=== PATIENT | male | born 1950 | race Caucasian/White ===

== ENCOUNTER 2018-08-23 12:21 | Emergency (ER) | payer MEDICARE, SELFPAY ==
[2018-08-23 12:22] VITALS: BP 167/90; PULSE 64; RESP 16; TEMP 36.7; O2SAT 97; BMI 30.4
--- NOTE | 2018-08-23 12:55 | CT_ITS ---
STUDY: CT ABDOMEN AND PELVIS WITHOUT CONTRAST REASON FOR EXAM: Male, 67 years old. 4 day history of left lower quadrant pain with nausea and vomiting. RADIATION DOSAGE (If Supplied By Facility): CTDIvol = ( 14.62 ) mGy, DLP = ( 713.48 ) mGycm TECHNIQUE: Transaxial images were obtained from the dome of the diaphragm to the symphysis pubis without oral contrast, and without intravenous contrast. Sagittal and coronal images were reconstructed. Individualized dose optimization techniques were used for this CT. COMPARISON: None. FINDINGS: The visualized lung bases are unremarkable. The visualized portions of the heart are within normal limits. Normal liver. Normal gallbladder and extrahepatic biliary system. There is mild splenomegaly. Normal pancreas. Normal bilateral adrenal glands. Normal right kidney. Mild degree of left hydronephrosis and left hydroureter due to a 4.4 mm calculus in the proximal portion of the left ureter. There is evidence of left perinephric stranding and left periureteric stranding. There is a small hiatal hernia. Normal small intestine. There are multiple colonic diverticula consistent with diverticulosis. The appendix is visualized and appears normal. There is scattered atherosclerotic calcification of the abdominal aorta, without a demonstrated aneurysm. Normal inferior vena cava. Normal retroperitoneum. Normal urinary bladder. There is a left-sided inguinal hernia containing adipose tissue. Small umbilical hernia containing fat. There are degenerative changes of the visualized lumbar spine. Minimal anterior listhesis of L4 on L5 with spondylolysis of the pars interarticularis of the L4 vertebrae. CT/Abdomen/Pelvis without Cont IMPRESSION: 4.4 mm calculus in the proximal portion of the left ureter causing left hydronephrosis with left perinephric stranding. Electronically Signed: Sam Fletcher MD at 14:27 EST Tel [phone], Service support ,
--- NOTE | 2018-08-23 12:57 | ED.VISSUMM ---
- ER Visit Summary Date of Service: 08/23/18 Chief Complaint: Abdominal pain History of Present Illness: The patient is a 67 M with left lower quadrant abdominal pain. Symptoms started about 4 days ago. They have waxed and waned. He do not radiate or migrate. Associate with nausea and vomiting. The patient has never had abdominal surgery or colonoscopy. Denies any bowel changes. Denies any urinary symptoms. Denies back pain. Denies fevers. Physical Examination: Afebrile vital signs unremarkable except for a blood pressure of 167/90. Nontoxic and in no acute distress. Alert and oriented. Heart regular rate and rhythm. Lungs clear. Abdomen tender left lower quadrant. No guarding or rebound. Skin appears normal. Test Results: Labs, urinalysis, and CT pending. Emergency Department Course and Treatment: Patient treated with fluids, morphine, and Zofran while awaiting results. CBC normal. BUN 22 and creatinine 2.41. Total bilirubin 1.3. Lipase normal. Urinalysis unremarkable. CT showed a proximal left ureter stone 4.4 mm with hydronephrosis and stranding. Patient is doing well on reevaluation and would like to go home. I discussed him with Dr. To. He will follow-up in the office. He will follow-up with the elevated creatinine. Patient was given a prescription for Percocet, Zofran, and Flomax. Return for any new or worsening issues. Treatment Plan: As above Disposition: Discharge Impression: 1. Ureteral colic 2. Elevated creatinine This note was generated with [employer] dictation software. It may contain incorrect words, spelling, and punctuation that were not noted in review of the chart prior to signing ED Disposition - Plan for ED Patient: Chief Complaint: Abd Pain Referrals: NOT,DEFINED [NON-STAFF] -
[2018-08-23 13:07] LABS: Absolute Lymphocyte Count 0.57 X10^3/ul (0.83-4.51); Absolute Neutrophil Count 8.2 X10^3/uL (2.0-7.7); Basophil# 0.02 X10^3/uL; Basophil% 0.2 % (0-1); Eosinophil# 0.09 X10^3/uL; Eosinophils% 0.9 % (0-5); Hemoglobin 14.2 g/dl (13.0-16.5); Lymphocyte # 0.57 X10^3/ul (4.0); Mean Corp Hgb Conc 34.6 g/gl (32-36); Mean Corpuscular Hgb 30.2 pg (27.0-32.0); Mean Corpuscular Volume 87.2 fL (80-94); Mean Platelet Vol. 8.2 fl (6.2-12.0); Monocyte% 6.3 % (0-10); Neutrophil # 8.19 X10^3/uL (2.7-7.7); Neutrophil % 86.4 % (47-70); Platelet Count 202 K/mm3 (150-450); RBC Distribution Width CV 13.1 % (11.6-14.6); RBC Distribution Width SD 40.9 fl (35.1-43.9); White Blood Count 9.5 K/mm3 (4.4-11.0)
[2018-08-23 13:08] LABS: Differential Indicated SCAN CRITERIA MET; POSITIVE COUNT NO; POSITIVE DIFFERENTIAL YES; POSITIVE MORPHOLOGY NO
[2018-08-23 13:20] LABS: ALB/GLOB Ratio 1.2 RATIO (0.9-2.4); AST(SGOT) 21 U/L (15-37); Alanine Aminotransfer ALT/SGPT 28 U/L (16-61); Albumin, Serum 3.8 g/dL (3.2-5.0); Alkaline Phosphatase 88 U/L (45-117); Anion Gap 8 (5-15); BUN 22 mg/dL (7-18); BUN/Creat Ratio 9.1 RATIO (10-20); Calcium,Total 8.5 mg/dL (8.5-10.1); Chloride 104 mmol/L (98-107); Creatinine, Serum 2.41 mg/dL (0.70-1.30); EST Glomerular Filtration Rate 29 mL/min (>60); Est Glom Filt Rate - Afr Amer 35 mL/min (>60); Estimated Creatinine Clearance 28.38 ml/min; Globulin 3.3 g/dL (2.2-4.2); Glucose 89 mg/dL (74-106); Lipase 118 U/L (73-393); Potassium 3.8 mmol/L (3.5-5.1); Protein, Total 7.1 g/dL (6.4-8.2); Sodium Level 138 mmol/L (136-145)
[2018-08-23] MEDS: Ondansetron 4 MG/2 ML Vial IV (13:42)
[2018-08-23] MEDS: Morphine 4 MG/ML Syringe IV (13:42)
[2018-08-23] MEDS: 0.9% Normal Saline 1,000 ML 1000 ML IV (13:42)
[2018-08-23 15:47] LABS: Bacteria 0 SEEN /hpf (None Seen); Mucous, Urine 0 SEEN /hpf (<or=2+); Red Blood Cells-Urine 0 SEEN /hpf (0-5); Squamous Epithelial Cells - UA 0 SEEN /hpf (0-5); White Blood Cells 0 SEEN /hpf (0-5)
[2018-08-23 15:49] LABS: Glucose, Dipstick Normal (Normal); Ketone-Dipstick 15 mg/dl (Negative); Leukocyte Esterase-Dipstick Negative /ul (Negative); Nitrite-Dipstick Negative (Negative); Occult Blood-Urine Negative /ul (Negative); Protein-Dipstick 15 mg/dl (Negative); Specific Gravity, Urine 1.015 (1.002-1.030); Urine Bilirubin Dipstick Negative (Negative); Urine Urobilinogen Normal (Normal)
[2018-08-23 15:52] LABS: Color, Urine Yellow (Yellow); Urine Clarity Clear (Clear)
--- NOTE | 2018-08-23 16:37 | ED.DEP ---
ED Disposition - Plan for ED Patient: Chief Complaint: Abd Pain Instructions: Understanding Kidney Stones Prescriptions: Oxycodone HCl/Acetaminophen [Percocet 5/325] 1 tab PO Q6H PRN PRN 3 Days #12 tab PRN Reason: Pain Ondansetron [Zofran Odt] 4 mg PO Q8H PRN PRN #10 tab PRN Reason: Nausea Tamsulosin HCl [Flomax] 0.4 mg PO DAILY #7 cap Referrals: Manfred To MD [STAFF PHYSICIAN] - Additional Instructions: Call Dr. To tomorrow to set up a follow-up appointment
[2018-08-23] MEDS: HYDROcodone Bitartrate/Apap 5/325 Tablet PO (16:56)
== END 2018-08-23 17:05 | disposition home or self-care (01) ==
LOC: ED 13:21
PROVIDERS: Emergency Provider Emergency Medicine
DX: N13.2 Hydronephrosis with renal and ureteral calculous obstruction (principal); Z87.442 Personal history of urinary calculi; R79.89 Other specified abnormal findings of blood chemistry; I10 Essential (primary) hypertension
CPT/HCPCS: 74176; 80053; 81001; 83690; 85025; 96361; 96374; 96375; J7030; A4216; J2405

== ENCOUNTER 2018-08-23 20:32 | Inpatient (IN) | payer MEDICARE, SELFPAY ==
[2018-08-23 20:33] VITALS: BP 159/80; PULSE 59; RESP 18; TEMP 36.2; O2SAT 98
[2018-08-23 20:34] VITALS: BP 159/80; PULSE 58; RESP 17; TEMP 36.2; O2SAT 98; BMI 30.4
[2018-08-23] MEDS: 0.9% Normal Saline 1,000 ML 999 ML IV (21:37)
[2018-08-23] MEDS: Ondansetron 4 MG/2 ML Vial IV (21:37)
[2018-08-23] MEDS: Morphine 4 MG/ML Syringe IV (21:37)
--- NOTE | 2018-08-23 21:54 | HP.PCM_ITS ---
Problem List (1) Left ureteral calculus Status: Acute (2) acute kidney injury Status: Acute (3) Left sided pyelonephritis Status: Acute (4) Hydronephrosis, left Status: Acute (5) Hypertension Status: Chronic History of Present Illness Date of Admission: 08/23/18 Chief Complaint: Left sided abdominal pain since Monday on and off The patient is a 67 year old M with no significant medical problem but seems possible undiagnosed hypertension came to ER in the morning when he had left si ded abdominal pain since Monday. The pain is starting to Monday along with nausea and vomiting and then it went away. For last 2 days it was mild and he did not bother her too much but today in the morning pain became very severe, colicky nature, localized left lumbar region that brought him to ER. In ED, CT abdomen was done that showed 4.4 mm calculus in proximal portion of left ureter causing left hydronephrosis with left perinephric stranding. Patient did not want to get admitted but basic blood work showed creatinine 2.41, BUN 22, normal transaminases but bili 1.3. UA was bland and negative for pyuria or hematuria. Patient went home on Percocet, Flomax and Zofran but came back in the evening when the pain got very excruciating and thereafter he is admitted. [] ED vitals shows blood pressure 167/90, no fever, no tachypnea, no tachycardia or hypoxia. No leukocytosis. He had a history of spontaneous passing of kidney stone about 25 years ago. Patient does not see any doctor. Past Medical History Past Medical History (Chronic Problems): Chronic Problems Hypertension (Chronic) Allergies No Known Allergies Allergy (Verified 08/23/18 20:33) Home Medications: Ambulatory Orders Medication Instructions Recorded Ondansetron [Zofran Odt] 4 mg PO Q8H PRN PRN #10 tab 08/23/18 Oxycodone HCl/Acetaminophen 1 tab PO Q6H PRN PRN 3 Days #12 tab 08/23/18 [Percocet 5/325] Tamsulosin HCl [Flomax] 0.4 mg PO DAILY #7 cap 08/23/18 Smoking Status: Never smoker - *Family History Paternal History Items: No pertinent history - No significant history of kidney stone and family Review of Systems Constitutional: Reports: Anorexia, Weakness, Fatigue. Denies: Chills, Fever HEENT: Denies: Head Aches, Sinus Congestion, Sinus Drainage Cardiovascular: Denies: Chest Pain, Palpitations Respiratory: Denies: Cough, Shortness of breath at rest, Sputum production Gastrointestinal: Reports: Abdominal Pain, Nausea. Denies: Hematemesis, Hematochezia, Melena Genitourinary: Denies: Dysuria, Frequency, Hematuria, Incontinence, Nocturia, Retention, Urgency Musculoskeletal: Denies: Joint Pain, Joint Tenderness Skin: Denies: Rash, Wounds Neurological: Denies: Numbness, Tingling, Focal weakness Psychiatric: Denies: Anxiety, Depression, Homicidal Ideations, Suicidal Ideations Hematologic/ Lymphatic: Denies: Easy Bruising, Easy Bleeding VTE Information - Inpt Only VTE Present on Admission: No VTE Mechan Device Prophylaxis: None VTE Pharm Prophylaxis ordered?: Yes Patient Problems: Active and Suspected Problems Left ureteral calculus (Acute) acute kidney injury (Acute) Left sided pyelonephritis (Acute) Hydronephrosis, left (Acute) - Physical Exam General: Alert, Oriented x3, Cooperative HEENT: Atraumatic, PERRLA, EOMI, Normocephalic Neck: Supple, No JVD, Negative Carotid Bruits Lungs: Clear to auscultation, Normal air movement, No rhonchi, No wheeze, No rales Cardiovascular: Regular rate, Regular Rhythm, Normal S1, Normal S2, No murmurs Abdomen: Bowel Sounds Present, Soft, Tender - Tenderness present over left lumbar region and abdomen. No rebound tenderness. No guarding/rigidity. No renal angle tenderness or fullness., - Extremities: No edema, Capillary Refill Less than 3 Seconds Skin: No rashes, No breakdown Musculoskeletal: No Tenderness to Palpation of Joints or Extremities Neurological: Cranial nerves II-XII grossly intact, Deep Tendon Reflexes 2+/4 and Symmetrical, Neuro grossly intact, Motor Exam 5/5 strength throughout Psych/Mental Status: Normal Affect, Appropriate Vital Signs Temp Pulse Resp BP Pulse Ox 97.1 F L 58 L 17 159/80 H 98 08/23/18 20:34 08/23/18 20:34 08/23/18 20:34 08/23/18 20:34 08/23/18 20:34 Oxygen Delivery Method Room Air Weight: 200 lb Body Mass Index (BMI) 30.4 Assessment/Plan All Active Problems Left ureteral calculus (Acute) acute kidney injury (Acute) Left sided pyelonephritis (Acute) Hydronephrosis, left (Acute) The patient is a 67 year old M with no significant medical problem but seems possible undiagnosed hypertension came to ER in the morning when he had left sided abdominal pain since Monday. The pain is starting to Monday along with nausea and vomiting and then it went away. For last 2 days it was mild and he did not bother her too much but today in the morning pain became very severe, colicky nature, localized left lumbar region that brought him to ER. In ED, CT abdomen was done that showed 4.4 mm calculus in proximal portion of left ureter causing left hydronephrosis with left perinephric stranding. Patient did not want to get admitted but basic blood work showed creatinine 2.41, BUN 22, normal transaminases but bili 1.3. UA was bland and negative for pyuria or hematuria. Patient went home on Percocet, Flomax and Zofran but came back in the evening when the pain got very excruciating and thereafter he is admitted. [] ED vitals shows blood pressure 167/90, no fever, no tachypnea, no tachycardia or hypoxia. No leukocytosis. He had a history of spontaneous passing of kidney stone about 25 years ago. Patient does not see any doctor. 1. Left ureteric calculus 4.4 mm with consequent obstructive uropathy, left hydronephrosis and pyelonephritis: Patient is being admitted on the [facility] floor. Started on IV fluid normal saline. Started IV antibiotic ceftriaxone 1 g every 12 hourly. Discussed with urologist Dr. To and advised conservative management with IV fluid, antibiotics, Flomax and if he does not pass it spontaneously will need cystoscopy/stenting, perhaps on Monday. 2. Left pyelonephritis: Even UA is negative but in view of pyelonephritis and obstructive uropathy, started on antibiotic as mentioned above. Blood cultures x2 and urine culture ordered. 3. Acute kidney injury, probably related to prerenal from nausea vomiting or post renal, but hard to justify as it is unilateral left ureteric obstruction. CT abdomen reported as normal right kidney with mild degree of left hydronephrosis and left hydroureter with left perinephric stranding and periureteric stranding. 4. Possible undiagnosed hypertension: Patient blood pressure is high as mentioned in ER. Started on amlodipine. Follow-up blood pressure trend and titrate antihypertensive medication accordingly. 5. DVT prophylaxis: On heparin 5000 units subcutaneous twice daily. This note was generated with [employer] dictation software. Every effort was made to ensure accuracy, however computerized bait man mistakes may persist. Code Visit Inpatient E&M: 59526 Init Hosp L3
[2018-08-23 22:30] VITALS: BMI 30.7
[2018-08-23 22:44] VITALS: BP 150/77; PULSE 56; RESP 15; TEMP 36.8; O2SAT 99
--- NOTE | 2018-08-23 22:53 | ED.VISSUMM ---
- ER Visit Summary Date of Service: 08/23/18 Chief Complaint: Flank pain History of Present Illness: The patient is a 67 M who has left-sided flank pain. He was seen here earlier today and diagnosed with a kidney stone. See that dictation for details. He went home but he was unable to bear the pain. He has never seen a urologist before. He denies any hematuria. No fevers. Physical Examination: Vital signs reviewed. HEENT exam unremarkable. Heart is regular rate and rhythm without murmurs. Lungs are clear to auscultation. Abdomen is soft and nontender. Extremities reveal no edema. Skin exam normal. Neurologic exam normal. Test Results: None performed as he already had labs, CAT scan and urinalysis a few hours ago Emergency Department Course and Treatment: Patient was given morphine, Zofran and normal saline. He was discussed with the hospitalist for admission. I did talk with Dr. To who recommended medical management for this. Treatment Plan: [] Disposition: Admit Impression: Left ureterolithiasis Acute renal failure This note was generated with [employer] software. It may contain incorrect words, spelling, and punctuation that were not noted in review of the chart prior to signing ED Disposition - Plan for ED Patient: Disposition: Acute Care Hospital [facility] Chief Complaint: Flank Pain
[2018-08-23 23:47] VITALS: BP 157/82; PULSE 57
[2018-08-23] MEDS: Tamsulosin HCl 0.4 MG Capsule PO (23:52)
[2018-08-23] MEDS: amLODIPine 5 MG Tablet PO (23:53)
[2018-08-23] MEDS: Famotidine 20 MG Tablet PO (23:53)
[2018-08-23] MEDS: Heparin Injection (Vial) 5,000 UNIT/ML VIAL 5000 UNIT SC (23:53)
[2018-08-24] MEDS: Ceftriaxone 1 GM/50 ML BAG IV ×3 (01:16→22:34)
[2018-08-24 04:26] VITALS: BP 135/74; PULSE 61; RESP 18; TEMP 37.2; O2SAT 96
[2018-08-24] MEDS: BENZOCAINE/MENTHOL 1 LOZENGE 2 LOZENGE MUCOUS MEM (06:04)
[2018-08-24] MEDS: 0.9% Normal Saline 1,000 ML 150 ML IV ×4 (06:39→20:54)
--- NOTE | 2018-08-24 06:54 | CON.PCM_ITS ---
Reason for Consult Date of Consultation: 08/24/18 Reason for Consultation: Left kidney stone 4 mm History of Present Illness: The patient is a 67 year old male who presented to the ER with a 4 mm stone in the mid ureter E then re-presented again with the same stone and severe pain pos sible he could pass a stone today talked about the options of observation and strain in the urine to see if he could spontaneously spot past the stone versus surgical intervention he is okay with a trial of passage. Past Medical History Past Medical History (Chronic Problems): Chronic Problems Hypertension (Chronic) Allergies No Known Allergies Allergy (Verified 08/23/18 20:33) Home Medications: Ambulatory Orders Medication Instructions Recorded Ondansetron [Zofran Odt] 4 mg PO Q8H PRN PRN #10 tab 08/23/18 Oxycodone HCl/Acetaminophen 1 tab PO Q6H PRN PRN 3 Days #12 tab 08/23/18 [Percocet 5/325] Tamsulosin HCl [Flomax] 0.4 mg PO DAILY 08/23/18 Surgical History: noncontributory Psychiatric History: No pertinent psych hx Lives: With Family Smoking Status: Never smoker Alcohol: None Drugs: None - *Family History Paternal History Items: No pertinent history - No significant history of kidney stone and family Review of Systems Constitutional: Denies: Chills, Fever, Weight Change HEENT: Denies: Head Aches, Sinus Congestion, Sinus Drainage Cardiovascular: Denies: Chest Pain, Palpitations Respiratory: Denies: Cough, Shortness of breath at rest, Sputum production Gastrointestinal: Denies: Abdominal Pain, Nausea, Vomiting Genitourinary: Denies: Dysuria Musculoskeletal: Denies: Joint Pain, Joint Tenderness Skin: Denies: Rash, Wounds Neurological: Denies: Numbness, Tingling, Focal weakness Psychiatric: Denies: Anxiety, Depression, Homicidal Ideations, Suicidal Ideations Hematologic/ Lymphatic: Denies: Easy Bruising, Easy Bleeding Physical Exam - Physical Exam Vital Signs Temp 98.9 F 08/24/18 04:26 Pulse 61 08/24/18 04:26 Resp 18 08/24/18 04:26 BP 135/74 H 08/24/18 04:26 Pulse Ox 96 08/24/18 04:26 Intake & Output 08/22/18 08/23/18 08/24/18 23:59 23:59 23:59 Intake Total 1537 / 1537 Output Total 650 / 650 Balance 887 / 887 Weight: 91.6 kg Intake: Oral 500 / 500 IV fluid/meds 1037 / 1037 Output: Urine 650 / 650 General: Alert, Oriented x3 HEENT: Atraumatic Oral: Moist Mucosa Neck: Supple Lungs: Normal air movement Cardiovascular: Regular rate Abdomen: Soft, Obese Assessment/Plan All Active Problems Left ureteral calculus (Acute) acute kidney injury (Acute) Left sided pyelonephritis (Acute) Hydronephrosis, left (Acute) 67-year-old male with a small stone in the mid left ureter, strain all the urine recommend Flomax 0.4 mg daily push fluids will review over the weekend if fails to pass the stone may have to take the surgery if he fails to pass stone. Patient is agreeable with plan.
[2018-08-24] MEDS: Morphine 2 MG/ML Syringe IV ×3 (07:25→20:53)
[2018-08-24 07:42] LABS: Absolute Lymphocyte Count 0.51 X10^3/ul (0.83-4.51); Absolute Neutrophil Count 6.3 X10^3/uL (2.0-7.7); Basophil# 0.01 X10^3/uL; Basophil% 0.1 % (0-1); Eosinophil# 0.11 X10^3/uL; Eosinophils% 1.5 % (0-5); Hematocrit 35.4 % (40-54); Hemoglobin 12.2 g/dl (13.0-16.5); Lymphocyte # 0.51 X10^3/ul (4.0); Lymphocyte % 6.8 % (19-41); Mean Corp Hgb Conc 34.5 g/gl (32-36); Mean Corpuscular Hgb 30.7 pg (27.0-32.0); Mean Corpuscular Volume 89.2 fL (80-94); Mean Platelet Vol. 8.3 fl (6.2-12.0); Monocyte# 0.54 X10^3/uL; Monocyte% 7.2 % (0-10); Neutrophil # 6.28 X10^3/uL (2.7-7.7); Neutrophil % 84.3 % (47-70); Platelet Count 179 K/mm3 (150-450); RBC Distribution Width SD 41.3 fl (35.1-43.9); Red Blood Count 3.97 M/mm3 (4.6-6.2); White Blood Count 7.5 K/mm3 (4.4-11.0)
[2018-08-24 07:46] LABS: Differential Indicated SCAN CRITERIA MET; POSITIVE COUNT NO; POSITIVE DIFFERENTIAL YES; POSITIVE MORPHOLOGY NO
[2018-08-24 07:47] LABS: Anion Gap 6 (5-15); BUN 20 mg/dL (7-18); BUN/Creat Ratio 8.9 RATIO (10-20); Calcium,Total 7.7 mg/dL (8.5-10.1); Chloride 108 mmol/L (98-107); Creatinine, Serum 2.24 mg/dL (0.70-1.30); EST Glomerular Filtration Rate 31 mL/min (>60); Est Glom Filt Rate - Afr Amer 38 mL/min (>60); Estimated Creatinine Clearance 30.54 ml/min; Glucose 100 mg/dL (74-106); Sodium Level 139 mmol/L (136-145)
[2018-08-24 08:46] VITALS: BP 150/86; PULSE 57; RESP 18; TEMP 36.6; O2SAT 95
[2018-08-24] MEDS: 0.9% NaCl Peripheral Flush Adult/Peds IV (09:16)
[2018-08-24] MEDS: Heparin Injection (Vial) 5,000 UNIT/ML VIAL 5000 UNIT SC ×2 (09:31→22:34)
[2018-08-24] MEDS: amLODIPine 5 MG Tablet PO (09:31)
[2018-08-24] MEDS: Famotidine 20 MG Tablet PO ×2 (09:31→22:34)
--- NOTE | 2018-08-24 10:53 | PCM.PN.HOSP ---
Patient Problems: Active and Suspected Problems Left ureteral calculus (Acute) acute kidney injury (Acute) Left sided pyelonephritis (Acute) Hydronephrosis, left (Acute) Subjective: Patient admitted with a left ureteric stone. He still complains of mild lower abdominal pain. He denies any fever or chills, cough or chest pain, shortness of breath, abdominal pain, nausea or vomiting. Review of systems otherwise negative. Labs and vitals reviewed. Vitals/I&O's: Vital Signs Temp Pulse Resp BP Pulse Ox 97.9 F 57 L 18 150/86 H 95 08/24/18 08:46 08/24/18 08:46 08/24/18 08:46 08/24/18 08:46 08/24/18 08:46 Oxygen Delivery Method Room Air Weight: 201 lb 15.095 oz Body Mass Index (BMI) 30.7 Intake and Output for Last 24 Hours 08/22/18 08/23/18 08/24/18 23:59 23:59 23:59 Intake Total 1537 / 1537 Output Total 650 / 650 Balance 887 / 887 General: Alert, Oriented x3, Cooperative, No apparent distress HEENT: Atraumatic, PERRLA, EOMI, Normocephalic Oral: Moist Mucosa Neck: Supple, No JVD, Negative Carotid Bruits Lungs: Clear to auscultation, Normal air movement, No rhonchi, No wheeze, No rales Cardiovascular: Regular rate, Regular Rhythm, Normal S1, Normal S2, No murmurs Abdomen: Bowel Sounds Present, Soft, Non-Distended, No Hepato-splenomegaly, - - mild left lower quadrant tenderness, with no guarding or rebound tenderness Extremities: No clubbing, No cyanosis, No edema, Capillary Refill Less than 3 Seconds Skin: No rashes, No breakdown Musculoskeletal: No Tenderness to Palpation of Joints or Extremities Lymphatic: No Cervical, Supraclavicular, or Inguinal Adenopathy Neurological: Cranial nerves II-XII grossly intact, Neuro grossly intact, Motor Exam 5/5 strength throughout Psych/Mental Status: Normal Affect, Appropriate, Alert and oriented to time, place, person, mood and affect Laboratory Results 08/24/18 07:15: WBC 7.5, RBC 3.97 L, Hgb 12.2 L, Hct 35.4 L, MCV 89.2, MCH 30.7, MCHC 34.5, RDW 13.0, RDW Differential 41.3, Plt Count 179, MPV 8.3, Immature Gran % (Auto) 0.100, Neut % (Auto) 84.3 H, Lymph % (Auto) 6.8 L, Willacy % (Auto) 7.2, Eos % (Auto) 1.5, Baso % (Auto) 0.1, Absolute Neuts (auto) 6.3, Absolute Lymphs (auto) 0.51 L, Total Counted Not Reportable, Differential Comment COMMENT 08/24/18 07:15: Sodium 139, Potassium 4.0, Chloride 108 H, Carbon Dioxide 25.0, Anion Gap 6, BUN 20 H, Creatinine 2.24 H, Estim Creat Clear Calc 30.54, Est GFR (MDRD) Af Amer 38 L, Est GFR (MDRD) Non-Af 31 L, BUN/Creatinine Ratio 8.9 L, Glucose 100, Calcium 7.7 L Current Medications Acetaminophen (Tylenol) 650 mg PO Q6H PRN PRN PRN Reason: Mild Pain (scale 0-3)/T>100.7 Al Hydroxide/Mg Hydroxide (Mylanta Ii) 30 ml PO Q6H PRN PRN PRN Reason: Gastric burning Amlodipine Besylate (Norvasc) 5 mg PO DAILY [facility] Last Admin: 08/24/18 09:31 Dose: 5 mg Famotidine (Pepcid) 20 mg PO BID [facility] Last Admin: 08/24/18 09:31 Dose: 20 mg Heparin Sodium (Porcine) (Heparin Na) 5,000 unit SC Q12 [facility] Last Admin: 08/24/18 09:31 Dose: 5,000 unit Sodium Chloride () 1,000 mls @ 150 mls/hr IV .Q6H40M [facility] Last Admin: 08/24/18 06:39 Dose: 150 mls/hr Ceftriaxone Sodium (Rocephin) 1 gm in 50 mls @ 100 mls/hr IV Q12 [facility] Last Admin: 08/24/18 09:31 Dose: 100 mls/hr Magnesium Hydroxide (Milk Of Magnesia) 30 ml PO DAILY PRN PRN PRN Reason: Constipation Morphine Sulfate () 2 - 4 mg IV Q3H PRN PRN PRN Reason: Severe Pain (pain scale 6-10) Last Admin: 08/24/18 09:15 Dose: 2 mg Ondansetron HCl (Zofran) 4 mg IV Q4H PRN PRN PRN Reason: NAUSEA Oxycodone HCl (Oxyir) 10 mg PO Q4H PRN PRN PRN Reason: Moderate Pain (pain scale 4-5) Promethazine HCl (Phenergan) 12.5 mg IV Q6H PRN PRN PRN Reason: NAUSEA/VOMITING Psyllium Hydrophilic Mucilloid (Metamucil) 1 packet PO DAILY PRN PRN PRN Reason: CONSTIPATION Senna/Docusate Sodium (Senokot-S, [place]-Colace) 2 tablet PO BID PRN PRN PRN Reason: Constipation Sodium Chloride () 5 - 30 ml IV UD PRN PRN Reason: SALINE FLUSH Last Admin: 08/24/18 09:16 Dose: 10 ml Tamsulosin HCl (Flomax) 0.4 mg PO DAILY@1730 [facility] Last Admin: 08/23/18 23:52 Dose: 0.4 mg Throat Lozenges (Cepacol Sore Throat Lozenge) 2 lozenge MUCOUS MEM Q2H PRN PRN PRN Reason: sore throat Last Admin: 08/24/18 06:04 Dose: 2 lozenge Zolpidem Tartrate (Ambien (Generic)) 5 mg PO QHS PRN PRN PRN Reason: INSOMNIA Medical Necessity - Tobacco Use Smoking Status: Never smoker Assessment/Plan All Active Problems Left ureteral calculus (Acute) acute kidney injury (Acute) Left sided pyelonephritis (Acute) Hydronephrosis, left (Acute) 1. Left mid ureter calculus Still complains of mild left lower quadrant tenderness. CT of the abdomen done to get to the ED a couple of years ago the thyroid 12.4 mm left ureteric calculus with consequent obstructive uropathy, left hydronephrosis and pyelonephritis. Patient has remained afebrile and does not have any Elevated white cell count. Urology on board. Currently on IV fluids, pain meds and tamsulosin. Per urology, if it does not pass stone within 24-48 hours he will need surgical intervention. continue IVF, IV morphine for pain and PO tamsulosin on IV ceftriaxone for pyelonephritis 2. MARIA TERESA May be post renal from hydronephrosis. Also has nausea and vomiting so prerenal MARIA TERESA may play a role. CT abdomen showed left hydronephrosis and hydroureter. Currently being resuscitated with IV fluids. Creatinine has trended up from 2.41 admission to 2.24. We will continue to monitor. 3. Left pyelonephritis: CT abdomen showed left perinephric stranding and left periureteric stranding. UA was bland. Started on IV ceftriaxone. Has no leukocytosis. Will continue IV ceftriaxone for now until kidney stone is removed or passes. Urine and blood cultures pending. 4. Hypertension: BP has been in 150s systolic since admission. Was in the 130s systolically this morning. Started on p.o. amlodipine. Will monitor blood pressure and adjust as needed. DVT prophylaxis: heparin GI prophylaxis: Famotidine Code Visit Inpatient E&M: [id number] [facility] L3
--- NOTE | 2018-08-24 10:55 | CASEMGMT ---
ENRIKE SIM INITIAL ASSESSMENT D/C PLAN: Home Face to Face with patient for initial transition planning/care coordination assessment. ENRIKE SIM introduced self and role at [facility]. Care providers, pharmacy, and demographics verified. PCP: [facility] was seeing Dr Aguilar in [place], [place], but wishes to switch PCP. Given list of local PCP's. Preferred Pharmacy: [facility]. has prescription savings card at [facility] and has no issues paying for medication. Insurance: MCR A only. Discussion with patient about insurance coverage and prescription coverage. Information provided and questions answered. Pt states he is aware that it is open enrollment at this time and [facility] is planning on looking into further coverage as soon as he is discharged. Prescription Benefit: Does not have prescription coverage Living Will/HPOA: [facility] does not have LW or HCPOA. Is interested in further information and would like to talk with [facility]. AD booklet given and referral made to [facility] Mcdaniel. LNOK: . Living Arrangements: Lives with . Son, daughter, and grandson live with them. Live in a one-story home w/no steps to enter. Pt independent @ home and requires no assistance. 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 Transportation: Patient drives. DME: Denies using any DME and denies needs. HHC: Pt has never used HHC or been to a SNF. Denies needs on discharge. Pt wishes to return home. Denies needs and no needs identified. Pt does not smoke or drink alcohol. CM to follow for any further discharge planning needs that may arise. Do ORTIZ RN, CM
--- NOTE | 2018-08-24 10:57 | PN_ITS ---
Patient Problems: Active and Suspected Problems Left ureteral calculus (Acute) acute kidney injury (Acute) Left sided pyelonephritis (Acute) Hydronephrosis, left (Acute) Subjective: Patient admitted with a left ureteric stone. He still complains of mild lower abdominal pain. He denies any fever or chills, cough or chest pain, shortness of breath, abdominal pain, nausea or vomiting. Review of systems otherwise negative. Labs and vitals reviewed. Vitals/I&O's: Vital Signs Temp Pulse Resp BP Pulse Ox 97.9 F 57 L 18 150/86 H 95 08/24/18 08:46 08/24/18 08:46 08/24/18 08:46 08/24/18 08:46 08/24/18 08:46 Oxygen Delivery Method Room Air Weight: 201 lb 15.095 oz Body Mass Index (BMI) 30.7 Intake and Output for Last 24 Hours 08/22/18 08/23/18 08/24/18 23:59 23:59 23:59 Intake Total 1537 / 1537 Output Total 650 / 650 Balance 887 / 887 General: Alert, Oriented x3, Cooperative, No apparent distress HEENT: Atraumatic, PERRLA, EOMI, Normocephalic Oral: Moist Mucosa Neck: Supple, No JVD, Negative Carotid Bruits Lungs: Clear to auscultation, Normal air movement, No rhonchi, No wheeze, No rales Cardiovascular: Regular rate, Regular Rhythm, Normal S1, Normal S2, No murmurs Abdomen: Bowel Sounds Present, Soft, Non-Distended, No Hepato-splenomegaly, - - mild left lower quadrant tenderness, with no guarding or rebound tenderness Extremities: No clubbing, No cyanosis, No edema, Capillary Refill Less than 3 Seconds Skin: No rashes, No breakdown Musculoskeletal: No Tenderness to Palpation of Joints or Extremities Lymphatic: No Cervical, Supraclavicular, or Inguinal Adenopathy Neurological: Cranial nerves II-XII grossly intact, Neuro grossly intact, Motor Exam 5/5 strength throughout Psych/Mental Status: Normal Affect, Appropriate, Alert and oriented to time, place, person, mood and affect Laboratory Results 08/24/18 07:15: WBC 7.5, RBC 3.97 L, Hgb 12.2 L, Hct 35.4 L, MCV 89.2, MCH 30.7, MCHC 34.5, RDW 13.0, RDW Differential 41.3, Plt Count 179, MPV 8.3, Immature Gran % (Auto) 0.100, Neut % (Auto) 84.3 H, Lymph % (Auto) 6.8 L, [place] % (Auto) 7.2, Eos % (Auto) 1.5, Baso % (Auto) 0.1, Absolute Neuts (auto) 6.3, Absolute Lymphs (auto) 0.51 L, Total Counted Not Reportable, Differential Comment COMMENT 08/24/18 07:15: Sodium 139, Potassium 4.0, Chloride 108 H, Carbon Dioxide 25.0, Anion Gap 6, BUN 20 H, Creatinine 2.24 H, Estim Creat Clear Calc 30.54, Est GFR (MDRD) Af Amer 38 L, Est GFR (MDRD) Non-Af 31 L, BUN/Creatinine Ratio 8.9 L, Glucose 100, Calcium 7.7 L Current Medications Acetaminophen (Tylenol) 650 mg PO Q6H PRN PRN PRN Reason: Mild Pain (scale 0-3)/T>100.7 Al Hydroxide/Mg Hydroxide (Mylanta Ii) 30 ml PO Q6H PRN PRN PRN Reason: Gastric burning Amlodipine Besylate (Norvasc) 5 mg PO DAILY [facility] Last Admin: 08/24/18 09:31 Dose: 5 mg Famotidine (Pepcid) 20 mg PO BID [facility] Last Admin: 08/24/18 09:31 Dose: 20 mg Heparin Sodium (Porcine) (Heparin Na) 5,000 unit SC Q12 [facility] Last Admin: 08/24/18 09:31 Dose: 5,000 unit Sodium Chloride () 1,000 mls @ 150 mls/hr IV .Q6H40M [facility] Last Admin: 08/24/18 06:39 Dose: 150 mls/hr Ceftriaxone Sodium (Rocephin) 1 gm in 50 mls @ 100 mls/hr IV Q12 [facility] Last Admin: 08/24/18 09:31 Dose: 100 mls/hr Magnesium Hydroxide (Milk Of Magnesia) 30 ml PO DAILY PRN PRN PRN Reason: Constipation Morphine Sulfate () 2 - 4 mg IV Q3H PRN PRN PRN Reason: Severe Pain (pain scale 6-10) Last Admin: 08/24/18 09:15 Dose: 2 mg Ondansetron HCl (Zofran) 4 mg IV Q4H PRN PRN PRN Reason: NAUSEA Oxycodone HCl (Oxyir) 10 mg PO Q4H PRN PRN PRN Reason: Moderate Pain (pain scale 4-5) Promethazine HCl (Phenergan) 12.5 mg IV Q6H PRN PRN PRN Reason: NAUSEA/VOMITING Psyllium Hydrophilic Mucilloid (Metamucil) 1 packet PO DAILY PRN PRN PRN Reason: CONSTIPATION Senna/Docusate Sodium (Senokot-S, [place]-Colace) 2 tablet PO BID PRN PRN PRN Reason: Constipation Sodium Chloride () 5 - 30 ml IV UD PRN PRN Reason: SALINE FLUSH Last Admin: 08/24/18 09:16 Dose: 10 ml Tamsulosin HCl (Flomax) 0.4 mg PO DAILY@1730 [facility] Last Admin: 08/23/18 23:52 Dose: 0.4 mg Throat Lozenges (Cepacol Sore Throat Lozenge) 2 lozenge MUCOUS MEM Q2H PRN PRN PRN Reason: sore throat Last Admin: 08/24/18 06:04 Dose: 2 lozenge Zolpidem Tartrate (Ambien (Generic)) 5 mg PO QHS PRN PRN PRN Reason: INSOMNIA Medical Necessity - Tobacco Use Smoking Status: Never smoker Assessment/Plan All Active Problems Left ureteral calculus (Acute) acute kidney injury (Acute) Left sided pyelonephritis (Acute) Hydronephrosis, left (Acute) 1. Left mid ureter calculus * Still complains of mild left lower quadrant tenderness. * CT of the abdomen done to get to the ED a couple of years ago the thyroid 12.4 mm left ureteric calculus with consequent obstructive uropathy, left hydronephrosis and pyelonephritis. Patient has remained afebrile and does not have any Elevated white cell count. * Urology on board. Currently on IV fluids, pain meds and tamsulosin. Per urology, if it does not pass stone within 24-48 hours he will need surgical intervention. * continue IVF, IV morphine for pain and PO tamsulosin * on IV ceftriaxone for pyelonephritis * 2. MARIA TERESA * May be post renal from hydronephrosis. Also has nausea and vomiting so prerenal MARIA TERESA may play a role. * CT abdomen showed left hydronephrosis and hydroureter. Currently being resuscitated with IV fluids. Creatinine has trended up from 2.41 admission to 2.24. * We will continue to monitor. 3. Left pyelonephritis: * CT abdomen showed left perinephric stranding and left periureteric stranding. * UA was bland. Started on IV ceftriaxone. * Has no leukocytosis. Will continue IV ceftriaxone for now until kidney stone is removed or passes. * Urine and blood cultures pending. * 4. Hypertension: * BP has been in 150s systolic since admission. * Was in the 130s systolically this morning. * Started on p.o. amlodipine. * Will monitor blood pressure and adjust as needed. * DVT prophylaxis: heparin GI prophylaxis: Famotidine Code Visit Inpatient E&M: [id number] [facility] L3
--- NOTE | 2018-08-24 13:23 | CASEMGMT ---
Social Work: Met with patient to complete advance directives. Spent time with patient reviewing wishes and explaining advance directive forms. Forms completed and signature witnessed. Original given to patient and copy on chart. MILTON Gutierres
[2018-08-24 14:16] VITALS: BP 144/69; PULSE 67; RESP 14; TEMP 36.6; O2SAT 97
[2018-08-24] MEDS: Tamsulosin HCl 0.4 MG Capsule PO (16:43)
[2018-08-24 20:02] VITALS: BP 145/81; PULSE 61; RESP 16; TEMP 37.2; O2SAT 99
[2018-08-25] MEDS: Morphine 2 MG/ML Syringe IV ×2 (00:41→08:44)
[2018-08-25] MEDS: Senna/Docusate Sodium 1 Tablet 2 TABLET PO ×2 (00:47→11:18)
[2018-08-25 02:10] VITALS: BP 124/65; PULSE 68; RESP 16; TEMP 36.6; O2SAT 94
[2018-08-25] MEDS: 0.9% Normal Saline 1,000 ML 150 ML IV ×3 (04:03→18:50)
[2018-08-25] MEDS: Ondansetron 4 MG/2 ML Vial IV (08:44)
[2018-08-25] MEDS: 0.9% NaCl Peripheral Flush Adult/Peds IV (08:45)
[2018-08-25 08:50] LABS: Absolute Lymphocyte Count 0.73 X10^3/ul (0.83-4.51); Absolute Neutrophil Count 4.6 X10^3/uL (2.0-7.7); Basophil# 0.03 X10^3/uL; Basophil% 0.5 % (0-1); Eosinophil# 0.11 X10^3/uL; Eosinophils% 1.8 % (0-5); Hemoglobin 12.4 g/dl (13.0-16.5); Lymphocyte # 0.73 X10^3/ul (4.0); Mean Corp Hgb Conc 34.4 g/gl (32-36); Mean Corpuscular Hgb 30.6 pg (27.0-32.0); Mean Corpuscular Volume 88.9 fL (80-94); Mean Platelet Vol. 8.4 fl (6.2-12.0); Monocyte# 0.61 X10^3/uL; Neutrophil # 4.57 X10^3/uL (2.7-7.7); Neutrophil % 75.4 % (47-70); POSITIVE COUNT NO; POSITIVE DIFFERENTIAL NO; POSITIVE MORPHOLOGY NO; Platelet Count 170 K/mm3 (150-450); RBC Distribution Width CV 12.9 % (11.6-14.6); RBC Distribution Width SD 41.2 fl (35.1-43.9); Red Blood Count 4.05 M/mm3 (4.6-6.2); White Blood Count 6.1 K/mm3 (4.4-11.0)
[2018-08-25 09:06] LABS: Anion Gap 6 (5-15); BUN 17 mg/dL (7-18); BUN/Creat Ratio 7.3 RATIO (10-20); Calcium,Total 7.8 mg/dL (8.5-10.1); Chloride 108 mmol/L (98-107); Creatinine, Serum 2.32 mg/dL (0.70-1.30); EST Glomerular Filtration Rate 30 mL/min (>60); Est Glom Filt Rate - Afr Amer 36 mL/min (>60); Estimated Creatinine Clearance 29.48 ml/min; Glucose 92 mg/dL (74-106); Potassium 4.2 mmol/L (3.5-5.1); Sodium Level 140 mmol/L (136-145)
[2018-08-25] MEDS: amLODIPine 5 MG Tablet PO (11:17)
[2018-08-25] MEDS: Magnesium Hydroxide 30 ML UDC PO (11:17)
[2018-08-25] MEDS: Heparin Injection (Vial) 5,000 UNIT/ML VIAL 5000 UNIT SC ×2 (11:18→21:29)
[2018-08-25] MEDS: Famotidine 20 MG Tablet PO ×2 (11:18→21:29)
[2018-08-25] MEDS: Ceftriaxone 1 GM/50 ML BAG IV ×2 (11:18→21:22)
[2018-08-25] MEDS: Acetaminophen 325 MG Tablet 650 MG PO ×2 (11:18→18:53)
[2018-08-25 11:24] VITALS: BP 149/80; PULSE 58; RESP 18; TEMP 36.9; O2SAT 98
--- NOTE | 2018-08-25 11:45 | PCM.PN.HOSP ---
Patient Problems: Active and Suspected Problems Left ureteral calculus (Acute) acute kidney injury (Acute) Left sided pyelonephritis (Acute) Hydronephrosis, left (Acute) Subjective: Patient seen and examined. He still feels uncomfortable as he has not passed the stone as well as abdominal pain with assisted bloating. He denies fever or chills. He also feels nauseous but has not vomited yet. He denies any chest pain, SOB, abdominal pain, diarrhea or review of systems otherwise negative. Labs and vitals reviewed. Vitals/I&O's: Vital Signs Temp Pulse Resp BP Pulse Ox 98.5 F 58 L 18 149/80 H 98 08/25/18 11:24 08/25/18 11:24 08/25/18 11:24 08/25/18 11:24 08/25/18 11:24 Oxygen Delivery Method Room Air Weight: 201 lb 15.095 oz Body Mass Index (BMI) 30.7 Intake and Output for Last 24 Hours 08/23/18 08/24/18 08/25/18 23:59 23:59 23:59 Intake Total 3868 / 3868 2300 / 2300 Output Total 1825 / 1825 1550 / 1550 Balance 2043 / 2043 750 / 750 General: Alert, Oriented x3, Cooperative, No apparent distress HEENT: Atraumatic, PERRLA, EOMI, Normocephalic Oral: Moist Mucosa Neck: Supple, No JVD, Negative Carotid Bruits Lungs: Clear to auscultation, Normal air movement, No rhonchi, No wheeze, No rales Cardiovascular: Regular rate, Regular Rhythm, Normal S1, Normal S2, No murmurs Abdomen: Bowel Sounds Present, Soft, Non Tender, Non-Distended, No Hepato-splenomegaly Extremities: No clubbing, No cyanosis, No edema Skin: No rashes, No breakdown Musculoskeletal: No Tenderness to Palpation of Joints or Extremities Lymphatic: No Cervical, Supraclavicular, or Inguinal Adenopathy Neurological: Cranial nerves II-XII grossly intact, Neuro grossly intact, Motor Exam 5/5 strength throughout Psych/Mental Status: Normal Affect, Appropriate, Alert and oriented to time, place, person, mood and affect Microbiology Past 72 Hours 08/24/18 09:30 Sputum, Expectorated/Coughed Gram Stain - Final 08/24/18 09:30 Sputum, Expectorated/Coughed Respiratory Culture - Preliminary Appears to be normal respiratory rhina. Further studies to follow. 08/23/18 23:25 Urine, Clean Catch Urine Culture - Final Presumptive E. coli 08/24/18 10:25 Mucosa - Nasopharyngeal Respiratory Panel (PCR) - Final Rhinovirus 08/24/18 10:25 Mucosa - Nasopharyngeal Influenza Types A,B Direct FA (PRASANTH) - Final Laboratory Results 08/25/18 08:12: WBC 6.1, RBC 4.05 L, Hgb 12.4 L, Hct 36.0 L, MCV 88.9, MCH 30.6, MCHC 34.4, RDW 12.9, RDW Differential 41.2, Plt Count 170, MPV 8.4, Immature Gran % (Auto) 0.300, Neut % (Auto) 75.4 H, Lymph % (Auto) 12.0 L, [place] % (Auto) 10.0, Eos % (Auto) 1.8, Baso % (Auto) 0.5, Absolute Neuts (auto) 4.6, Absolute Lymphs (auto) 0.73 L, Total Counted Not Reportable 08/25/18 08:12: Sodium 140, Potassium 4.2, Chloride 108 H, Carbon Dioxide 26.0, Anion Gap 6, BUN 17, Creatinine 2.32 H, Estim Creat Clear Calc 29.48, Est GFR (MDRD) Af Amer 36 L, Est GFR (MDRD) Non-Af 30 L, BUN/Creatinine Ratio 7.3 L, Glucose 92, Calcium 7.8 L Current Medications Acetaminophen (Tylenol) 650 mg PO Q6H PRN PRN PRN Reason: Mild Pain (scale 0-3)/T>100.7 Last Admin: 08/25/18 11:18 Dose: 650 mg Al Hydroxide/Mg Hydroxide (Mylanta Ii) 30 ml PO Q6H PRN PRN PRN Reason: Gastric burning Amlodipine Besylate (Norvasc) 5 mg PO DAILY [facility] Last Admin: 08/25/18 11:17 Dose: 5 mg Famotidine (Pepcid) 20 mg PO BID [facility] Last Admin: 08/25/18 11:18 Dose: 20 mg Heparin Sodium (Porcine) (Heparin Na) 5,000 unit SC Q12 [facility] Last Admin: 08/25/18 11:18 Dose: 5,000 unit Sodium Chloride () 1,000 mls @ 150 mls/hr IV .Q6H40M [facility] Last Admin: 08/25/18 11:19 Dose: 150 mls/hr Ceftriaxone Sodium (Rocephin) 1 gm in 50 mls @ 100 mls/hr IV Q12 [facility] Last Admin: 08/25/18 11:18 Dose: 100 mls/hr Magnesium Hydroxide (Milk Of Magnesia) 30 ml PO DAILY PRN PRN PRN Reason: Constipation Last Admin: 08/25/18 11:17 Dose: 30 ml Morphine Sulfate () 2 - 4 mg IV Q3H PRN PRN PRN Reason: Severe Pain (pain scale 6-10) Last Admin: 08/25/18 08:44 Dose: 4 mg Ondansetron HCl (Zofran) 4 mg IV Q4H PRN PRN PRN Reason: NAUSEA Last Admin: 08/25/18 08:44 Dose: 4 mg Oxycodone HCl (Oxyir) 10 mg PO Q4H PRN PRN PRN Reason: Moderate Pain (pain scale 4-5) Promethazine HCl (Phenergan) 12.5 mg IV Q6H PRN PRN PRN Reason: NAUSEA/VOMITING Psyllium Hydrophilic Mucilloid (Metamucil) 1 packet PO DAILY PRN PRN PRN Reason: CONSTIPATION Senna/Docusate Sodium (Senokot-S, [place]-Colace) 2 tablet PO BID PRN PRN PRN Reason: Constipation Last Admin: 08/25/18 11:18 Dose: 2 tablet Sodium Chloride () 5 - 30 ml IV UD PRN PRN Reason: SALINE FLUSH Last Admin: 08/25/18 08:45 Dose: 20 ml Tamsulosin HCl (Flomax) 0.4 mg PO DAILY@1730 [facility] Last Admin: 08/24/18 16:43 Dose: 0.4 mg Throat Lozenges (Cepacol Sore Throat Lozenge) 2 lozenge MUCOUS MEM Q2H PRN PRN PRN Reason: sore throat Last Admin: 08/24/18 06:04 Dose: 2 lozenge Zolpidem Tartrate (Ambien (Generic)) 5 mg PO QHS PRN PRN PRN Reason: INSOMNIA Medical Necessity - Tobacco Use Smoking Status: Never smoker Assessment/Plan All Active Problems Left ureteral calculus (Acute) acute kidney injury (Acute) Left sided pyelonephritis (Acute) Hydronephrosis, left (Acute) 1. Left mid ureter calculus Still complains of mild left lower quadrant tenderness and abdominal bloatng has 4.4mm left ureteric calculus of proximal portion of left ureter with left perinephric stranding and hydroureter. on IVF, pain meds and tamsulosim urology on board; will likely need surgical intervention as he is unable to pass the stone on IV ceftriaxone for pyelonephritis 2. ?MARIA TERESA May be post renal from hydronephrosis. Also has nausea and vomiting so prerenal MARIA TERESA may play a role. CT abdomen showed left hydronephrosis and hydroureter. Currently being resuscitated with IV fluids. C CR is 2.32 today; was 2.41. Baseline kidney function is not known. will get nephrology consult We will continue to monitor. 3. Left pyelonephritis: CT abdomen showed left perinephric stranding and left periureteric stranding. on IV ceftriaxone. Has no leukocytosis. Will continue IV ceftriaxone for now until kidney stone is removed or passes. urine cultured E.coli. Blood culture is still pending 4. URTI due to rhinovirus infection: respiratory wound precautions. Supportive treatment. 5. Hypertension: BP remains in 140s systolic. Likely exacerbated by abdominal pain on PO amlodipine Will monitor blood pressure and adjust as needed. DVT prophylaxis: heparin GI prophylaxis: Famotidine Code Visit Inpatient E&M: [id number] [facility] H[facility] L3
--- NOTE | 2018-08-25 11:53 | PN_ITS ---
Patient Problems: Active and Suspected Problems Left ureteral calculus (Acute) acute kidney injury (Acute) Left sided pyelonephritis (Acute) Hydronephrosis, left (Acute) Subjective: Patient seen and examined. He still feels uncomfortable as he has not passed the stone as well as abdominal pain with assisted bloating. He denies fever or chills. He also feels nauseous but has not vomited yet. He denies any chest pain, SOB, abdominal pain, diarrhea or review of systems otherwise negative. Labs and vitals reviewed. Vitals/I&O's: Vital Signs Temp Pulse Resp BP Pulse Ox 98.5 F 58 L 18 149/80 H 98 08/25/18 11:24 08/25/18 11:24 08/25/18 11:24 08/25/18 11:24 08/25/18 11:24 Oxygen Delivery Method Room Air Weight: 201 lb 15.095 oz Body Mass Index (BMI) 30.7 Intake and Output for Last 24 Hours 08/23/18 08/24/18 08/25/18 23:59 23:59 23:59 Intake Total 3868 / 3868 2300 / 2300 Output Total 1825 / 1825 1550 / 1550 Balance 2043 / 2043 750 / 750 General: Alert, Oriented x3, Cooperative, No apparent distress HEENT: Atraumatic, PERRLA, EOMI, Normocephalic Oral: Moist Mucosa Neck: Supple, No JVD, Negative Carotid Bruits Lungs: Clear to auscultation, Normal air movement, No rhonchi, No wheeze, No rales Cardiovascular: Regular rate, Regular Rhythm, Normal S1, Normal S2, No murmurs Abdomen: Bowel Sounds Present, Soft, Non Tender, Non-Distended, No Hepato- splenomegaly Extremities: No clubbing, No cyanosis, No edema Skin: No rashes, No breakdown Musculoskeletal: No Tenderness to Palpation of Joints or Extremities Lymphatic: No Cervical, Supraclavicular, or Inguinal Adenopathy Neurological: Cranial nerves II-XII grossly intact, Neuro grossly intact, Motor Exam 5/5 strength throughout Psych/Mental Status: Normal Affect, Appropriate, Alert and oriented to time, place, person, mood and affect Microbiology Past 72 Hours 08/24/18 09:30 Sputum, Expectorated/Coughed Gram Stain - Final 08/24/18 09:30 Sputum, Expectorated/Coughed Respiratory Culture - Preliminary Appears to be normal respiratory rhina. Further studies to follow. 08/23/18 23:25 Urine, Clean Catch Urine Culture - Final Presumptive E. coli 08/24/18 10:25 Mucosa - Nasopharyngeal Respiratory Panel (PCR) - Final Rhinovirus 08/24/18 10:25 Mucosa - Nasopharyngeal Influenza Types A,B Direct FA (PRASANTH) - Final Laboratory Results 08/25/18 08:12: WBC 6.1, RBC 4.05 L, Hgb 12.4 L, Hct 36.0 L, MCV 88.9, MCH 30.6, MCHC 34.4, RDW 12.9, RDW Differential 41.2, Plt Count 170, MPV 8.4, Immature Gran % (Auto) 0.300, Neut % (Auto) 75.4 H, Lymph % (Auto) 12.0 L, [place] % (Auto) 10.0, Eos % (Auto) 1.8, Baso % (Auto) 0.5, Absolute Neuts (auto) 4.6, Absolute Lymphs (auto) 0.73 L, Total Counted Not Reportable 08/25/18 08:12: Sodium 140, Potassium 4.2, Chloride 108 H, Carbon Dioxide 26.0, Anion Gap 6, BUN 17, Creatinine 2.32 H, Estim Creat Clear Calc 29.48, Est GFR (MDRD) Af Amer 36 L, Est GFR (MDRD) Non-Af 30 L, BUN/Creatinine Ratio 7.3 L, Glucose 92, Calcium 7.8 L Current Medications Acetaminophen (Tylenol) 650 mg PO Q6H PRN PRN PRN Reason: Mild Pain (scale 0-3)/T>100.7 Last Admin: 08/25/18 11:18 Dose: 650 mg Al Hydroxide/Mg Hydroxide (Mylanta Ii) 30 ml PO Q6H PRN PRN PRN Reason: Gastric burning Amlodipine Besylate (Norvasc) 5 mg PO DAILY [facility] Last Admin: 08/25/18 11:17 Dose: 5 mg Famotidine (Pepcid) 20 mg PO BID [facility] Last Admin: 08/25/18 11:18 Dose: 20 mg Heparin Sodium (Porcine) (Heparin Na) 5,000 unit SC Q12 [facility] Last Admin: 08/25/18 11:18 Dose: 5,000 unit Sodium Chloride () 1,000 mls @ 150 mls/hr IV .Q6H40M [facility] Last Admin: 08/25/18 11:19 Dose: 150 mls/hr Ceftriaxone Sodium (Rocephin) 1 gm in 50 mls @ 100 mls/hr IV Q12 [facility] Last Admin: 08/25/18 11:18 Dose: 100 mls/hr Magnesium Hydroxide (Milk Of Magnesia) 30 ml PO DAILY PRN PRN PRN Reason: Constipation Last Admin: 08/25/18 11:17 Dose: 30 ml Morphine Sulfate () 2 - 4 mg IV Q3H PRN PRN PRN Reason: Severe Pain (pain scale 6-10) Last Admin: 08/25/18 08:44 Dose: 4 mg Ondansetron HCl (Zofran) 4 mg IV Q4H PRN PRN PRN Reason: NAUSEA Last Admin: 08/25/18 08:44 Dose: 4 mg Oxycodone HCl (Oxyir) 10 mg PO Q4H PRN PRN PRN Reason: Moderate Pain (pain scale 4-5) Promethazine HCl (Phenergan) 12.5 mg IV Q6H PRN PRN PRN Reason: NAUSEA/VOMITING Psyllium Hydrophilic Mucilloid (Metamucil) 1 packet PO DAILY PRN PRN PRN Reason: CONSTIPATION Senna/Docusate Sodium (Senokot-S, [place]-Colace) 2 tablet PO BID PRN PRN PRN Reason: Constipation Last Admin: 08/25/18 11:18 Dose: 2 tablet Sodium Chloride () 5 - 30 ml IV UD PRN PRN Reason: SALINE FLUSH Last Admin: 08/25/18 08:45 Dose: 20 ml Tamsulosin HCl (Flomax) 0.4 mg PO DAILY@1730 [facility] Last Admin: 08/24/18 16:43 Dose: 0.4 mg Throat Lozenges (Cepacol Sore Throat Lozenge) 2 lozenge MUCOUS MEM Q2H PRN PRN PRN Reason: sore throat Last Admin: 08/24/18 06:04 Dose: 2 lozenge Zolpidem Tartrate (Ambien (Generic)) 5 mg PO QHS PRN PRN PRN Reason: INSOMNIA Medical Necessity - Tobacco Use Smoking Status: Never smoker Assessment/Plan All Active Problems Left ureteral calculus (Acute) acute kidney injury (Acute) Left sided pyelonephritis (Acute) Hydronephrosis, left (Acute) 1. Left mid ureter calculus * Still complains of mild left lower quadrant tenderness and abdominal bloatng * has 4.4mm left ureteric calculus of proximal portion of left ureter with left perinephric stranding and hydroureter. * on IVF, pain meds and tamsulosim * urology on board; will likely need surgical intervention as he is unable to pass the stone * on IV ceftriaxone for pyelonephritis * 2. ?MARIA TERESA * May be post renal from hydronephrosis. Also has nausea and vomiting so prerenal MARIA TERESA may play a role. * CT abdomen showed left hydronephrosis and hydroureter. Currently being resuscitated with IV fluids. C * CR is 2.32 today; was 2.41. Baseline kidney function is not known. * will get nephrology consult * We will continue to monitor. 3. Left pyelonephritis: * CT abdomen showed left perinephric stranding and left periureteric stranding. * on IV ceftriaxone. * Has no leukocytosis. Will continue IV ceftriaxone for now until kidney stone is removed or passes. * urine cultured E.coli. Blood culture is still pending * 4. URTI due to rhinovirus infection: respiratory wound precautions. Supportive treatment. 5. Hypertension: * BP remains in 140s systolic. Likely exacerbated by abdominal pain * on PO amlodipine * Will monitor blood pressure and adjust as needed. * DVT prophylaxis: heparin GI prophylaxis: Famotidine Code Visit Inpatient E&M: [id number] [facility] Hosp L3
[2018-08-25 14:41] VITALS: BP 158/76; PULSE 56; RESP 18; TEMP 36.8; O2SAT 98
[2018-08-25] MEDS: Tamsulosin HCl 0.4 MG Capsule PO (18:05)
[2018-08-25] MEDS: oxyCODONE 5 MG Tablet 10 MG PO (18:53)
[2018-08-25 20:40] VITALS: BP 163/79; PULSE 59; RESP 16; TEMP 37.2; O2SAT 96
[2018-08-26] MEDS: 0.9% Normal Saline 1,000 ML 150 ML IV ×3 (01:25→21:22)
[2018-08-26 02:23] VITALS: BP 147/74; PULSE 56; RESP 16; TEMP 37.2; O2SAT 95
[2018-08-26] MEDS: oxyCODONE 5 MG Tablet 10 MG PO ×2 (04:44→21:19)
[2018-08-26 06:59] LABS: Absolute Lymphocyte Count 0.52 X10^3/ul (0.83-4.51); Absolute Neutrophil Count 4.6 X10^3/uL (2.0-7.7); Basophil# 0.02 X10^3/uL; Basophil% 0.3 % (0-1); Eosinophil# 0.14 X10^3/uL; Eosinophils% 2.4 % (0-5); Hemoglobin 11.4 g/dl (13.0-16.5); Lymphocyte # 0.52 X10^3/ul (4.0); Mean Corp Hgb Conc 33.5 g/gl (32-36); Mean Corpuscular Hgb 29.8 pg (27.0-32.0); Mean Platelet Vol. 8.1 fl (6.2-12.0); Monocyte# 0.49 X10^3/uL; Monocyte% 8.4 % (0-10); Neutrophil # 4.62 X10^3/uL (2.7-7.7); Neutrophil % 79.7 % (47-70); Platelet Count 147 K/mm3 (150-450); RBC Distribution Width SD 42.4 fl (35.1-43.9); Red Blood Count 3.82 M/mm3 (4.6-6.2); White Blood Count 5.8 K/mm3 (4.4-11.0)
[2018-08-26 07:00] LABS: Differential Indicated SCAN CRITERIA MET; POSITIVE COUNT NO; POSITIVE DIFFERENTIAL YES; POSITIVE MORPHOLOGY NO
[2018-08-26 07:14] LABS: Anion Gap 7 (5-15); BUN 14 mg/dL (7-18); BUN/Creat Ratio 6.6 RATIO (10-20); Calcium,Total 7.7 mg/dL (8.5-10.1); Chloride 108 mmol/L (98-107); Creatinine, Serum 2.11 mg/dL (0.70-1.30); EST Glomerular Filtration Rate 33 mL/min (>60); Est Glom Filt Rate - Afr Amer 40 mL/min (>60); Estimated Creatinine Clearance 32.42 ml/min; Glucose 93 mg/dL (74-106); Potassium 4.5 mmol/L (3.5-5.1); Sodium Level 141 mmol/L (136-145)
[2018-08-26 09:44] VITALS: BP 153/79; PULSE 57; RESP 18; TEMP 36.9; O2SAT 97
[2018-08-26] MEDS: Senna/Docusate Sodium 1 Tablet 2 TABLET PO (09:45)
[2018-08-26] MEDS: Famotidine 20 MG Tablet PO ×2 (09:45→20:47)
[2018-08-26] MEDS: Acetaminophen 325 MG Tablet 650 MG PO (09:45)
[2018-08-26] MEDS: amLODIPine 5 MG Tablet PO ×2 (09:45→13:36)
[2018-08-26] MEDS: 0.9% NaCl Peripheral Flush Adult/Peds IV ×2 (09:46→12:39)
[2018-08-26] MEDS: Magnesium Hydroxide 30 ML UDC PO (09:46)
[2018-08-26] MEDS: Mag Hydrox/Al Hydrox/Simeth 30 ML UDC PO (09:46)
[2018-08-26] MEDS: Heparin Injection (Vial) 5,000 UNIT/ML VIAL 5000 UNIT SC ×2 (09:50→20:47)
--- NOTE | 2018-08-26 10:26 | PCM.PN.HOSP ---
Patient Problems: Active and Suspected Problems Left ureteral calculus (Acute) acute kidney injury (Acute) Left sided pyelonephritis (Acute) Hydronephrosis, left (Acute) Subjective: Patient seen and examined. He had a good night and abdominal pain is much better. He denies any fever chills, cough or chest pain, shortness of breath, abdominal pain, diarrhea vomiting. Review of systems otherwise negative. Labs and vitals reviewed. Vitals/I&O's: Vital Signs Temp Pulse Resp BP Pulse Ox 98.4 F 57 L 18 153/79 H 97 08/26/18 09:44 08/26/18 09:44 08/26/18 09:44 08/26/18 09:44 08/26/18 09:44 Oxygen Delivery Method Room Air Weight: 201 lb 15.095 oz Body Mass Index (BMI) 30.7 Intake and Output for Last 24 Hours 08/24/18 08/25/18 08/26/18 23:59 23:59 23:59 Intake Total 3868 / 3868 3836 / 3836 800 / 800 Output Total 1825 / 1825 4050 / 4050 Balance 2043 / 2043 -214 / -214 800 / 800 General: Alert, Oriented x3, Cooperative, No apparent distress HEENT: Atraumatic, PERRLA, EOMI, Normocephalic Oral: Moist Mucosa Neck: Supple, No JVD, Negative Carotid Bruits Lungs: Clear to auscultation, Normal air movement, No rhonchi, No wheeze, No rales Cardiovascular: Regular rate, Regular Rhythm, Normal S1, Normal S2, No murmurs Abdomen: Bowel Sounds Present, Soft, Non Tender, Non-Distended, No Hepato-splenomegaly Extremities: No clubbing, No cyanosis, No edema Skin: No rashes, No breakdown Musculoskeletal: No Tenderness to Palpation of Joints or Extremities Lymphatic: No Cervical, Supraclavicular, or Inguinal Adenopathy Neurological: Cranial nerves II-XII grossly intact, Neuro grossly intact, Motor Exam 5/5 strength throughout Psych/Mental Status: Normal Affect, Appropriate, Alert and oriented to time, place, person, mood and affect Microbiology Past 72 Hours 08/24/18 09:30 Sputum, Expectorated/Coughed Gram Stain - Final 08/24/18 09:30 Sputum, Expectorated/Coughed Respiratory Culture - Final Mixed normal respiratory rhina. No Haemophilus, Streptococcus pneumoniae, beta-hemolytic Streptococcus or Staphylococcus aureus isolated. 08/23/18 23:25 Urine, Clean Catch Urine Culture - Final Presumptive E. coli 08/24/18 10:25 Mucosa - Nasopharyngeal Respiratory Panel (PCR) - Final Rhinovirus 08/24/18 10:25 Mucosa - Nasopharyngeal Influenza Types A,B Direct FA (PRASANTH) - Final Laboratory Results 08/26/18 06:16: WBC 5.8, RBC 3.82 L, Hgb 11.4 L, Hct 34.0 L, MCV 89.0, MCH 29.8, MCHC 33.5, RDW 13.0, RDW Differential 42.4, Plt Count 147 L, MPV 8.1, Immature Gran % (Auto) 0.200, Neut % (Auto) 79.7 H, Lymph % (Auto) 9.0 L, [place] % (Auto) 8.4, Eos % (Auto) 2.4, Baso % (Auto) 0.3, Absolute Neuts (auto) 4.6, Absolute Lymphs (auto) 0.52 L, Total Counted Not Reportable, Differential Comment 08/26/18 06:16: Sodium 141, Potassium 4.5, Chloride 108 H, Carbon Dioxide 26.0, Anion Gap 7, BUN 14, Creatinine 2.11 H, Estim Creat Clear Calc 32.42, Est GFR (MDRD) Af Amer 40 L, Est GFR (MDRD) Non-Af 33 L, BUN/Creatinine Ratio 6.6 L, Glucose 93, Calcium 7.7 L Current Medications Acetaminophen (Tylenol) 650 mg PO Q6H PRN PRN PRN Reason: Mild Pain (scale 0-3)/T>100.7 Last Admin: 08/26/18 09:45 Dose: 650 mg Al Hydroxide/Mg Hydroxide (Mylanta Ii) 30 ml PO Q6H PRN PRN PRN Reason: Gastric burning Last Admin: 08/26/18 09:46 Dose: 30 ml Amlodipine Besylate (Norvasc) 5 mg PO DAILY [facility] Last Admin: 08/26/18 09:45 Dose: 5 mg Famotidine (Pepcid) 20 mg PO BID [facility] Last Admin: 08/26/18 09:45 Dose: 20 mg Heparin Sodium (Porcine) (Heparin Na) 5,000 unit SC Q12 [facility] Last Admin: 08/26/18 09:50 Dose: 5,000 unit Sodium Chloride () 1,000 mls @ 150 mls/hr IV .Q6H40M [facility] Last Admin: 08/26/18 09:47 Dose: 150 mls/hr Ceftriaxone Sodium (Rocephin) 1 gm in 50 mls @ 100 mls/hr IV Q12 [facility] Last Admin: 08/25/18 21:22 Dose: 100 mls/hr Magnesium Hydroxide (Milk Of Magnesia) 30 ml PO DAILY PRN PRN PRN Reason: Constipation Last Admin: 08/26/18 09:46 Dose: 30 ml Morphine Sulfate () 2 - 4 mg IV Q3H PRN PRN PRN Reason: Severe Pain (pain scale 6-10) Last Admin: 08/25/18 08:44 Dose: 4 mg Ondansetron HCl (Zofran) 4 mg IV Q4H PRN PRN PRN Reason: NAUSEA Last Admin: 08/25/18 08:44 Dose: 4 mg Oxycodone HCl (Oxyir) 10 mg PO Q4H PRN PRN PRN Reason: Moderate Pain (pain scale 4-5) Last Admin: 08/26/18 04:44 Dose: 10 mg Promethazine HCl (Phenergan) 12.5 mg IV Q6H PRN PRN PRN Reason: NAUSEA/VOMITING Psyllium Hydrophilic Mucilloid (Metamucil) 1 packet PO DAILY PRN PRN PRN Reason: CONSTIPATION Senna/Docusate Sodium (Senokot-S, [place]-Colace) 2 tablet PO BID PRN PRN PRN Reason: Constipation Last Admin: 08/26/18 09:45 Dose: 2 tablet Sodium Chloride () 5 - 30 ml IV UD PRN PRN Reason: SALINE FLUSH Last Admin: 08/26/18 09:46 Dose: 10 ml Tamsulosin HCl (Flomax) 0.4 mg PO DAILY@1730 [facility] Last Admin: 08/25/18 18:05 Dose: 0.4 mg Throat Lozenges (Cepacol Sore Throat Lozenge) 2 lozenge MUCOUS MEM Q2H PRN PRN PRN Reason: sore throat Last Admin: 08/24/18 06:04 Dose: 2 lozenge Zolpidem Tartrate (Ambien (Generic)) 5 mg PO QHS PRN PRN PRN Reason: INSOMNIA Medical Necessity - Tobacco Use Smoking Status: Never smoker Assessment/Plan All Active Problems Left ureteral calculus (Acute) acute kidney injury (Acute) Left sided pyelonephritis (Acute) Hydronephrosis, left (Acute) 1. Left mid ureteric calculus abdominal pain is better still hasnt passed stone on IV morphine, tamsulosin and IVF has 4.4mm left ureteric calculus of proximal portion of left ureter with left perinephric stranding and hydroureter. on IVF, pain meds and tamsulosim urology on board; to be scheduled for surgery tomorrow since he still has not passed stone. Keep n.p.o. past midnight on IV ceftriaxone for pyelonephritis keep NPO past midnight 2. ?MARIA TERESA May be post renal from hydronephrosis. he denies any history of CKD; no baseline in [facility] CT abdomen showed left hydronephrosis and hydroureter. Creatinine is down to 2.11 from about 2.4 on admission. Baseline not known. We will continue to monitor. to follow up with nephrology on outpatient basis. Continue gentle hydration with IV fluids. 3. Left pyelonephritis: CT abdomen showed left perinephric stranding and left periureteric stranding. on IV ceftriaxone. Will continue IV ceftriaxone for now, as he is due to have surgery tomorrow to remove stone. urine cultured E.coli. Blood cultures are negative. 4. URTI due to rhinovirus infection: respiratory panel isolated Rhinovirus/ respiratory precautions. Supportive treatment. 5. Hypertension: BP remains in 140s systolic. Likely exacerbated by abdominal pain on PO amlodipine; will increase to 10mg daily Will monitor blood pressure and adjust as needed. DVT prophylaxis: heparin GI prophylaxis: Famotidine Code Visit Inpatient E&M: 10844 Subs Hosp L3
--- NOTE | 2018-08-26 10:30 | PN_ITS ---
Patient Problems: Active and Suspected Problems Left ureteral calculus (Acute) acute kidney injury (Acute) Left sided pyelonephritis (Acute) Hydronephrosis, left (Acute) Subjective: Patient seen and examined. He had a good night and abdominal pain is much better. He denies any fever chills, cough or chest pain, shortness of breath, abdominal pain, diarrhea vomiting. Review of systems otherwise negative. Labs and vitals reviewed. Vitals/I&O's: Vital Signs Temp Pulse Resp BP Pulse Ox 98.4 F 57 L 18 153/79 H 97 08/26/18 09:44 08/26/18 09:44 08/26/18 09:44 08/26/18 09:44 08/26/18 09:44 Oxygen Delivery Method Room Air Weight: 201 lb 15.095 oz Body Mass Index (BMI) 30.7 Intake and Output for Last 24 Hours 08/24/18 08/25/18 08/26/18 23:59 23:59 23:59 Intake Total 3868 / 3868 3836 / 3836 800 / 800 Output Total 1825 / 1825 4050 / 4050 Balance 2043 / 2043 -214 / -214 800 / 800 General: Alert, Oriented x3, Cooperative, No apparent distress HEENT: Atraumatic, PERRLA, EOMI, Normocephalic Oral: Moist Mucosa Neck: Supple, No JVD, Negative Carotid Bruits Lungs: Clear to auscultation, Normal air movement, No rhonchi, No wheeze, No rales Cardiovascular: Regular rate, Regular Rhythm, Normal S1, Normal S2, No murmurs Abdomen: Bowel Sounds Present, Soft, Non Tender, Non-Distended, No Hepato- splenomegaly Extremities: No clubbing, No cyanosis, No edema Skin: No rashes, No breakdown Musculoskeletal: No Tenderness to Palpation of Joints or Extremities Lymphatic: No Cervical, Supraclavicular, or Inguinal Adenopathy Neurological: Cranial nerves II-XII grossly intact, Neuro grossly intact, Motor Exam 5/5 strength throughout Psych/Mental Status: Normal Affect, Appropriate, Alert and oriented to time, place, person, mood and affect Microbiology Past 72 Hours 08/24/18 09:30 Sputum, Expectorated/Coughed Gram Stain - Final 08/24/18 09:30 Sputum, Expectorated/Coughed Respiratory Culture - Final Mixed normal respiratory rhina. No Haemophilus, Streptococcus pneumoniae, beta-hemolytic Streptococcus or Staphylococcus aureus isolated. 08/23/18 23:25 Urine, Clean Catch Urine Culture - Final Presumptive E. coli 08/24/18 10:25 Mucosa - Nasopharyngeal Respiratory Panel (PCR) - Final Rhinovirus 08/24/18 10:25 Mucosa - Nasopharyngeal Influenza Types A,B Direct FA (PRASANTH) - Final Laboratory Results 08/26/18 06:16: WBC 5.8, RBC 3.82 L, Hgb 11.4 L, Hct 34.0 L, MCV 89.0, MCH 29.8, MCHC 33.5, RDW 13.0, RDW Differential 42.4, Plt Count 147 L, MPV 8.1, Immature Gran % (Auto) 0.200, Neut % (Auto) 79.7 H, Lymph % (Auto) 9.0 L, [place] % (Auto) 8.4, Eos % (Auto) 2.4, Baso % (Auto) 0.3, Absolute Neuts (auto) 4.6, Absolute Lymphs (auto) 0.52 L, Total Counted Not Reportable, Differential Comment 08/26/18 06:16: Sodium 141, Potassium 4.5, Chloride 108 H, Carbon Dioxide 26.0, Anion Gap 7, BUN 14, Creatinine 2.11 H, Estim Creat Clear Calc 32.42, Est GFR (MDRD) Af Amer 40 L, Est GFR (MDRD) Non-Af 33 L, BUN/Creatinine Ratio 6.6 L, Glucose 93, Calcium 7.7 L Current Medications Acetaminophen (Tylenol) 650 mg PO Q6H PRN PRN PRN Reason: Mild Pain (scale 0-3)/T>100.7 Last Admin: 08/26/18 09:45 Dose: 650 mg Al Hydroxide/Mg Hydroxide (Mylanta Ii) 30 ml PO Q6H PRN PRN PRN Reason: Gastric burning Last Admin: 08/26/18 09:46 Dose: 30 ml Amlodipine Besylate (Norvasc) 5 mg PO DAILY [facility] Last Admin: 08/26/18 09:45 Dose: 5 mg Famotidine (Pepcid) 20 mg PO BID [facility] Last Admin: 08/26/18 09:45 Dose: 20 mg Heparin Sodium (Porcine) (Heparin Na) 5,000 unit SC Q12 [facility] Last Admin: 08/26/18 09:50 Dose: 5,000 unit Sodium Chloride () 1,000 mls @ 150 mls/hr IV .Q6H40M [facility] Last Admin: 08/26/18 09:47 Dose: 150 mls/hr Ceftriaxone Sodium (Rocephin) 1 gm in 50 mls @ 100 mls/hr IV Q12 [facility] Last Admin: 08/25/18 21:22 Dose: 100 mls/hr Magnesium Hydroxide (Milk Of Magnesia) 30 ml PO DAILY PRN PRN PRN Reason: Constipation Last Admin: 08/26/18 09:46 Dose: 30 ml Morphine Sulfate () 2 - 4 mg IV Q3H PRN PRN PRN Reason: Severe Pain (pain scale 6-10) Last Admin: 08/25/18 08:44 Dose: 4 mg Ondansetron HCl (Zofran) 4 mg IV Q4H PRN PRN PRN Reason: NAUSEA Last Admin: 08/25/18 08:44 Dose: 4 mg Oxycodone HCl (Oxyir) 10 mg PO Q4H PRN PRN PRN Reason: Moderate Pain (pain scale 4-5) Last Admin: 08/26/18 04:44 Dose: 10 mg Promethazine HCl (Phenergan) 12.5 mg IV Q6H PRN PRN PRN Reason: NAUSEA/VOMITING Psyllium Hydrophilic Mucilloid (Metamucil) 1 packet PO DAILY PRN PRN PRN Reason: CONSTIPATION Senna/Docusate Sodium (Senokot-S, [place]-Colace) 2 tablet PO BID PRN PRN PRN Reason: Constipation Last Admin: 08/26/18 09:45 Dose: 2 tablet Sodium Chloride () 5 - 30 ml IV UD PRN PRN Reason: SALINE FLUSH Last Admin: 08/26/18 09:46 Dose: 10 ml Tamsulosin HCl (Flomax) 0.4 mg PO DAILY@1730 [facility] Last Admin: 08/25/18 18:05 Dose: 0.4 mg Throat Lozenges (Cepacol Sore Throat Lozenge) 2 lozenge MUCOUS MEM Q2H PRN PRN PRN Reason: sore throat Last Admin: 08/24/18 06:04 Dose: 2 lozenge Zolpidem Tartrate (Ambien (Generic)) 5 mg PO QHS PRN PRN PRN Reason: INSOMNIA Medical Necessity - Tobacco Use Smoking Status: Never smoker Assessment/Plan All Active Problems Left ureteral calculus (Acute) acute kidney injury (Acute) Left sided pyelonephritis (Acute) Hydronephrosis, left (Acute) 1. Left mid ureteric calculus * abdominal pain is better * still hasnt passed stone * on IV morphine, tamsulosin and IVF * has 4.4mm left ureteric calculus of proximal portion of left ureter with left perinephric stranding and hydroureter. * on IVF, pain meds and tamsulosim * urology on board; to be scheduled for surgery tomorrow since he still has not passed stone. * Keep n.p.o. past midnight * on IV ceftriaxone for pyelonephritis * keep NPO past midnight 2. ?MARIA TERESA * May be post renal from hydronephrosis. * he denies any history of CKD; no baseline in [facility] * CT abdomen showed left hydronephrosis and hydroureter. * Creatinine is down to 2.11 from about 2.4 on admission. Baseline not known. * We will continue to monitor. * to follow up with nephrology on outpatient basis. * Continue gentle hydration with IV fluids. 3. Left pyelonephritis: * CT abdomen showed left perinephric stranding and left periureteric stranding. * on IV ceftriaxone. * Will continue IV ceftriaxone for now, as he is due to have surgery tomorrow to remove stone. * urine cultured E.coli. Blood cultures are negative. * 4. URTI due to rhinovirus infection: respiratory panel isolated Rhinovirus/ respiratory precautions. Supportive treatment. 5. Hypertension: * BP remains in 140s systolic. Likely exacerbated by abdominal pain * on PO amlodipine; will increase to 10mg daily * Will monitor blood pressure and adjust as needed. * DVT prophylaxis: heparin GI prophylaxis: Famotidine Code Visit Inpatient E&M: 58302 [facility] Hosp L3
[2018-08-26 12:37] VITALS: BP 140/74; PULSE 57
[2018-08-26] MEDS: Ceftriaxone 1 GM/50 ML BAG IV ×2 (12:39→20:47)
[2018-08-26] MEDS: Ondansetron 4 MG/2 ML Vial IV (12:39)
[2018-08-26 15:11] VITALS: BP 148/81; PULSE 59; RESP 18; TEMP 36.6; O2SAT 95
[2018-08-26] MEDS: Morphine 2 MG/ML Syringe IV ×2 (15:12→22:17)
--- NOTE | 2018-08-26 17:00 | RAD_ITS ---
STUDY: X-RAY - ABDOMEN/PELVIS REASON FOR EXAM: Male, 67 years old. Abdominal pain, bloating constipation. TECHNIQUE: Supine and erect views of the abdomen. COMPARISON: CT abdomen pelvis 08/23/2018. FINDINGS: Normal visualized lung bases. There is no free air beneath the diaphragm. There is a nonobstructive bowel gas pattern. Stool burden is moderate. Multiple fluid levels in the small and large bowel on the upright view are nonspecific. This may indicate enterocolitis. There is no organomegaly. No abnormal calcifications. Ureteral stone identified on the prior CT scan is not seen on the current study. Soft tissues and bony structures are unremarkable. RAD/Abd Inc Decub and/or Erect IMPRESSION: Fluid levels in nondilated bowel is nonspecific but may indicate enterocolitis. Moderate stool burden. No evidence of renal stone. Electronically Signed: Peggy Monte MD at 18:05 EST Tel , Service support ,
[2018-08-26] MEDS: Bisacodyl 10 MG Suppository RECTAL (20:47)
[2018-08-26 21:00] VITALS: BP 180/88; PULSE 63; RESP 16; TEMP 37; O2SAT 96
[2018-08-26] MEDS: amLODIPine 10 MG Tablet PO (21:18)
[2018-08-26] MEDS: proMETHazine 25 MG/ML Syringe 12.5 MG IV (22:13)
[2018-08-27] VITALS (8 sets, daily range): BP systolic 141–169; BP diastolic 73–93; PULSE 60–72; RESP 16–18; TEMP 36.5–37.1; O2SAT 92–96; BMI 30.7
--- NOTE | 2018-08-27 | CALC_PTH ---
PATIENT: YU RECINOS LOC: MS3 U#:[id number] AGE/SX: 67/M ROOM: WV320 RE08/23/[address]: Dr. Tess Vidal MD : 1950 BED: 1 DIS: 08/27/2018 SPEC #: [id number] RECD: 08/27/18 15:10 STATUS: DEBORAH REChano #: [id number] YAGN: 08/27/18 00:[address]: Tess Vidal DEPT: SURGICAL PATHOLOGY RECD BY: Luis Miguel Adkins ENTERED: 08/27/18 15:10 SP TYPE: Calculi OTHR DR: MD Dr. Pineda Carpio MD No Primary Care Phys Tissues: CALCULI Procedures: Surgery Specimen Level I HEADER OPERATION: Ureteroscopy, basket ext, stent, laser retrogrades PRE-OP DIAGNOSIS: Left ureteral stone TISSUE SUBMITTED: Calculi GROSS DIAGNOSIS A fragment of stone, clinically left ureteral stone, submitted entirely for analysis. WILDER:chilango 08/27/18 COMMENT The calculus is submitted in its entirety for chemical stone analysis. The results from this study will be reported separately. GROSS DESCRIPTION Received without fixative labeled with the patient name and designated stone for analysis. Received is a one fragment of a light than calculus measuring 0.2 x 0.2 x 0.1 cm. The entire specimen is submitted for stone chemical analysis. WILDER:chilango 08/27/18 CPT: 30126
[2018-08-27] MEDS: 0.9% Normal Saline 1,000 ML 150 ML IV ×2 (04:44→14:41)
[2018-08-27 05:56] LABS: Absolute Lymphocyte Count 0.65 X10^3/ul (0.83-4.51); Absolute Neutrophil Count 3.9 X10^3/uL (2.0-7.7); Basophil# 0.01 X10^3/uL; Basophil% 0.2 % (0-1); Eosinophil# 0.13 X10^3/uL; Eosinophils% 2.5 % (0-5); Hematocrit 34.2 % (40-54); Hemoglobin 11.7 g/dl (13.0-16.5); Lymphocyte # 0.65 X10^3/ul (4.0); Lymphocyte % 12.5 % (19-41); Mean Corp Hgb Conc 34.2 g/gl (32-36); Mean Corpuscular Hgb 30.5 pg (27.0-32.0); Mean Corpuscular Volume 89.1 fL (80-94); Monocyte# 0.48 X10^3/uL; Monocyte% 9.2 % (0-10); Neutrophil # 3.91 X10^3/uL (2.7-7.7); Neutrophil % 75.4 % (47-70); Platelet Count 186 K/mm3 (150-450); RBC Distribution Width CV 12.6 % (11.6-14.6); RBC Distribution Width SD 40.4 fl (35.1-43.9); Red Blood Count 3.84 M/mm3 (4.6-6.2); White Blood Count 5.2 K/mm3 (4.4-11.0)
[2018-08-27 06:05] LABS: POSITIVE COUNT NO; POSITIVE DIFFERENTIAL NO; POSITIVE MORPHOLOGY NO
[2018-08-27 06:13] LABS: Anion Gap 8 (5-15); BUN 14 mg/dL (7-18); BUN/Creat Ratio 6.6 RATIO (10-20); Calcium,Total 8.2 mg/dL (8.5-10.1); Chloride 104 mmol/L (98-107); Creatinine, Serum 2.12 mg/dL (0.70-1.30); EST Glomerular Filtration Rate 33 mL/min (>60); Est Glom Filt Rate - Afr Amer 40 mL/min (>60); Estimated Creatinine Clearance 32.26 ml/min; Glucose 93 mg/dL (74-106); Potassium 4.5 mmol/L (3.5-5.1); Sodium Level 140 mmol/L (136-145)
[2018-08-27] MEDS: Ceftriaxone 1 GM/50 ML BAG IV (09:50)
--- NOTE | 2018-08-27 10:03 | NURSING ---
REPORT CALLED TO [facility]-
[2018-08-27] MEDS: Famotidine 20 MG Tablet PO (10:07)
[2018-08-27] MEDS: amLODIPine 10 MG Tablet PO (10:10)
--- NOTE | 2018-08-27 10:34 | PCM.PN.HOSP ---
Patient Problems: Active and Suspected Problems Left ureteral calculus (Acute) acute kidney injury (Acute) Left sided pyelonephritis (Acute) Hydronephrosis, left (Acute) Subjective: Patient seen and examined. He was very comfortable and had a good night's rest. He denies any fever or chills, cough or chest pain, any shortness of breath, abdominal pain, any diarrhea vomiting. 12 point review of systems otherwise negative. Labs and vitals reviewed. Vitals/I&O's: Vital Signs Temp Pulse Resp BP Pulse Ox 98.8 F 70 18 163/81 H 96 08/27/18 09:52 08/27/18 09:52 08/27/18 09:52 08/27/18 09:52 08/27/18 09:52 Oxygen Delivery Method Room Air Weight: 201 lb 15.095 oz Body Mass Index (BMI) 30.7 Intake and Output for Last 24 Hours 08/25/18 08/26/18 08/27/18 23:59 23:59 23:59 Intake Total 3836 / 3836 4230 / 4230 Output Total 4050 / 4050 3475 / 3475 600 / 600 Balance -214 / -214 755 / 755 -600 / -600 General: Alert, Oriented x3, Cooperative, No apparent distress HEENT: Atraumatic, PERRLA, EOMI, Normocephalic Oral: Moist Mucosa Neck: Supple, No JVD, Negative Carotid Bruits Lungs: Clear to auscultation, Normal air movement, No rhonchi, No wheeze, No rales Cardiovascular: Regular rate, Regular Rhythm, Normal S1, Normal S2, No murmurs Abdomen: Bowel Sounds Present, Soft, Non Tender, Non-Distended, No Hepato-splenomegaly Extremities: No clubbing, No cyanosis, No edema Skin: No rashes, No breakdown Musculoskeletal: No Tenderness to Palpation of Joints or Extremities Lymphatic: No Cervical, Supraclavicular, or Inguinal Adenopathy Neurological: Cranial nerves II-XII grossly intact, Neuro grossly intact, Motor Exam 5/5 strength throughout Psych/Mental Status: Normal Affect, Appropriate, Alert and oriented to time, place, person, mood and affect Microbiology Past 72 Hours 08/24/18 01:10 Blood Culture (Wb) - Right Forearm Blood Culture - Preliminary No growth in 48 hours. 08/23/18 22:56 Blood Culture (Wb) - Anticubital Right Blood Culture - Preliminary No growth in 48 hours. 08/24/18 09:30 Sputum, Expectorated/Coughed Gram Stain - Final 08/24/18 09:30 Sputum, Expectorated/Coughed Respiratory Culture - Final Mixed normal respiratory rhina. No Haemophilus, Streptococcus pneumoniae, beta-hemolytic Streptococcus or Staphylococcus aureus isolated. 08/23/18 23:25 Urine, Clean Catch Urine Culture - Final Presumptive E. coli 08/24/18 10:25 Mucosa - Nasopharyngeal Respiratory Panel (PCR) - Final Rhinovirus 08/24/18 10:25 Mucosa - Nasopharyngeal Influenza Types A,B Direct FA (PRASANTH) - Final Laboratory Results 08/27/18 05:25: WBC 5.2, RBC 3.84 L, Hgb 11.7 L, Hct 34.2 L, MCV 89.1, MCH 30.5, MCHC 34.2, RDW 12.6, RDW Differential 40.4, Plt Count 186, MPV 8.0, Immature Gran % (Auto) 0.200, Neut % (Auto) 75.4 H, Lymph % (Auto) 12.5 L, [place] % (Auto) 9.2, Eos % (Auto) 2.5, Baso % (Auto) 0.2, Absolute Neuts (auto) 3.9, Absolute Lymphs (auto) 0.65 L, Total Counted Not Reportable 08/27/18 05:25: Sodium 140, Potassium 4.5, Chloride 104, Carbon Dioxide 28.0, Anion Gap 8, BUN 14, Creatinine 2.12 H, Estim Creat Clear Calc 32.26, Est GFR (MDRD) Af Amer 40 L, Est GFR (MDRD) Non-Af 33 L, BUN/Creatinine Ratio 6.6 L, Glucose 93, Calcium 8.2 L Current Medications Acetaminophen (Tylenol) 650 mg PO Q6H PRN PRN PRN Reason: Mild Pain (scale 0-3)/T>100.7 Last Admin: 08/26/18 09:45 Dose: 650 mg Al Hydroxide/Mg Hydroxide (Mylanta Ii) 30 ml PO Q6H PRN PRN PRN Reason: Gastric burning Last Admin: 08/26/18 09:46 Dose: 30 ml Amlodipine Besylate (Norvasc) 10 mg PO DAILY [facility] Last Admin: 08/27/18 10:10 Dose: 10 mg Famotidine (Pepcid) 20 mg PO BID [facility] Last Admin: 08/27/18 10:07 Dose: 20 mg Heparin Sodium (Porcine) (Heparin Na) 5,000 unit SC Q12 [facility] Last Admin: 08/27/18 07:59 Dose: Not Given Hydrochlorothiazide (Hydrochlorothiazide) 12.5 mg PO DAILY [facility] Sodium Chloride () 1,000 mls @ 150 mls/hr IV .Q6H40M [facility] Last Admin: 08/27/18 04:44 Dose: 150 mls/hr Ceftriaxone Sodium (Rocephin) 1 gm in 50 mls @ 100 mls/hr IV Q12 [facility] Last Admin: 08/27/18 09:50 Dose: 100 mls/hr Magnesium Hydroxide (Milk Of Magnesia) 30 ml PO DAILY PRN PRN PRN Reason: Constipation Last Admin: 08/26/18 09:46 Dose: 30 ml Morphine Sulfate () 2 - 4 mg IV Q3H PRN PRN PRN Reason: Severe Pain (pain scale 6-10) Last Admin: 08/26/18 22:17 Dose: 4 mg Ondansetron HCl (Zofran) 4 mg IV Q4H PRN PRN PRN Reason: NAUSEA Last Admin: 08/26/18 12:39 Dose: 4 mg Oxycodone HCl (Oxyir) 10 mg PO Q4H PRN PRN PRN Reason: Moderate Pain (pain scale 4-5) Last Admin: 08/26/18 21:19 Dose: 10 mg Promethazine HCl (Phenergan) 12.5 mg IV Q6H PRN PRN PRN Reason: NAUSEA/VOMITING Last Admin: 08/26/18 22:13 Dose: 12.5 mg Psyllium Hydrophilic Mucilloid (Metamucil) 1 packet PO DAILY PRN PRN PRN Reason: CONSTIPATION Senna/Docusate Sodium (Senokot-S, [place]-Colace) 2 tablet PO BID PRN PRN PRN Reason: Constipation Last Admin: 08/26/18 09:45 Dose: 2 tablet Sodium Chloride () 5 - 30 ml IV UD PRN PRN Reason: SALINE FLUSH Last Admin: 08/26/18 12:39 Dose: 20 ml Tamsulosin HCl (Flomax) 0.4 mg PO DAILY@1730 [facility] Last Admin: 08/26/18 18:47 Dose: Not Given Throat Lozenges (Cepacol Sore Throat Lozenge) 2 lozenge MUCOUS MEM Q2H PRN PRN PRN Reason: sore throat Last Admin: 08/24/18 06:04 Dose: 2 lozenge Zolpidem Tartrate (Ambien (Generic)) 5 mg PO QHS PRN PRN PRN Reason: INSOMNIA Medical Necessity - Tobacco Use Smoking Status: Never smoker Assessment/Plan All Active Problems Left ureteral calculus (Acute) acute kidney injury (Acute) Left sided pyelonephritis (Acute) Hydronephrosis, left (Acute) 1. Left mid ureteric calculus abdominal pain has resolved, but he still hasnt passed stone on IV morphine, tamsulosin and IVF urology on board; scheduled for surgery today. on IV ceftriaxone for pyelonephritis 2. ?MARIA TERESA on CKD May be post renal from hydronephrosis. he denies any history of CKD; no baseline in [facility] CT abdomen showed left hydronephrosis and hydroureter. Creatinine is down to 2.11 from about 2.4 on admission. Baseline not known. considering how CR has remained around 2 since admission despite all the IVF, it is likely that this is CKD to follow up with nephrology on outpatient basis. Continue gentle hydration with IV fluids. 3. Left pyelonephritis: CT abdomen showed left perinephric stranding and left periureteric stranding. on IV ceftriaxone. Will continue IV ceftriaxone for now; will dc IV antibiotics after surgery. urine cultured E.coli. Blood cultures are negative. 4. URTI due to rhinovirus infection: respiratory panel isolated Rhinovirus/ respiratory precautions. Supportive treatment. 5. Hypertension: poorly controlled. on amlodipine 10mg daily. HCTZ 12.5mg added on. Will monitor blood pressure and adjust as needed. DVT prophylaxis: heparin GI prophylaxis: Famotidine Code Visit Inpatient E&M: 33089 [facility] Hosp L2
--- NOTE | 2018-08-27 10:38 | PN_ITS ---
Patient Problems: Active and Suspected Problems Left ureteral calculus (Acute) acute kidney injury (Acute) Left sided pyelonephritis (Acute) Hydronephrosis, left (Acute) Subjective: Patient seen and examined. He was very comfortable and had a good night's rest. He denies any fever or chills, cough or chest pain, any shortness of breath, abdominal pain, any diarrhea vomiting. 12 point review of systems otherwise negative. Labs and vitals reviewed. Vitals/I&O's: Vital Signs Temp Pulse Resp BP Pulse Ox 98.8 F 70 18 163/81 H 96 08/27/18 09:52 08/27/18 09:52 08/27/18 09:52 08/27/18 09:52 08/27/18 09:52 Oxygen Delivery Method Room Air Weight: 201 lb 15.095 oz Body Mass Index (BMI) 30.7 Intake and Output for Last 24 Hours 08/25/18 08/26/18 08/27/18 23:59 23:59 23:59 Intake Total 3836 / 3836 4230 / 4230 Output Total 4050 / 4050 3475 / 3475 600 / 600 Balance -214 / -214 755 / 755 -600 / -600 General: Alert, Oriented x3, Cooperative, No apparent distress HEENT: Atraumatic, PERRLA, EOMI, Normocephalic Oral: Moist Mucosa Neck: Supple, No JVD, Negative Carotid Bruits Lungs: Clear to auscultation, Normal air movement, No rhonchi, No wheeze, No rales Cardiovascular: Regular rate, Regular Rhythm, Normal S1, Normal S2, No murmurs Abdomen: Bowel Sounds Present, Soft, Non Tender, Non-Distended, No Hepato- splenomegaly Extremities: No clubbing, No cyanosis, No edema Skin: No rashes, No breakdown Musculoskeletal: No Tenderness to Palpation of Joints or Extremities Lymphatic: No Cervical, Supraclavicular, or Inguinal Adenopathy Neurological: Cranial nerves II-XII grossly intact, Neuro grossly intact, Motor Exam 5/5 strength throughout Psych/Mental Status: Normal Affect, Appropriate, Alert and oriented to time, place, person, mood and affect Microbiology Past 72 Hours 08/24/18 01:10 Blood Culture (Wb) - Right Forearm Blood Culture - Preliminary No growth in 48 hours. 08/23/18 22:56 Blood Culture (Wb) - Anticubital Right Blood Culture - Preliminary No growth in 48 hours. 08/24/18 09:30 Sputum, Expectorated/Coughed Gram Stain - Final 08/24/18 09:30 Sputum, Expectorated/Coughed Respiratory Culture - Final Mixed normal respiratory rhina. No Haemophilus, Streptococcus pneumoniae, beta-hemolytic Streptococcus or Staphylococcus aureus isolated. 08/23/18 23:25 Urine, Clean Catch Urine Culture - Final Presumptive E. coli 08/24/18 10:25 Mucosa - Nasopharyngeal Respiratory Panel (PCR) - Final Rhinovirus 08/24/18 10:25 Mucosa - Nasopharyngeal Influenza Types A,B Direct FA (PRASANTH) - Final Laboratory Results 08/27/18 05:25: WBC 5.2, RBC 3.84 L, Hgb 11.7 L, Hct 34.2 L, MCV 89.1, MCH 30.5, MCHC 34.2, RDW 12.6, RDW Differential 40.4, Plt Count 186, MPV 8.0, Immature Gran % (Auto) 0.200, Neut % (Auto) 75.4 H, Lymph % (Auto) 12.5 L, [place] % (Auto) 9.2, Eos % (Auto) 2.5, Baso % (Auto) 0.2, Absolute Neuts (auto) 3.9, Absolute Lymphs (auto) 0.65 L, Total Counted Not Reportable 08/27/18 05:25: Sodium 140, Potassium 4.5, Chloride 104, Carbon Dioxide 28.0, Anion Gap 8, BUN 14, Creatinine 2.12 H, Estim Creat Clear Calc 32.26, Est GFR (MDRD) Af Amer 40 L, Est GFR (MDRD) Non-Af 33 L, BUN/Creatinine Ratio 6.6 L, Glucose 93, Calcium 8.2 L Current Medications Acetaminophen (Tylenol) 650 mg PO Q6H PRN PRN PRN Reason: Mild Pain (scale 0-3)/T>100.7 Last Admin: 08/26/18 09:45 Dose: 650 mg Al Hydroxide/Mg Hydroxide (Mylanta Ii) 30 ml PO Q6H PRN PRN PRN Reason: Gastric burning Last Admin: 08/26/18 09:46 Dose: 30 ml Amlodipine Besylate (Norvasc) 10 mg PO DAILY KATELYN Last Admin: 08/27/18 10:10 Dose: 10 mg Famotidine (Pepcid) 20 mg PO BID [facility] Last Admin: 08/27/18 10:07 Dose: 20 mg Heparin Sodium (Porcine) (Heparin Na) 5,000 unit SC Q12 [facility] Last Admin: 08/27/18 07:59 Dose: Not Given Hydrochlorothiazide (Hydrochlorothiazide) 12.5 mg PO DAILY [facility] Sodium Chloride () 1,000 mls @ 150 mls/hr IV .Q6H40M [facility] Last Admin: 08/27/18 04:44 Dose: 150 mls/hr Ceftriaxone Sodium (Rocephin) 1 gm in 50 mls @ 100 mls/hr IV Q12 [facility] Last Admin: 08/27/18 09:50 Dose: 100 mls/hr Magnesium Hydroxide (Milk Of Magnesia) 30 ml PO DAILY PRN PRN PRN Reason: Constipation Last Admin: 08/26/18 09:46 Dose: 30 ml Morphine Sulfate () 2 - 4 mg IV Q3H PRN PRN PRN Reason: Severe Pain (pain scale 6-10) Last Admin: 08/26/18 22:17 Dose: 4 mg Ondansetron HCl (Zofran) 4 mg IV Q4H PRN PRN PRN Reason: NAUSEA Last Admin: 08/26/18 12:39 Dose: 4 mg Oxycodone HCl (Oxyir) 10 mg PO Q4H PRN PRN PRN Reason: Moderate Pain (pain scale 4-5) Last Admin: 08/26/18 21:19 Dose: 10 mg Promethazine HCl (Phenergan) 12.5 mg IV Q6H PRN PRN PRN Reason: NAUSEA/VOMITING Last Admin: 08/26/18 22:13 Dose: 12.5 mg Psyllium Hydrophilic Mucilloid (Metamucil) 1 packet PO DAILY PRN PRN PRN Reason: CONSTIPATION Senna/Docusate Sodium (Senokot-S, [place]-Colace) 2 tablet PO BID PRN PRN PRN Reason: Constipation Last Admin: 08/26/18 09:45 Dose: 2 tablet Sodium Chloride () 5 - 30 ml IV UD PRN PRN Reason: SALINE FLUSH Last Admin: 08/26/18 12:39 Dose: 20 ml Tamsulosin HCl (Flomax) 0.4 mg PO DAILY@1730 [facility] Last Admin: 08/26/18 18:47 Dose: Not Given Throat Lozenges (Cepacol Sore Throat Lozenge) 2 lozenge MUCOUS MEM Q2H PRN PRN PRN Reason: sore throat Last Admin: 08/24/18 06:04 Dose: 2 lozenge Zolpidem Tartrate (Ambien (Generic)) 5 mg PO QHS PRN PRN PRN Reason: INSOMNIA Medical Necessity - Tobacco Use Smoking Status: Never smoker Assessment/Plan All Active Problems Left ureteral calculus (Acute) acute kidney injury (Acute) Left sided pyelonephritis (Acute) Hydronephrosis, left (Acute) 1. Left mid ureteric calculus * abdominal pain has resolved, but he still hasnt passed stone * on IV morphine, tamsulosin and IVF * urology on board; scheduled for surgery today. * on IV ceftriaxone for pyelonephritis * * 2. ?MARIA TERESA on CKD * May be post renal from hydronephrosis. * he denies any history of CKD; no baseline in ords * CT abdomen showed left hydronephrosis and hydroureter. * Creatinine is down to 2.11 from about 2.4 on admission. Baseline not known. * considering how CR has remained around 2 since admission despite all the IVF, it is likely that this is CKD * to follow up with nephrology on outpatient basis. * Continue gentle hydration with IV fluids. 3. Left pyelonephritis: * CT abdomen showed left perinephric stranding and left periureteric stranding. * on IV ceftriaxone. * Will continue IV ceftriaxone for now; will dc IV antibiotics after surgery. * urine cultured E.coli. Blood cultures are negative. * 4. URTI due to rhinovirus infection: respiratory panel isolated Rhinovirus/ respiratory precautions. Supportive treatment. 5. Hypertension: * poorly controlled. on amlodipine 10mg daily. HCTZ 12.5mg added on. * Will monitor blood pressure and adjust as needed. * DVT prophylaxis: heparin GI prophylaxis: Famotidine Code Visit Inpatient E&M: 93691 Subs Hosp L2
--- NOTE | 2018-08-27 13:10 | OP.PCM_ITS ---
Report of Operation Date of Procedure: 08/27/18 Pre-Operative Diagnosis: Left ureteral calculi Post-Operative Diagnosis: Same Surgery/Procedure Performed:: Cystoscopy, left retrograde pyelogram, left balloon dilation of the ureter, ureteroscopy basket extraction and laser lithotripsy of stone, left stent placement Description of Surgical Findings:: 67-year-old male taken back to the operating room after smooth induction of anesthesia he was placed in dorsal lithotomy position went of the bladder with a 21 Sammarinese rigid cystourethroscope identified the left ureteral orifice cannulated with a wire advanced a wire up into the kidney balloon dilated the distal left ureter, I then went over the wire with a flexible ureteroscope was able to get up to the mid ureter identified the stone I then used a stone basket basketed stone was able to track the stone all the way down the ureter but then it got stuck in the distal ureter I then that the cut off the basket backloaded off the basket with the ureteroscope went in with a SlimLine ureteroscope went back up the ureter and then used the laser fiber to laser the stone within the basket and then once the stone was lasered up I pulled the basket out the stone fragments I then went back in the ureter performed a retrograde pyelogram there is no extravasation damage or injure the ureter but since I had to do a complicated procedure and decided to leave a stent inserted and advanced a wire up into the left kidney and then over the wire place a stent 6 Sammarinese by 26 cm stent left the string on the stent for extraction near future drain the bladder patient's anesthetic was reversed. Patient should go home today and he can follow-up in the office in a week to remove the stent. Type of Anesthesia:: General Drains: stent - Admit VTE Documentation VTE Present on Admission: No VTE Mechan Device Prophylaxis: SCD's
[2018-08-27] MEDS: hydroCHLOROthiazide 12.5mg 12.5 MG PO (14:52)
--- NOTE | 2018-08-27 15:38 | DCINST_ITS ---
- Discharge Diagnoses Current Active Problems: Current Active and Chronic Problems Left ureteral calculus (Acute) acute kidney injury (Acute) Left sided pyelonephritis (Acute) Hydronephrosis, left (Acute) Hypertension (Chronic) You will use the following diet at home:: No restrictions Your food should be the consistency of: Regular Your liquids should be the consistency of: Regular/Thin Discharge Activity: Return to Normal Activity Weight Bearing Status: Weight bearing as tolerated Call your doctor if you observe: Fever of 101 or Higher, Inability to urinate Allergies/Adverse Reactions: Allergies No Known Allergies Allergy (Verified 08/23/18 20:33) Medications to take at Discharge Ondansetron [Zofran Odt] 4 mg PO Q8H PRN PRN #10 tab 08/23/18 Tamsulosin HCl [Flomax] 0.4 mg PO DAILY 08/23/18 Amlodipine [Norvasc] 10 mg PO DAILY #30 tablet 08/27/18 The following prescriptions were given: Amlodipine [Norvasc] 10 mg PO DAILY #30 tablet Primary Care Physician: Care Physician,No Primary [Primary Care Provider] - Please follow up with your Primary Care Physician in: one week Test Results: Test results from this visit will be discussed in further detail at your follow- up appointment, if applicable. Please Follow Up With: Manfred To MD When: 1-2 weeks Proposed Discharge Date: 08/27/18
--- NOTE | 2018-08-27 15:42 | DS.PCM_ITS ---
Discharge Date and Diagnosis - Problem List Patient Problems: Active and Suspected Problems Left ureteral calculus (Acute) acute kidney injury (Acute) Left sided pyelonephritis (Acute) Hydronephrosis, left (Acute) Date of Admission: 08/23/18 Date of Discharge: 08/27/18 - Primary Discharge Diagnosis Active and Suspected Problems Left ureteral calculus (Acute) acute kidney injury (Acute) Left sided pyelonephritis (Acute) Hydronephrosis, left (Acute) - Secondary Discharge Diagnosis Chronic Problems Hypertension (Chronic) Hospital Course and Treatment Imaging Results: 08/27/18 08:12 O.R. Fluoro for C-Arm [RAD] Urgent Diagnostic Data Abdomen X-Ray 08/26/18 17:00 IMPRESSION: Fluid levels in nondilated bowel is nonspecific but may indicate enterocolitis. Moderate stool burden. No evidence of renal stone. Electronically Signed: Peggy Monte MD at 18:05 EST Tel , Service support , urology- Dr To Operations: - - ureteroscopy with stone removal Summary of Care Provided: The patient is a 67 year old M who was admitted with a complaint of left-sided abdominal pain with assisted nausea and vomiting. Pain became worse, colicky in nature and localized in the left lumbar region so he decided to come to the ED. CT abdomen done in the ED showed a 4.4 cm calculus in the proximal portion of the left ureter causing left hydronephrosis with left perinephric stranding. Labs showed creatinine of 2.41 and UA was bland otherwise. He was seen in the ED and went home but came back in the evening because the pain had worsened. He was started on IV ceftriaxone for suspected pyelonephritis and started on IV fluids, IV morphine and tamsulosin. He was subsequently started on p.o. amlodipine also for newly diagnosed hypertension. Patient's pain control i mproved urine culture E. coli sensitive to ceftriaxone. Patient had ureteroscopy with removal of stone on 08/27/2018. He tolerated procedure well and remained stable. He was discharged home on 08/27/2018. In total he had about 5 days of antibiotics. He is to follow-up with his PCP and urologist. Patient seen and examined. He had no complaints and felt well. He tolerated the procedure well and denied any fever or chills, any cough or chest pain, shortness of breath, abdominal pain, diarrhea vomiting. Review of systems otherwise negative. Labs and vitals reviewed. Examination Vitals: Vital Signs Height 5 ft 8 in Weight: 201 lb 15.095 oz Weight in Pounds 201.9 lbs Pulse Ox 94 Temperature 97.7 F Pulse Rate 60 Respiratory Rate 18 Blood Pressure [BP] 140/74 Blood Pressure 153/73 Blood Pressure Position [BP] Supine Blood Pressure Position Semi-Fowlers General: Alert, Oriented x3, Cooperative, No apparent distress HEENT: Atraumatic, PERRLA, EOMI, Normocephalic Oral: Moist Mucosa Neck: Supple, No JVD, Negative Carotid Bruits Lungs: Clear to auscultation, Normal air movement, No rhonchi, No wheeze, No rales Cardiovascular: Regular rate, Regular Rhythm, Normal S1, Normal S2, No murmurs Abdomen: Bowel Sounds Present, Soft, Non Tender, Non-Distended, No Hepato- splenomegaly Extremities: No clubbing, No cyanosis, No edema Skin: No rashes, No breakdown Musculoskeletal: No Tenderness to Palpation of Joints or Extremities Lymphatic: No Cervical, Supraclavicular, or Inguinal Adenopathy Neurological: Cranial nerves II-XII grossly intact, Neuro grossly intact, Motor Exam 5/5 strength throughout Psych/Mental Status: Normal Affect, Appropriate, Alert and oriented to time, place, person, mood and affect [] Plan as stated above. He is to follow up with PCP and urologist. Patient Problems: Active and Suspected Problems Left ureteral calculus (Acute) acute kidney injury (Acute) Left sided pyelonephritis (Acute) Hydronephrosis, left (Acute) - Physical Exam Vital Signs Temp Pulse Resp BP Pulse Ox 97.7 F L 60 18 153/73 H 94 08/27/18 14:15 08/27/18 14:15 08/27/18 14:15 08/27/18 14:15 08/27/18 14:15 Oxygen Flow Rate (L/min) 2 Oxygen Delivery Method Nasal Cannula Weight: 201 lb 15.095 oz Body Mass Index (BMI) 30.7 Intake and Output for Last 24 Hours 08/25/18 08/26/18 08/27/18 23:59 23:59 23:59 Intake Total 3836 / 3836 4230 / 4230 1960 Output Total 4050 / 4050 3475 / 3475 1400 / 1400 Balance -214 / -214 755 / 755 561 / 561 Microbiology Past 72 Hours 08/24/18 01:10 Blood Culture - Preliminary Blood Culture (Wb) - Right Forearm No growth in 48 hours. 08/23/18 22:56 Blood Culture - Preliminary Blood Culture (Wb) - Anticubital Right No growth in 48 hours. 08/24/18 09:30 Gram Stain - Final Sputum, Expectorated/Coughed Respiratory Culture - Final Mixed normal respiratory rhina. No Haemophilus, Streptococcus pneumoniae, beta-hemolytic Streptococcus or Staphylococcus aureus isolated. 08/23/18 23:25 Urine Culture - Final Urine, Clean Catch Presumptive E. coli 08/24/18 10:25 Respiratory Panel (PCR) - Final Mucosa - Nasopharyngeal Rhinovirus Influenza Types A,B Direct FA (PRASANTH) - Final Laboratory Tests Past 24 Hrs 08/27/18 08/27/18 05:25 05:25 WBC 5.2 RBC 3.84 L Hgb 11.7 L Hct 34.2 L MCV 89.1 MCH 30.5 MCHC 34.2 RDW 12.6 RDW Differential 40.4 Plt Count 186 MPV 8.0 Immature Gran % (Auto) 0.200 Neut % (Auto) 75.4 H Lymph % (Auto) 12.5 L [place] % (Auto) 9.2 Eos % (Auto) 2.5 Baso % (Auto) 0.2 Absolute Neuts (auto) 3.9 Absolute Lymphs (auto) 0.65 L Total Counted Not Reportable Sodium 140 Potassium 4.5 Chloride 104 Carbon Dioxide 28.0 Anion Gap 8 BUN 14 Creatinine 2.12 H Estim Creat Clear Calc 32.26 Est GFR (MDRD) Af Amer 40 L Est GFR (MDRD) Non-Af 33 L BUN/Creatinine Ratio 6.6 L Glucose 93 Calcium 8.2 L Discharge Activity: Return to Normal Activity Weight Bearing Status: Weight bearing as tolerated Call your doctor if you observe: Fever of 101 or Higher, Inability to urinate Home Medications: Medications to take at Discharge Ondansetron [Zofran Odt] 4 mg PO Q8H PRN PRN #10 tab 08/23/18 Tamsulosin HCl [Flomax] 0.4 mg PO DAILY 08/23/18 Amlodipine [Norvasc] 10 mg PO DAILY #30 tablet 08/27/18 Following Prescrptions Were Given to Patient: Amlodipine [Norvasc] 10 mg PO DAILY #30 tablet Primary Care Physician: Care Physician,No Primary [Primary Care Provider] - Please follow up with your Primary Care Physician in: one week Please Follow Up With: Manfred To MD When: 1-2 weeks Disposition: Home Minutes spent on discharge:: 35 Patient Condition:: Stable Medical Necessity - Tobacco Use Smoking Status: Never smoker Meaningful Use Info Meaningful Use Diagnoses (Choose all that apply): None applicable Code Visit Inpatient E&M: 82299 Disch Hosp
[2018-08-27] MEDS: Tamsulosin HCl 0.4 MG Capsule PO (16:47)
[2018-09-05 12:08] LABS: Uric Acid 100 % (.)
[2018-09-05 19:37] LABS: Comment Note: (.)
== END 2018-08-27 16:56 | disposition home or self-care (01) | DRG 661 ==
LOC: ED 21:18 → MS3 21:37
PROVIDERS: Urology; Admitting Provider Internal Medicine; Emergency Provider Emergency Medicine; Visit Provider Student in an Organized Health Care Education/Training Program
PROC: 0TC78ZZ Extirpation of Matter from Left Ureter, Via Natural or Artificial Opening Endoscopic (ICD-10-PCS; principal; 2018-08-27 10:45)
DX: N13.6 Pyonephrosis (principal); N17.9 Acute kidney failure, unspecified; N12 Tubulo-interstitial nephritis, not specified as acute or chronic; J06.9 Acute upper respiratory infection, unspecified; B97.89 Other viral agents as the cause of diseases classified elsewhere; I10 Essential (primary) hypertension; R79.89 Other specified abnormal findings of blood chemistry; Z87.442 Personal history of urinary calculi
CPT/HCPCS: 36415; 74019; 74176; 76000; 80048; 80053; 81001; 82360; 83690; 85025; 87040; 87070; 87086; 87088; 87205; 87633; 87804; 88300; 96361; 96374; 96375; 97802; 99283; 99284; J7030; A4216; C1769; C2617; J2405

== ENCOUNTER 2019-11-28 12:13 | Observation (INO) | payer SELFPAY ==
[2019-11-28] VITALS (11 sets, daily range): BP systolic 140–179; BP diastolic 74–105; PULSE 51–58; RESP 15–17; TEMP 36.8–36.9; O2SAT 96–99; BMI 33.4; BMI 33.5; BMI 30.7
--- NOTE | 2019-11-28 12:30 | EKG12_ITS ---
Test Reason : CP Blood Pressure : / mmHG Vent. Rate : 049 BPM Atrial Rate : 049 BPM P-R Int : 174 ms QRS Dur : 106 ms QT Int : 484 ms P-R-T Axes : 019 -05 079 degrees QTc Int : 437 ms Sinus bradycardia Nonspecific T wave abnormality Abnormal ECG When compared with ECG of 28-NOV-2019 12:26, MANUAL COMPARISON REQUIRED, DATA IS UNCONFIRMED Confirmed by ANNETTE APARICIO ([id number]), film editor HOA JAMES ([id number]) on 11/29/2019 1:17:55 PM Referred By: EILEEN Confirmed By:ANNETTE APARICIO
--- NOTE | 2019-11-28 12:30 | RAD_ITS ---
STUDY: X-RAY CHEST REASON FOR EXAM: Male, 69 years old. chest pain/tightness x several weeks TECHNIQUE: Single AP portable view of the chest. COMPARISON: None. FINDINGS: The lungs are clear and expanded. There is no demonstrated pleural abnormality. Normal size heart. Normal mediastinum and gladys. Normal visualized pulmonary arteries. Normal visualized aortic arch and descending thoracic aorta. Normal visualized thoracic spine. Normal visualized ribs, clavicles, and shoulders. There is no demonstrated abnormality of the visualized soft tissue structures of the upper abdomen. RAD/Chest 1 View (Portable) IMPRESSION: Normal x-ray examination of the chest. Electronically Signed: Didier Velázquez MD at 13:22 EST Tel , Service support ,
--- NOTE | 2019-11-28 12:32 | ED.RN ---
NO OLD EKG
[2019-11-28] MEDS: Aspirin 81 MG TAB.CHEW 324 MG PO (12:39)
[2019-11-28] MEDS: Nitroglycerin Oint 1 INCH PACKET TRANSDERM. (12:42)
[2019-11-28 12:48] LABS: Absolute Lymphocyte Count 0.99 X10^3/uL (0.83-4.51); Absolute Neutrophil Count 6.1 X10^3/uL (2.0-7.7); Basophil# 0.03 X10^3/uL; Basophil% 0.4 % (0-1); Eosinophil# 0.17 X10^3/uL; Eosinophils% 2.2 % (0-5); Hematocrit 44.5 % (40-54); Hemoglobin 15.5 g/dL (13.0-16.5); Lymphocyte # 0.99 X10^3/ul (4.0); Lymphocyte % 12.8 % (19-41); Mean Corp Hgb Conc 34.8 g/dL (32-36); Mean Corpuscular Volume 86.1 fL (80-94); Monocyte# 0.39 X10^3/uL; NRBC Flagged by Analyzer 0 % (0-5); Neutrophil # 6.14 X10^3/uL (2.7-7.7); Neutrophil % 79.3 % (47-70); Platelet Count 223 K/mm3 (150-450); RBC Distribution Width SD 37.5 fl (35.1-43.9); Red Blood Count 5.17 M/mm3 (4.6-6.2); White Blood Count 7.7 K/mm3 (4.4-11.0)
[2019-11-28 13:06] LABS: Anion Gap 5 (5-15); BUN 19 mg/dL (7-18); BUN/Creat Ratio 14.8 RATIO (10-20); Chloride 109 mmol/L (98-107); Creatinine, Serum 1.28 mg/dL (0.70-1.30); EST Glomerular Filtration Rate 59 mL/min (>60); Est Glom Filt Rate - Afr Amer 71 mL/min (>60); Estimated Creatinine Clearance 51.95 ml/min; Glucose 106 mg/dL (74-106); Potassium 4.3 mmol/L (3.5-5.1); Sodium Level 140 mmol/L (136-145)
[2019-11-28 13:09] LABS: BNP,B-Type NATRIURETIC PEPTIDE 59.8 pg/mL (0-100)
[2019-11-28 13:39] LABS: D-Dimer Quantitative (DVT/PE) 0.85 FEU/ug/m (0.27-0.49)
--- NOTE | 2019-11-28 13:42 | CT_ITS ---
STUDY: CTA CHEST REASON FOR EXAM: Male, 69 years old. INCREASED SOB X 1 WK, FEELS FAINT, HX-HTN RADIATION DOSAGE (If Supplied By Facility): CTDIvol = ( 14.19 ) mGy, DLP = ( 461.34 ) mGycm TECHNIQUE: The examination was performed with the intravenous administration of IV 100mL Isovue-370. Post-processing of the angiographic images was performed, with multiplanar reformation and 3D reconstruction. Individualized dose optimization techniques were used for this CT. COMPARISON: None. FINDINGS: There is a 2.9 cm x 3.9 cm x 3.3 cm well-defined soft tissue density in the subcutaneous tissues overlying the medial aspect of the upper right chest wall. Small bilateral axillary lymph nodes. Normal enhancement of the main pulmonary artery and right and left pulmonary arteries. Normal enhancement of the bilateral peripheral pulmonary arteries. There is no demonstrated pulmonary embolism. Normal thoracic aorta and visualized great vessels. There is no demonstrated aortic dissection. Normal heart and pericardium. There are visualized mediastinal lymph nodes, which are within normal size limits, and with normal morphology. Normal hilar regions. Normal visualized trachea and bronchi. The lungs are well expanded. Normal pulmonary parenchyma. Normal pleura. Normal chest wall structures. There are degenerative changes of thoracic spine. Normal visualized upper abdomen. CT/CTA Chest W/WO Contrast IMPRESSION: No evidence of pulmonary embolism. 2.9 cm x 3.9 cm x 3.3 cm well-defined soft tissue density in the subcutaneous tissues overlying the medial aspect of the right upper chest wall. Electronically Signed: Sam Fletcher, at 14:45 EST , Service support ,
--- NOTE | 2019-11-28 15:03 | ED.VISSUMM ---
- ER Visit Summary Date of Service: 11/28/19 Chief Complaint: [Shortness of breath and chest discomfort] History of Present Illness: The patient is a 69 M [presents the emergency department complaint of shortness of breath over the last week. Patient states that he has 5-6 episodes per day that last anywhere from 5 to 10 minutes. Patient describes a lot of heaviness and pressure in his chest and today had discomfort that went down both arms. The symptoms are not necessarily exertional and can come on at rest. Patient has been under increased stress of late. He denies any nausea or vomiting. He denies recent illness. Denies fever cough. He denies recent travel or surgery. Patient is never experienced discomfort like this before. Patient has no heart history. He does have prior history of hypertension but was taken off his medications and was told that he would need it anymore.] Physical Examination: [HEENT-PERRLA, EOMI. Cranial nerves II through XII grossly intact. TMs clear. Mucous membranes moist. No adenopathy. Cardiovascular-regular rate and rhythm without murmur or ectopy Lungs-clear to auscultation, chest wall stable without crepitus or subcu emphysema Abdomen-normoactive bowel sounds, soft, nontender, no rebound or rigidity, no peritoneal signs. Extremities-intact ?4, normal range of motion, normal pulses, atraumatic] Test Results: [EKG obtained on arrival showed sinus bradycardia with ventricular rate of [address] changes. CBC with differential showed a white count 7.7, hemoglobin 15.5, hematocrit 44.5, platelets 223. Chemistries unremarkable. Troponin was less than 0.015. BNP was 60. D-dimer was 0.85. Chest x-ray showed nothing acute. CTA of the chest obtained showed no PE or dissection.] Emergency Department Course and Treatment: [Patient was given aspirin on arrival and given an inch of Nitropaste applied to the chest wall. Patient states that he had significant relief with the Nitropaste as far as the pressure on his chest.] Treatment Plan: [Admit for further work-up and evaluation of his chest discomfort and dyspnea] Disposition: [Admit to rule out acute coronary syndrome] Impression: [Chest pain-rule out acute coronary syndrome] This note was generated with [employer] software. It may contain incorrect words, spelling, and punctuation that were not noted in review of the chart prior to signing ED Disposition - Plan for ED Patient: Referrals: Paola Bourgeois [Primary Care Provider] -
--- NOTE | 2019-11-28 15:28 | HP.PCM_ITS ---
History of Present Illness Date of Admission: 11/28/19 Chief Complaint: chest pressure The patient is a 69 year old M with no significant PMH who was admitted with a complaint of chest pressure which has been going on for about 2 weeks. He states like he feels like he has been smothered in his chest and someone is sitting on his chest. Chest pressure was not aggravated by exertion or relieved by rest. He had no associated shortness of breath, dizziness, lightheadedness, palpitations, nausea or vomiting. Review of stems otherwise negative. Symptoms worsened today so he decided to come into the ED. He has never had such chest pain in the past and has no cardiac history. Chest pain was relieved by SL nitroglycerin and PO aspirin. He denies any history of DVT or PE. On arrival in the ED, vitals were BP of 151/79, with AK of 54 and RR of 16. He was saturating at 98% on 2 L of oxygen. Chemistry was unremarkable initial troponin was negative. BNP was only 59.8 and CBC was unremarkable. CTA done was negative for any PE and chest x-ray showed no acute cardiopulmonary process. He has been admitted to be managed for chest pain rule out ACS. [] Past Medical History Past Medical History (Chronic Problems): Chronic Problems Hypertension (Chronic) Allergies No Known Allergies Allergy (Verified 11/28/19 12:14) Home Medications: Ambulatory Orders Medication Instructions Recorded Ibuprofen 400 - 600 mg PO DAILY PRN PRN 11/28/19 Surgical History: noncontributory Psychiatric History: No pertinent psych hx Lives: With Family Smoking Status: Never smoker Tobacco Use: Non-smoker Alcohol: None Drugs: None - *Family History Paternal History Items: No pertinent history - No significant history of kidney stone and family Maternal History Items: Heart Disease - mother has heart failure Review of Systems Constitutional: Denies: Chills, Fever, Malaise, Weakness, Weight Change Eyes: Denies: Blurred vision HEENT: Denies: Head Aches, Sinus Congestion, Sinus Drainage Cardiovascular: Reports: Chest Pain, Chest Pressure, Heaviness. Denies: Chest Tightness, Edema, Light Headedness, Orthopnea, Palpitations, Paroxysmal Noc. Dyspnea, Syncope Respiratory: Denies: Cough, Pleuritic Pain, Shortness of Breath, Shortness of breath at rest, Shortness of breath upon exertion, Sputum production Gastrointestinal: Denies: Abdominal Pain, Nausea, Vomiting Genitourinary: Denies: Dysuria Musculoskeletal: Denies: Joint Pain, Joint Tenderness Skin: Denies: Rash, Wounds Neurological: Denies: Numbness, Tingling, Focal weakness Psychiatric: Denies: Anxiety, Depression, Homicidal Ideations, Suicidal Ideations Hematologic/ Lymphatic: Denies: Easy Bruising, Easy Bleeding VTE Information - Inpt Only VTE Present on Admission: No VTE Pharm Prophylaxis ordered?: Yes - Physical Exam Vitals/I&O's: Vital Signs Temp Pulse Resp BP Pulse Ox 98.3 F 54 L 16 151/79 H 98 11/28/19 12:14 11/28/19 15:12 11/28/19 15:12 11/28/19 15:12 11/28/19 15:12 Oxygen Flow Rate (L/min) 2 Oxygen Delivery Method Nasal Cannula Weight: 220 lb Body Mass Index (BMI) 33.4 General: Alert, Oriented x3, Cooperative, No apparent distress HEENT: Atraumatic, PERRLA, EOMI, Normocephalic Oral: Moist Mucosa Neck: Supple, No JVD, Negative Carotid Bruits Lungs: Clear to auscultation, Normal air movement, No rhonchi, No wheeze, No rales Cardiovascular: Regular Rhythm, Normal S1, Normal S2, No murmurs, Bradycardic Abdomen: Bowel Sounds Present, Soft, Non Tender Extremities: No clubbing, No cyanosis, No edema, Capillary Refill Less than 3 Seconds Skin: No rashes, No breakdown Musculoskeletal: No Tenderness to Palpation of Joints or Extremities, - - lipoma on right side of chest Lymphatic: No Cervical, Supraclavicular, or Inguinal Adenopathy Neurological: Cranial nerves II-XII grossly intact, Neuro grossly intact, Motor Exam 5/5 strength throughout Psych/Mental Status: Normal Affect, Appropriate, Alert and oriented to time, place, person, mood and affect Laboratory Results 11/28/19 12:33: WBC 7.7, RBC 5.17, Hgb 15.5, Hct 44.5, MCV 86.1, MCH 30.0, MCHC 34.8, RDW Std Deviation 37.5, RDW Coeff of Khloe 12.0, Plt Count 223, MPV 8.0, Immature Gran % (Auto) 0.300, Neut % (Auto) 79.3 H, Lymph % (Auto) 12.8 L, [place] % (Auto) 5.0, Eos % (Auto) 2.2, Baso % (Auto) 0.4, Absolute Neuts (auto) 6.1, Absolute Lymphs (auto) 0.99, Nucleated RBC % 0 11/28/19 12:33: D-Dimer Quant (PE/DVT) 0.85 H* 11/28/19 12:33: Sodium 140, Potassium 4.3, Chloride 109 H, Carbon Dioxide 26.0, Anion Gap 5, BUN 19 H, Creatinine 1.28, Estim Creat Clear Calc 51.95, Est GFR (MDRD) Af Amer 71, Est GFR (MDRD) Non-Af 59 L, BUN/Creatinine Ratio 14.8, Glucose 106, Calcium 9.0, Troponin I < 0.015 11/28/19 12:33: B-Natriuretic Peptide 59.8 Diagnostic Data Chest X-Ray 11/28/19 12:30 IMPRESSION: Normal x-ray examination of the chest. Electronically Signed: Didier Velázquez MD at 13:22 EST Tel , Service support , Chest CTA 11/28/19 13:42 IMPRESSION: No evidence of pulmonary embolism. 2.9 cm x 3.9 cm x 3.3 cm well-defined soft tissue density in the subcutaneous tissues overlying the medial aspect of the right upper chest wall. Electronically Signed: Sam Fletcher, at 14:45 EST , Service support , Current Medications Sodium Chloride () 1,000 mls @ 15 mls/hr IV .Q48H KATELYN Last Admin: 11/28/19 14:45 Dose: Not Given Documented by: Assessment/Plan All Active Problems Left ureteral calculus (Acute) acute kidney injury (Acute) Left sided pyelonephritis (Acute) Hydronephrosis, left (Acute) 69 y/o admitted with a complaint of chest pain 1. Chest pain to r/o ACS * Admit to PCU with telemetry * EKG showed no acute ST changes and showed only mild bradycardia. * Initial troponin is negative. We will cycle troponins x2 * P.o. aspirin 81 mg daily, sublingual nitroglycerin as needed. * For stress test tomorrow if troponins are negative. * 2. Elevated blood pressure: * No previous history of hypertension. * Blood pressure was 162/104 when he was admitted and peaked at 179/105. * Blood pressure had come down to 151/79 at time of review. * IV hydralazine PRN. Will monitor blood pressure overnight and if remains elevated, will consider starting p.o. blood pressure medications. * DVT prophylaxis: Lovenox Code Visit OBSV E&M: 37264 Initial observation care L2
--- NOTE | 2019-11-28 16:00 | EKG12_ITS ---
Test Reason : CP Blood Pressure : / mmHG Vent. Rate : 051 BPM Atrial Rate : 051 BPM P-R Int : 178 ms QRS Dur : 104 ms QT Int : 490 ms P-R-T Axes : 017 001 093 degrees QTc Int : 451 ms Sinus bradycardia Nonspecific ST and T wave abnormality Abnormal ECG When compared with ECG of 28-NOV-2019 16:26, MANUAL COMPARISON REQUIRED, DATA IS UNCONFIRMED Confirmed by ANNETTE APARICIO ([id number]), graphic editor HOA JAMES ([id number]) on 11/29/2019 1:18:58 PM Referred By: EILEEN Confirmed By:ANNETTE APARICIO
--- NOTE | 2019-11-28 17:33 | EKG12_ITS ---
Test Reason : CP Blood Pressure : / mmHG Vent. Rate : 046 BPM Atrial Rate : 046 BPM P-R Int : 172 ms QRS Dur : 108 ms QT Int : 530 ms P-R-T Axes : 028 005 093 degrees QTc Int : 463 ms Sinus bradycardia T wave abnormality, consider anterolateral ischemia Prolonged QT Abnormal ECG When compared with ECG of 28-NOV-2019 17:44, MANUAL COMPARISON REQUIRED, DATA IS UNCONFIRMED Confirmed by ANNETTE APARICIO ([id number]), web editor HOA JAMES ([id number]) on 11/29/2019 1:19:31 PM Referred By: DR LANDIS Confirmed By:ANNETTE APARICIO
[2019-11-28] MEDS: Nitroglycerin (INPATIENT USE) 0.4 MG TAB.SUBL SUBLINGUAL (17:48)
[2019-11-29] VITALS (18 sets, daily range): BP systolic 115–159; BP diastolic 66–84; PULSE 39–58; RESP 14–18; TEMP 36.5–37.1; O2SAT 94–99
[2019-11-29] MEDS: Nitroglycerin (INPATIENT USE) 0.4 MG TAB.SUBL SUBLINGUAL (03:29)
[2019-11-29] MEDS: Ondansetron 4 MG/2 ML Vial IV (03:46)
[2019-11-29] MEDS: 0.9% Saline Lock 10 ML Syringe IV ×2 (03:46→07:05)
--- NOTE | 2019-11-29 03:50 | EKG12_ITS ---
Test Reason : Blood Pressure : / mmHG Vent. Rate : 058 BPM Atrial Rate : 058 BPM P-R Int : 164 ms QRS Dur : 104 ms QT Int : 432 ms P-R-T Axes : 027 000 107 degrees QTc Int : 424 ms Sinus bradycardia Nonspecific ST and T wave abnormality Abnormal ECG Confirmed by ANNETTE APARICIO ([id number]), manager editorial RONEL LAW ([id number]) on 12/02/2019 3:44:50 PM Referred By: JOSEPH Confirmed By:ANNETTE APARICIO
--- NOTE | 2019-11-29 03:59 | NURSING ---
Pt denies wanting any more Nitro at this time. Does not want Morphine at this time. Rates chest tightness 2/10 at this time. Pt states his breathing is almost back to normal. States nausea has pretty much subsided at this time. Will continue to monitor.
[2019-11-29 05:20] LABS: Absolute Lymphocyte Count 0.96 X10^3/uL (0.83-4.51); Absolute Neutrophil Count 5.8 X10^3/uL (2.0-7.7); Basophil# 0.04 X10^3/uL; Basophil% 0.5 % (0-1); Eosinophil# 0.21 X10^3/uL; Eosinophils% 2.8 % (0-5); Hematocrit 43.3 % (40-54); Lymphocyte # 0.96 X10^3/ul (4.0); Lymphocyte % 12.6 % (19-41); Mean Corp Hgb Conc 34.6 g/dL (32-36); Mean Corpuscular Hgb 30.1 pg (27.0-32.0); Mean Corpuscular Volume 86.8 fL (80-94); Mean Platelet Vol. 7.9 fl (6.2-12.0); Monocyte# 0.56 X10^3/uL; Monocyte% 7.3 % (0-10); NRBC Flagged by Analyzer 0 % (0-5); Neutrophil # 5.81 X10^3/uL (2.7-7.7); Neutrophil % 76.1 % (47-70); Platelet Count 202 K/mm3 (150-450); RBC Distribution Width CV 12.1 % (11.6-14.6); RBC Distribution Width SD 38.1 fl (35.1-43.9); Red Blood Count 4.99 M/mm3 (4.6-6.2); White Blood Count 7.6 K/mm3 (4.4-11.0)
[2019-11-29 05:41] LABS: Anion Gap 2 (5-15); BUN 20 mg/dL (7-18); BUN/Creat Ratio 18.9 RATIO (10-20); Calcium,Total 8.4 mg/dL (8.5-10.1); Chloride 105 mmol/L (98-107); Creatinine, Serum 1.06 mg/dL (0.70-1.30); EST Glomerular Filtration Rate 73 mL/min (>60); Est Glom Filt Rate - Afr Amer 89 mL/min (>60); Estimated Creatinine Clearance 62.74 ml/min; Glucose 106 mg/dL (74-106); Potassium 4.1 mmol/L (3.5-5.1); Sodium Level 137 mmol/L (136-145)
--- NOTE | 2019-11-29 05:55 | ECHOD_ITS ---
Reason For Study: Chest Pain Procedure This was a 2D Doppler, Color Flow transthoracic echocardiogram. Exam performed in department. Left Ventricle Mild concentric left ventricular hypertrophy. The estimated ejection fraction is 65 %. Stage 1 diastolic dysfunction. No regional wall motion abnormalities noted. Right Ventricle Normal size and thickness. Normal systolic function. Atria Normal left atrium. Normal right atrium. Normal atrial septum. Mitral Valve The mitral valve is structurally normal. No prolapse or stenosis seen. Trivial eccentric mitral valve insufficiency. Tricuspid Valve Normal tricuspid valve. Trivial tricuspid valve insufficiency. Right ventricular systolic pressure estimated to be 12 mmHg. Aortic Valve Normal aortic valve. Trisinus/trileaflet aortic valve. Pulmonic Valve Normal pulmonic valve. Great Vessels Normal aortic root. Normal arch. Normal inferior vena cava. Inferior vena cava collapse with sniff. Pericardium/Pleural No pericardial effusion. MMode/2D Measurements & Calculations LVIDd: 4.8 cm IVSd: 1.4 cm Ao root diam: 3.2 cm LVIDs: 3.2 cm LVPWd: 1.1 cm RVDd: 3.6 cm FS: 32.0 % LAV(MOD-bp): 56.6 ml LVAd ap4: 33.3 cm2 SV(MOD-sp4): 61.7 ml LAV(MOD-bp) Indexed: 27.6 ml/m2 EDV(MOD-sp4): 106.9 ml LAV(MOD-sp2): 59.1 ml EDV(sp4-el): 109.7 ml LAV(MOD-sp4): 45.9 ml LVAs ap4: 19.8 cm2 ESV(MOD-sp4): 45.1 ml ESV(sp4-el): 46.0 ml EF(MOD-sp4): 57.8 % EF(sp4-el): 58.1 % SV(sp4-el): 63.7 ml LA A4 area: 17.1 cm2 LA dimension(2D): 4.1 cm RA A4 area: 14.4 cm2 Doppler Measurements & Calculations MV E max lan: 69.5 cm/sec Lat Peak E' Lan: 4.6 cm/sec Med Peak E' Lan: 3.2 cm/sec MV A max lan: 113.5 cm/sec E/E' lat: 15.0 E/E' med: 21.5 MV E/A: 0.61 Ao V2 max: 134.6 cm/sec LV V1 max: 110.6 cm/sec PA V2 max: 82.3 cm/sec Ao max P.2 mmHg LV V1 max P.9 mmHg Ao V2 mean: 88.7 cm/sec Ao mean P.5 mmHg Ao V2 VTI: 28.6 cm TR max lan: 135.7 cm/sec TR max P.4 mmHg Interpretation Summary Mild concentric left ventricular hypertrophy. The estimated ejection fraction is 65 %. Stage 1 diastolic dysfunction. Trivial eccentric mitral valve insufficiency. Trivial tricuspid valve insufficiency. Right ventricular systolic pressure estimated to be 12 mmHg. There is no comparison study available. Ordering Physician: Tess Vidal Referring Physician: Paola Bourgeois Performed By: Marielle Saravia, FRENCH, RVT
[2019-11-29] MEDS: Aspirin E.C. 81 MG Tablet PO (06:19)
[2019-11-29] MEDS: Morphine 2 MG/ML Syringe IV (07:04)
--- NOTE | 2019-11-29 10:31 | EKG12_ITS ---
Test Reason : CP Blood Pressure : / mmHG Vent. Rate : 056 BPM Atrial Rate : 056 BPM P-R Int : 168 ms QRS Dur : 110 ms QT Int : 486 ms P-R-T Axes : 023 -06 085 degrees QTc Int : 468 ms Sinus bradycardia Nonspecific T wave abnormality Prolonged QT Abnormal ECG When compared with ECG of 29-NOV-2019 03:55, MANUAL COMPARISON REQUIRED, DATA IS UNCONFIRMED Confirmed by ANNETTE APARICIO ([id number]), city editor BEHZAD COBIAN ([id number]) on 12/05/2019 9:51:16 AM Referred By: EILEEN Confirmed By:ANNETTE APARICIO
--- NOTE | 2019-11-29 10:35 | STRESSREP ---
Stress Test Report Pharmacologic myocardial perfusion stress test. 69-year-old lady with a history of chest pain. Stress protocol: Resting EKG demonstrates sinus bradycardia with a rate of 49 bpm normal intervals are noted resting blood pressures 152/80 mmHg. 0.4 mg of regadenoson was infused per usual protocol followed by Intravenous saline flush injection continuous EKG monitoring was performed. Occasional premature ventricular complexes were noted the patient maintained sinus rhythm throughout. The maximum heart rate was 69 bpm which was 1 metabolic equivalent and 46% of maximum predicted heart rate. The resting blood pressure was 152/80 with a final blood pressure 122/76. Myocardial perfusion protocol. 11.2 mCi of technetium 99m sestamibi was injected at rest. 0.4 mg of regadenoson was infused per usual protocol peak infusion 34.0 mCi of technetium 99m sestamibi was injected stress images were obtained stress and rest images were reconstructed and compared in the short axis vertical and horizontal long axis. Gated images were also obtained per Perfusion SPECT analysis: Review of the stress images demonstrate normal uptake of tracer noted in all areas of the myocardium the resting images similar demonstrate normal uptake of tracer noted in all areas of the myocardium. No reversibility is noted suggest ischemia. Gated SPECT analysis: The gated ejection fraction is 63%. Conclusion: Normal pharmacologic myocardial perfusion stress test. Preserved ejection fraction.
[2019-11-29] MEDS: amLODIPine 10 MG Tablet PO (11:11)
[2019-11-29] MEDS: TICAGRELOR 90 MG TABLET 180 MG PO (11:11)
[2019-11-29] MEDS: DiphenhydrAMINE 25 MG Capsule 50 MG PO (11:11)
[2019-11-29] MEDS: 0.9% Normal Saline 1,000 ML 15 ML IV (11:12)
[2019-11-29 11:14] LABS: Cholesterol 107 mg/dL (200); High Density Lipoprotein 26 mg/dL; Triglycerides 84 mg/dL; Very Low Density Lipoprotein 17 mg/dL (5-40)
--- NOTE | 2019-11-29 11:45 | PN_ITS ---
<Nat Sim - Last Filed: 11/29/19 12:09> Subjective: Patient seen and examined. Reports episode of chest pressure and shortness of breath overnight which was relieved by nitro. Denies symptoms during stress test this morning. Patient states he has had intermittent chest pressure and shortness of breath for the last few weeks which is not associated with exertion. Denies cardiac history. - Physical Exam Vitals/I&O's: Vital Signs Temp Pulse Resp BP Pulse Ox 98.8 F 53 L 15 159/79 H 97 11/29/19 10:29 11/29/19 10:29 11/29/19 10:29 11/29/19 10:29 11/29/19 10:29 Oxygen Flow Rate (L/min) 2 Oxygen Delivery Method Room Air Weight: 202 lb Body Mass Index (BMI) 30.7 Intake and Output for Last 24 Hours 11/27/19 11/28/19 11/29/19 23:59 23:59 23:59 Intake Total 0 / 0 Balance 0 / 0 General: Alert, Oriented x3, Cooperative HEENT: Atraumatic, PERRLA, EOMI, Normocephalic Neck: Supple, No JVD, Negative Carotid Bruits Lungs: Clear to auscultation, Normal air movement Cardiovascular: Regular Rhythm, Normal S1, Normal S2, No murmurs, Bradycardic Abdomen: Bowel Sounds Present, Soft, Non Tender, Non-Distended Extremities: No clubbing, No cyanosis, No edema, Capillary Refill Less than 3 Seconds Skin: No rashes, No breakdown Musculoskeletal: No Tenderness to Palpation of Joints or Extremities Neurological: Cranial nerves II-XII grossly intact, Neuro grossly intact Psych/Mental Status: Normal Affect, Appropriate Laboratory Results 11/28/19 12:33: WBC 7.7, RBC 5.17, Hgb 15.5, Hct 44.5, MCV 86.1, MCH 30.0, MCHC 34.8, RDW Std Deviation 37.5, RDW Coeff of Khloe 12.0, Plt Count 223, MPV 8.0, Immature Gran % (Auto) 0.300, Neut % (Auto) 79.3 H, Lymph % (Auto) 12.8 L, [place] % (Auto) 5.0, Eos % (Auto) 2.2, Baso % (Auto) 0.4, Absolute Neuts (auto) 6.1, Absolute Lymphs (auto) 0.99, Nucleated RBC % 0 11/28/19 12:33: D-Dimer Quant (PE/DVT) 0.85 H* 11/28/19 12:33: Sodium 140, Potassium 4.3, Chloride 109 H, Carbon Dioxide 26.0, Anion Gap 5, BUN 19 H, Creatinine 1.28, Estim Creat Clear Calc 51.95, Est GFR ( MDRD) Af Amer 71, Est GFR (MDRD) Non-Af 59 L, BUN/Creatinine Ratio 14.8, Glucose 106, Calcium 9.0, Troponin I < 0.015 11/28/19 12:33: B-Natriuretic Peptide 59.8 11/28/19 16:33: Troponin I < 0.015 11/28/19 19:20: Troponin I < 0.015 11/29/19 05:00: WBC 7.6, RBC 4.99, Hgb 15.0, Hct 43.3, MCV 86.8, MCH 30.1, MCHC 34.6, RDW Std Deviation 38.1, RDW Coeff of Khloe 12.1, Plt Count 202, MPV 7.9, Immature Gran % (Auto) 0.700, Neut % (Auto) 76.1 H, Lymph % (Auto) 12.6 L, [place] % (Auto) 7.3, Eos % (Auto) 2.8, Baso % (Auto) 0.5, Absolute Neuts (auto) 5.8, Absolute Lymphs (auto) 0.96, Nucleated RBC % 0 11/29/19 05:00: Sodium 137, Potassium 4.1, Chloride 105, Carbon Dioxide 30.0, Anion Gap 2 L, BUN 20 H, Creatinine 1.06, Estim Creat Clear Calc 62.74, Est GFR (MDRD) Af Amer 89, Est GFR (MDRD) Non-Af 73, BUN/Creatinine Ratio 18.9, Glucose 106, Calcium 8.4 L, Magnesium 2.0, Troponin I < 0.015 11/29/19 05:00: Triglycerides 84, Cholesterol 107, LDL Cholesterol 64, VLDL Cholesterol 17, HDL Cholesterol 26 L Current Medications Amlodipine Besylate (Norvasc) 10 mg PO DAILY KATELYN Last Admin: 11/29/19 11:11 Dose: 10 mg Documented by: Aspirin (Ecotrin) 81 mg PO DAILY@0800 [facility] Last Admin: 11/29/19 06:19 Dose: 81 mg Documented by: Glucagon () 1 mg IM .X1 PRN PRN Reason: Hypoglycemia Hydralazine HCl (Apresoline Iv) 10 mg IV Q6H PRN PRN PRN Reason: BLOOD PRESSURE ELEVATION Sodium Chloride () 1,000 mls @ 15 mls/hr IV .Q48H KATELYN Last Admin: 11/29/19 11:12 Dose: 15 mls/hr Documented by: Dextrose (Dextrose 10%-Water) 250 mls @ 999 mls/hr IV .Q16M PRN; Protocol PRN Reason: HYPOGLYCEMIA Sodium Chloride () 1,000 mls @ 15 mls/hr IV .Q48H KATELYN Morphine Sulfate () 2 mg IV Q4H PRN PRN PRN Reason: Pain Score 1-10/10 Last Admin: 11/29/19 07:04 Dose: 2 mg Documented by: Nitroglycerin (Nitrostat) 0.4 mg SUBLINGUAL Q5M PRN PRN Reason: CARDIAC/CHEST PAIN Last Admin: 11/29/19 03:29 Dose: 0.4 mg Documented by: Ondansetron HCl (Zofran) 4 mg IV Q8H PRN PRN PRN Reason: NAUSEA/VOMITING Last Admin: 11/29/19 03:46 Dose: 4 mg Documented by: Sodium Chloride () 10 - 40 ml IV UD PRN PRN Reason: SALINE FLUSH Last Admin: 11/29/19 07:05 Dose: 20 ml Documented by: Medical Necessity - Tobacco Use Smoking Status: Never smoker Tobacco Use: Non-smoker Assessment/Plan All Active Problems Left ureteral calculus (Acute) acute kidney injury (Acute) Left sided pyelonephritis (Acute) Hydronephrosis, left (Acute) 1. Chest pain- ACS ruled out. Stress test negative. Cardiology consulted. Patient underwent cardiac catheterization which showed normal coronary arteries. Echocardiogram demonstrated an EF of 65%, stage I diastolic dysfunction. CTA without PE. Symptoms possibly due to uncontrolled blood pressure. 2. Bradycardia- unclear etiology. Not on any rate limiting medications. Cardiology following as noted above. 3. Elevated blood pressure without history of hypertension-initiated on Hyzaar 50/12.5 mg daily. Blood pressure improved. Hydralazine as needed for systolic blood pressure greater than 160. 4. Possible HERBERTH-patient reports significant snoring at nighttime and also g asping for air intermittently. Recommend outpatient follow-up for sleep study. DVT prophylaxis-Lovenox subcu This patient was seen by JUVENAL Young under the supervision of Dr. Vidal. <TerrisharronTess - Last Filed: 11/29/19 15:24> - Physical Exam Vitals/I&O's: Vital Signs Temp Pulse Resp BP Pulse Ox 98.1 F 54 L 14 127/66 H 95 11/29/19 13:44 11/29/19 15:15 11/29/19 15:15 11/29/19 15:15 11/29/19 15:15 Oxygen Flow Rate (L/min) 2 Oxygen Delivery Method Room Air Weight: 202 lb Body Mass Index (BMI) 30.7 Intake and Output for Last 24 Hours 11/27/19 11/28/19 11/29/19 23:59 23:59 23:59 Intake Total 0 / 0 37.75 / 37.75 Balance 0 / 0 37.75 / 37.75 Laboratory Results 11/28/19 16:33: Troponin I < 0.015 11/28/19 19:20: Troponin I < 0.015 11/29/19 05:00: WBC 7.6, RBC 4.99, Hgb 15.0, Hct 43.3, MCV 86.8, MCH 30.1, MCHC 34.6, RDW Std Deviation 38.1, RDW Coeff of Khloe 12.1, Plt Count 202, MPV 7.9, Immature Gran % (Auto) 0.700, Neut % (Auto) 76.1 H, Lymph % (Auto) 12.6 L, [place] % (Auto) 7.3, Eos % (Auto) 2.8, Baso % (Auto) 0.5, Absolute Neuts (auto) 5.8, Absolute Lymphs (auto) 0.96, Nucleated RBC % 0 11/29/19 05:00: Sodium 137, Potassium 4.1, Chloride 105, Carbon Dioxide 30.0, Anion Gap 2 L, BUN 20 H, Creatinine 1.06, Estim Creat Clear Calc 62.74, Est GFR (MDRD) Af Amer 89, Est GFR (MDRD) Non-Af 73, BUN/Creatinine Ratio 18.9, Glucose 106, Calcium 8.4 L, Magnesium 2.0, Troponin I < 0.015 11/29/19 05:00: Triglycerides 84, Cholesterol 107, LDL Cholesterol 64, VLDL Cholesterol 17, HDL Cholesterol 26 L Current Medications Aspirin (Ecotrin) 81 mg PO DAILY@0800 [facility] Last Admin: 11/29/19 06:19 Dose: 81 mg Documented by: Glucagon () 1 mg IM .X1 PRN PRN Reason: Hypoglycemia Hydralazine HCl (Apresoline Iv) 10 mg IV Q6H PRN PRN PRN Reason: BLOOD PRESSURE ELEVATION Hydrochlorothiazide () 12.5 mg PO DAILY [facility] Sodium Chloride () 1,000 mls @ 15 mls/hr IV .Q48H [facility] Last Infusion: 11/29/19 12:23 Dose: Infused Documented by: Dextrose (Dextrose 10%-Water) 250 mls @ 999 mls/hr IV .Q16M PRN; Protocol PRN Reason: HYPOGLYCEMIA Sodium Chloride () 1,000 mls @ 15 mls/hr IV .Q48H [facility] Last Admin: 11/29/19 12:23 Dose: Not Given Documented by: Labetalol HCl (Trandate) 5 mg IV X1 PRN PRN Reason: SBP > 160 prior to sheath pull Losartan Potassium (Cozaar) 50 mg PO DAILY [facility] Morphine Sulfate () 2 mg IV Q4H PRN PRN PRN Reason: Pain Score 1-10/10 Last Admin: 11/29/19 07:04 Dose: 2 mg Documented by: Nitroglycerin (Nitrostat) 0.4 mg SUBLINGUAL Q5M PRN PRN Reason: CARDIAC/CHEST PAIN Last Admin: 11/29/19 03:29 Dose: 0.4 mg Documented by: Ondansetron HCl (Zofran) 4 mg IV Q8H PRN PRN PRN Reason: NAUSEA/VOMITING Last Admin: 11/29/19 03:46 Dose: 4 mg Documented by: Sodium Chloride () 10 - 40 ml IV UD PRN PRN Reason: SALINE FLUSH Last Admin: 11/29/19 07:05 Dose: 20 ml Documented by: Assessment/Plan The patient is a 69 year old M admitted with a complaint of chest pain that was pressure like. Symptoms have been going on for about 2 weeks was subsequently worsen so he decided to come in. He had no history of cardiovascular disease. On admission he was found to have elevated blood pressure though he denied any history of pretension. He was also noted to be mildly bradycardic. He was admitted to manage for chest pain rule out ACS and elevated blood pressure without previous diagnosis of hypertension. He had a stress test which was negative. However he still complained of persistent chest pain which was pressure-like and relieved by sublingual nitro and aspirin. Cardiology was therefore consulted and he had a cardiac cath which was negative. 2D echo done showed EF of 65% with stage I diastolic dysfunction. He had also had a CT on admission which was negative for PE. His blood pressure remained poorly controlled and symptoms were therefore thought to be due to uncontrolled blood pressure. Patient was initially started on amlodipine but this was switched to losartan hydrochlorothiazide after review with cardiology. Patient seen and examined. He had no complaints. chest pain did recur during the night, and was relieved by SL nitroglycerin. Review of systems was otherwise negative. Labs and vitals reviewed. Home medications reviewed and reconciled. o/e: Vital Signs Height 5 ft 8 in Weight: 202 lb Weight in Pounds 202.0 lbs Pulse Ox 98 Temperature 98.1 F Pulse Rate 56 Respiratory Rate 15 Blood Pressure [BP] 131/71 Blood Pressure 142/66 Blood Pressure Position [BP] Semi-Fowlers Blood Pressure Position Sitting General: Alert, Oriented x3, Cooperative, No apparent distress HEENT: Atraumatic, PERRLA, EOMI, Normocephalic Oral: Moist Mucosa Neck: Supple, No JVD, Negative Carotid Bruits Lungs: Clear to auscultation, Normal air movement, No rhonchi, No wheeze, No rales Cardiovascular: Regular Rhythm, Normal S1, Normal S2, No murmurs, Bradycardic Abdomen: Bowel Sounds Present, Soft, Non Tender Extremities: No clubbing, No cyanosis, No edema, Capillary Refill Less than 3 Seconds Skin: No rashes, No breakdown Musculoskeletal: No Tenderness to Palpation of Joints or Extremities, - - lipoma on right side of chest Lymphatic: No Cervical, Supraclavicular, or Inguinal Adenopathy Neurological: Cranial nerves II-XII grossly intact, Neuro grossly intact, Motor Exam 5/5 strength throughout Psych/Mental Status: Normal Affect, Appropriate, Alert and oriented to time, place, person, mood and affect Patient was noted to be bradycardic down to a low of 39 in the middle of the night as though his heart rate remained mainly in the 50s. EKG showed sinus bradycardia. Stress test done was negative. Cardiac cath was negative. Patient is to be discharged home on p.o. losartan hydrochlorothiazide. He is to monitor his blood pressure at home and follow-up with us primary care doctor within 1 week for BP meds to be adjusted as needed. Heart rate was in the 50s at time of discharge and patient was stable. He is also to follow-up with his primary care doctor and cardiology for asymptomatic bradycardia to be evaluated. Rest as per JUVENAL Young's notes which I reviewed and endorsed. Code Visit OBSV E&M: 75783 Subsequent observation care L2
--- NOTE | 2019-11-29 12:06 | CL.D_ITS ---
Patient Name: YU RECINOS Study Date: 11/29/2019 Performing: Lalito Bush MD Ht: 68.11 inches 173 cm : 1950 Wt: 202.83 lbs 92 kg Age: 69 Gender: male BSA: 2.06 PROCEDURE(S) PERFORMED [id number] CLINICAL PROFILE AND INDICATIONS Indications: Suspected CAD Heart Failure: None Stress/Imaging Date: 11/29/2019Stress Test with SPECT MPI: Negative Angina Classification Anginal Classification w/in 2 Weeks: CCS IV CAD Presentations: Unstable angina. 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 Manual sheath removal. DESCRIPTION OF PROCEDURE The patient arrived to the procedure lab. The risks and benefits of the procedure as well as a full d escription of our services here and current unavailability of surgical backup were fully explained to the patient and/or their significant other prior to the catheterization. The Timeout was completed, verifying the correct patient and procedure. The patient's procedural site was prepped and draped in the usual fashion. Local anesthetic was given subcutaneously to right groin region with Lidocaine 2%. Using a modified Seldinger technique, arterial access was obtained via the right femoral artery, a 4 Fr sheath was inserted Left Coronary Artery selective angiography was performed in multiple views us ing a 4 Fr. JL5 catheter. Right Coronary Artery selective angiography was then performed in multiple views using a 4 Fr. 3DRC catheter. Left Ventriculography was performed in [place] projection using a 4 Fr . Pigtail catheter. LV to AO pullback pressures were then recorded.The arterial sheath was pulled and manual compression applied until hemostasis is achieved. CORONARY ANGIOGRAPHY DOMINANCE: Co- Dominant LEFT HEART ASSESSMENT Left Ventricular Ejection Fraction: by LV Gram 65 % Normal LV wall motion Normal Left Ventricular systolic function LVEDP: 21 mmHg LEFT MAIN: Angiographically normal, Angiographically normal LEFT ANTERIOR DESCENDING ARTERY: Angiographically normal, Angiographically normal CIRCUMFLEX ARTERY: Angiographically normal, Angiographically normal RIGHT CORONARY ARTERY: Angiographically normal Angiographically normal COMPLICATIONS No Complications PROCEDURE MEDICATIONS Oxygen: 2 L/min via nasal cannula Atropine 1mg/10ml 0.25 amp @ 11/29/2019 12:02:07 Nitro 300 mcg IC 11/29/2019 11:54:31 IV Bolus: .9 NaCl ml total 11/29/2019 12:00:46 SUMMARY OF HEMODYNAMIC DATA Time AIR REST ECG 11:29:36 AO 185/87 (119) SA 11:47:33 LV 178/-2, 11 11:53:37 LV 172/-4, 16 11:53:43 LVp 167/-4, 21 11:53:49 AOp 179/73 (109) 11:53:54 Signed By Lalito Bush MD On 11/29/2019 12:05:47 Lalito Bush MD
--- NOTE | 2019-11-29 13:19 | DCINST_ITS ---
- Discharge Diagnoses Current Active Problems: Current Active and Chronic Problems (Last Updated 11/29/19 @ 12:11 by Desirae Ni) History of left heart catheterization (Chronic 11/29/19) Normal coronary arteries Normal LV size, wall motion,and systolic function LVEF: by LV gram 65 % Elevated Left Ventricular End Diastolic Pressure. 11/29/2019 You will use the following diet at home:: No restrictions Discharge Activity: Return to Normal Activity Call your doctor if you observe: Shortness of breath, Dizziness, Fainting spells, Chest pain Allergies/Adverse Reactions: Allergies No Known Allergies Allergy (Verified 11/28/19 12:14) Medications to take at Discharge Ibuprofen 400 - 600 mg PO DAILY PRN PRN 11/28/19 Losartan/Hydrochlorothiazide [Hyzaar 50-12.5 Tablet] 1 ea PO DAILY #60 tab 11/29/19 The following prescriptions were given: Losartan/Hydrochlorothiazide [Hyzaar 50-12.5 Tablet] 1 ea PO DAILY #60 tab Prescription Printed Primary Care Physician: Paola Bourgeois [Primary Care Provider] - Please follow up with your Primary Care Physician in: PCP in 1 week Test Results: Test results from this visit will be discussed in further detail at your follow- up appointment, if applicable. Proposed Discharge Date: 11/29/19
--- NOTE | 2019-11-29 13:21 | PCM.DC.SUM ---
<Nat Sim - Last Filed: 11/29/19 13:25> Discharge Date and Diagnosis Date of Admission: 11/28/19 Date of Discharge: 11/29/19 - Primary Discharge Diagnosis 1. Chest pain- ACS ruled out. Suspect secondary to uncontrolled blood pressure. 2. Bradycardia 3. Elevated blood pressure without history of hypertension 4. Possible HERBERTH - Secondary Discharge Diagnosis Chronic Problems History of left heart catheterization (Chronic 11/29/19) Normal coronary arteries Normal LV size, wall motion,and systolic function LVEF: by LV gram 65 % Elevated Left Ventricular End Diastolic Pressure. 11/29/2019 Hypertension (Chronic) Hospital Course and Treatment Imaging Results: Diagnostic Data Chest X-Ray 11/28/19 12:30 IMPRESSION: Normal x-ray examination of the chest. Electronically Signed: Didier Velázquez MD at 13:22 EST Tel , Service support , Chest CTA 11/28/19 13:42 IMPRESSION: No evidence of pulmonary embolism. 2.9 cm x 3.9 cm x 3.3 cm well-defined soft tissue density in the subcutaneous tissues overlying the medial aspect of the right upper chest wall. Electronically Signed: Sam Fletcher at 14:45 EST , Service support , Dr. Bush- Cardiology Operations: None Procedures: 2-D Echocardiogram, Cardiac catheterization, Stress test Summary of Care Provided: The patient is a 69 year old M admitted 11/28/2019 due to chest pressure. 1. Chest pain- ACS ruled out. Stress test negative. Cardiology consulted. Patient underwent cardiac catheterization which showed normal coronary arteries. Echocardiogram demonstrated an EF of 65%, stage I diastolic dysfunction. CTA without PE. Symptoms possibly due to uncontrolled blood pressure. Follow-up with primary care physician in 1 week. 2. Bradycardia- unclear etiology. Not on any rate limiting medications. Patient is asymptomatic. Recommend follow-up with cardiology if patient becomes symptomatic. Avoid rate limiting medications. 3. Elevated blood pressure without history of hypertension-initiated on Hyzaar 50/12.5 mg daily. Blood pressure improved. Continue monitoring as outpatient. 4. Possible HERBERTH-patient reports significant snoring at nighttime and also gasping for air intermittently. Recommend outpatient follow-up for sleep study. General: Alert, Oriented x3, Cooperative HEENT: Atraumatic, PERRLA, EOMI, Normocephalic Neck: Supple, No JVD, Negative Carotid Bruits Lungs: Clear to auscultation, Normal air movement Cardiovascular: Regular Rhythm, Normal S1, Normal S2, No murmurs, Bradycardic Abdomen: Bowel Sounds Present, Soft, Non Tender, Non-Distended Extremities: No clubbing, No cyanosis, No edema, Capillary Refill Less than 3 Seconds Skin: No rashes, No breakdown Musculoskeletal: No Tenderness to Palpation of Joints or Extremities Neurological: Cranial nerves II-XII grossly intact, Neuro grossly intact Psych/Mental Status: Normal Affect, Appropriate Patient seen and examined prior to discharge. Physical assessment as noted above. Patient is stable for discharge with follow up recommendations as noted above. This patient was seen by JUVENAL Young under the supervision of Dr. Vidal. - Physical Exam Vitals/I&O's: Vital Signs Temp Pulse Resp BP Pulse Ox 98.8 F 53 L 14 122/69 H 94 11/29/19 10:29 11/29/19 13:15 11/29/19 13:15 11/29/19 13:15 11/29/19 13:15 Oxygen Flow Rate (L/min) 2 Oxygen Delivery Method Room Air Weight: 202 lb Body Mass Index (BMI) 30.7 Intake and Output for Last 24 Hours 11/27/19 11/28/19 11/29/19 23:59 23:59 23:59 Intake Total 0 / 0 37.75 / 37.75 Balance 0 / 0 37.75 / 37.75 Laboratory Results 11/28/19 12:33: D-Dimer Quant (PE/DVT) 0.85 H* 11/28/19 16:33: Troponin I < 0.015 11/28/19 19:20: Troponin I < 0.015 11/29/19 05:00: WBC 7.6, RBC 4.99, Hgb 15.0, Hct 43.3, MCV 86.8, MCH 30.1, MCHC 34.6, RDW Std Deviation 38.1, RDW Coeff of Khloe 12.1, Plt Count 202, MPV 7.9, Immature Gran % (Auto) 0.700, Neut % (Auto) 76.1 H, Lymph % (Auto) 12.6 L, [place] % (Auto) 7.3, Eos % (Auto) 2.8, Baso % (Auto) 0.5, Absolute Neuts (auto) 5.8, Absolute Lymphs (auto) 0.96, Nucleated RBC % 0 11/29/19 05:00: Sodium 137, Potassium 4.1, Chloride 105, Carbon Dioxide 30.0, Anion Gap 2 L, BUN 20 H, Creatinine 1.06, Estim Creat Clear Calc 62.74, Est GFR (MDRD) Af Amer 89, Est GFR (MDRD) Non-Af 73, BUN/Creatinine Ratio 18.9, Glucose 106, Calcium 8.4 L, Magnesium 2.0, Troponin I < 0.015 11/29/19 05:00: Triglycerides 84, Cholesterol 107, LDL Cholesterol 64, VLDL Cholesterol 17, HDL Cholesterol 26 L Current Medications Aspirin (Ecotrin) 81 mg PO DAILY@0800 [facility] Last Admin: 11/29/19 06:19 Dose: 81 mg Documented by: Glucagon () 1 mg IM .X1 PRN PRN Reason: Hypoglycemia Hydralazine HCl (Apresoline Iv) 10 mg IV Q6H PRN PRN PRN Reason: BLOOD PRESSURE ELEVATION Hydrochlorothiazide () 12.5 mg PO DAILY [facility] Sodium Chloride () 1,000 mls @ 15 mls/hr IV .Q48H [facility] Last Infusion: 11/29/19 12:23 Dose: Infused Documented by: Dextrose (Dextrose 10%-Water) 250 mls @ 999 mls/hr IV .Q16M PRN; Protocol PRN Reason: HYPOGLYCEMIA Sodium Chloride () 1,000 mls @ 15 mls/hr IV .Q48H [facility] Last Admin: 11/29/19 12:23 Dose: Not Given Documented by: Labetalol HCl (Trandate) 5 mg IV X1 PRN PRN Reason: SBP > 160 prior to sheath pull Losartan Potassium (Cozaar) 50 mg PO DAILY [facility] Morphine Sulfate () 2 mg IV Q4H PRN PRN PRN Reason: Pain Score 1-10/10 Last Admin: 11/29/19 07:04 Dose: 2 mg Documented by: Nitroglycerin (Nitrostat) 0.4 mg SUBLINGUAL Q5M PRN PRN Reason: CARDIAC/CHEST PAIN Last Admin: 11/29/19 03:29 Dose: 0.4 mg Documented by: Ondansetron HCl (Zofran) 4 mg IV Q8H PRN PRN PRN Reason: NAUSEA/VOMITING Last Admin: 11/29/19 03:46 Dose: 4 mg Documented by: Sodium Chloride () 10 - 40 ml IV UD PRN PRN Reason: SALINE FLUSH Last Admin: 11/29/19 07:05 Dose: 20 ml Documented by: Discharge Diet: No Restrictions Discharge Activity: Return to Normal Activity Call your doctor if you observe: Shortness of breath, Dizziness, Fainting spells, Chest pain Home Medications: Medications to take at Discharge Ibuprofen 400 - 600 mg PO DAILY PRN PRN 11/28/19 Losartan/Hydrochlorothiazide [Hyzaar 50-12.5 Tablet] 1 ea PO DAILY #60 tab 11/29/19 Following Prescrptions Were Given to Patient: Losartan/Hydrochlorothiazide [Hyzaar 50-12.5 Tablet] 1 ea PO DAILY #60 tab Primary Care Physician: Paola Bourgeois [Primary Care Provider] - Please follow up with your Primary Care Physician in: PCP in 1 week Disposition: Home Minutes spent on discharge:: 35 Patient Condition:: Stable Medical Necessity - Tobacco Use Smoking Status: Never smoker Tobacco Use: Non-smoker Meaningful Use Info Meaningful Use Diagnoses (Choose all that apply): None applicable <Tess Vidal - Last Filed: 11/29/19 14:27> Discharge Date and Diagnosis - Secondary Discharge Diagnosis Chronic Problems History of left heart catheterization (Chronic 11/29/19) Normal coronary arteries Normal LV size, wall motion,and systolic function LVEF: by LV gram 65 % Elevated Left Ventricular End Diastolic Pressure. 11/29/2019 Hypertension (Chronic) Hospital Course and Treatment Imaging Results: 11/29/19 05:55 Echo Complete [ECHO] AM (NON MEDS) Nuclear Stress Test - Chemical [NM] AM (NON MEDS) Summary of Care Provided: Patient seen by Nat SANFORD under my supervision The patient is a 69 year old M admitted with a complaint of chest pain that was pressure like. Symptoms have been going on for about 2 weeks was subsequently worsen so he decided to come in. He had no history of cardiovascular disease. On admission he was found to have elevated blood pressure though he denied any history of pretension. He was also noted to be mildly bradycardic. He was admitted to manage for chest pain rule out ACS and elevated blood pressure without previous diagnosis of hypertension. He had a stress test which was negative. However he still complained of persistent chest pain which was pressure-like and relieved by sublingual nitro and aspirin. Cardiology was therefore consulted and he had a cardiac cath which was negative. 2D echo done showed EF of 65% with stage I diastolic dysfunction. He had also had a CT on admission which was negative for PE. His blood pressure remained poorly controlled and symptoms were therefore thought to be due to uncontrolled blood pressure. Patient was initially started on amlodipine but this was switched to losartan hydrochlorothiazide after review with cardiology. Patient seen and examined prior to discharge. He had no complaints. chest pain did recur during the night, and was relieved by SL nitroglycerin. Review of systems was otherwise negative. Labs and vitals reviewed. Home medications reviewed and reconciled. o/e: Vital Signs Height 5 ft 8 in Weight: 202 lb Weight in Pounds 202.0 lbs Pulse Ox 98 Temperature 98.1 F Pulse Rate 56 Respiratory Rate 15 Blood Pressure [BP] 131/71 Blood Pressure 142/66 Blood Pressure Position [BP] Semi-Fowlers Blood Pressure Position Sitting []General: Alert, Oriented x3, Cooperative, No apparent distress HEENT: Atraumatic, PERRLA, EOMI, Normocephalic Oral: Moist Mucosa Neck: Supple, No JVD, Negative Carotid Bruits Lungs: Clear to auscultation, Normal air movement, No rhonchi, No wheeze, No rales Cardiovascular: Regular Rhythm, Normal S1, Normal S2, No murmurs, Bradycardic Abdomen: Bowel Sounds Present, Soft, Non Tender Extremities: No clubbing, No cyanosis, No edema, Capillary Refill Less than 3 Seconds Skin: No rashes, No breakdown Musculoskeletal: No Tenderness to Palpation of Joints or Extremities, - - lipoma on right side of chest Lymphatic: No Cervical, Supraclavicular, or Inguinal Adenopathy Neurological: Cranial nerves II-XII grossly intact, Neuro grossly intact, Motor Exam 5/5 strength throughout Psych/Mental Status: Normal Affect, Appropriate, Alert and oriented to time, place, person, mood and affect Patient was noted to be bradycardic down to a low of 39 in the middle of the night as though his heart rate remained mainly in the 50s. EKG showed sinus bradycardia. Stress test done was negative. Cardiac cath was negative. Patient is to be discharged home on p.o. losartan hydrochlorothiazide. He is to monitor his blood pressure at home and follow-up with us primary care doctor within 1 week for BP meds to be adjusted as needed. Heart rate was in the 50s at time of discharge and patient was stable. He is also to follow-up with his primary care doctor and cardiology for asymptomatic bradycardia to be evaluated. Rest as per JUVENAL Young's notes which I reviewed and endorsed. - Physical Exam Vitals/I&O's: Vital Signs Temp Pulse Resp BP Pulse Ox 98.1 F 56 L 16 142/75 H 95 11/29/19 13:44 11/29/19 13:44 11/29/19 13:44 11/29/19 13:44 11/29/19 13:44 Oxygen Flow Rate (L/min) 2 Oxygen Delivery Method Room Air Weight: 202 lb Body Mass Index (BMI) 30.7 Intake and Output for Last 24 Hours 11/27/19 11/28/19 11/29/19 23:59 23:59 23:59 Intake Total 0 / 0 37.75 / 37.75 Balance 0 / 0 37.75 / 37.75 Laboratory Results 11/28/19 16:33: Troponin I < 0.015 11/28/19 19:20: Troponin I < 0.015 11/29/19 05:00: WBC 7.6, RBC 4.99, Hgb 15.0, Hct 43.3, MCV 86.8, MCH 30.1, MCHC 34.6, RDW Std Deviation 38.1, RDW Coeff of Khloe 12.1, Plt Count 202, MPV 7.9, Immature Gran % (Auto) 0.700, Neut % (Auto) 76.1 H, Lymph % (Auto) 12.6 L, [place] % (Auto) 7.3, Eos % (Auto) 2.8, Baso % (Auto) 0.5, Absolute Neuts (auto) 5.8, Absolute Lymphs (auto) 0.96, Nucleated RBC % 0 11/29/19 05:00: Sodium 137, Potassium 4.1, Chloride 105, Carbon Dioxide 30.0, Anion Gap 2 L, BUN 20 H, Creatinine 1.06, Estim Creat Clear Calc 62.74, Est GFR (MDRD) Af Amer 89, Est GFR (MDRD) Non-Af 73, BUN/Creatinine Ratio 18.9, Glucose 106, Calcium 8.4 L, Magnesium 2.0, Troponin I < 0.015 11/29/19 05:00: Triglycerides 84, Cholesterol 107, LDL Cholesterol 64, VLDL Cholesterol 17, HDL Cholesterol 26 L Current Medications Aspirin (Ecotrin) 81 mg PO DAILY@0800 [facility] Last Admin: 11/29/19 06:19 Dose: 81 mg Documented by: Glucagon () 1 mg IM .X1 PRN PRN Reason: Hypoglycemia Hydralazine HCl (Apresoline Iv) 10 mg IV Q6H PRN PRN PRN Reason: BLOOD PRESSURE ELEVATION Hydrochlorothiazide () 12.5 mg PO DAILY [facility] Sodium Chloride () 1,000 mls @ 15 mls/hr IV .Q48H [facility] Last Infusion: 11/29/19 12:23 Dose: Infused Documented by: Dextrose (Dextrose 10%-Water) 250 mls @ 999 mls/hr IV .Q16M PRN; Protocol PRN Reason: HYPOGLYCEMIA Sodium Chloride () 1,000 mls @ 15 mls/hr IV .Q48H [facility] Last Admin: 11/29/19 12:23 Dose: Not Given Documented by: Labetalol HCl (Trandate) 5 mg IV X1 PRN PRN Reason: SBP > 160 prior to sheath pull Losartan Potassium (Cozaar) 50 mg PO DAILY [facility] Morphine Sulfate () 2 mg IV Q4H PRN PRN PRN Reason: Pain Score 1-10/10 Last Admin: 11/29/19 07:04 Dose: 2 mg Documented by: Nitroglycerin (Nitrostat) 0.4 mg SUBLINGUAL Q5M PRN PRN Reason: CARDIAC/CHEST PAIN Last Admin: 11/29/19 03:29 Dose: 0.4 mg Documented by: Ondansetron HCl (Zofran) 4 mg IV Q8H PRN PRN PRN Reason: NAUSEA/VOMITING Last Admin: 11/29/19 03:46 Dose: 4 mg Documented by: Sodium Chloride () 10 - 40 ml IV UD PRN PRN Reason: SALINE FLUSH Last Admin: 11/29/19 07:05 Dose: 20 ml Documented by: Code Visit OBSV E&M: [id number] Observation care discharge
--- NOTE | 2019-11-29 14:32 | PHA.DC.MC ---
Pharmacy Service has performed discharge medication reconciliation and counseling for this patient. 1. LOSARTAN/HYDROCHLOROTHIAZIDE 50MG/12.5MG PO DAILY The patient's discharge medication list was reviewed for discrepancies and discrepancies were resolved. Home Medications Ibuprofen 400 - 600 mg PO DAILY PRN PRN 11/28/19 Losartan/Hydrochlorothiazide [Hyzaar 50-12.5 Tablet] 1 ea PO DAILY #60 tab 11/29/19 The patient was counseled on the following discharge medications and changes in medications for homegoing were reviewed. The Reason for Use, instructions for use, and potential side effects were reviewed for all new medications. The patient's questions regarding all of their medications were answered. The patient was able to verbally demonstrate an understanding of their discharge medications.
== END 2019-11-29 13:20 | disposition home or self-care (01) ==
LOC: ED 13:04 → PCU 15:28
PROVIDERS: Family Medicine; Admitting Provider Student in an Organized Health Care Education/Training Program; Emergency Provider Emergency Medicine; PCP Family Medicine; Visit Provider Student in an Organized Health Care Education/Training Program
DX: R07.89 Other chest pain (principal); R03.0 Elevated blood-pressure reading, without diagnosis of hypertension; R00.1 Bradycardia, unspecified; R94.31 Abnormal electrocardiogram [ECG] [EKG]; I08.1 Rheumatic disorders of both mitral and tricuspid valves; R06.02 Shortness of breath
CPT/HCPCS: 36415; 71045; 71275; 78452; 80048; 80061; 83735; 83880; 84484; 85025; 85379; 93005; 93017; 93306; 93458; 96374; 96376; 99218; 99285; 99406; A9500; J7030; Q9967; A4216; C1769; C1894; G0378; J2405; J2785

== ENCOUNTER → 2020-12-14 09:23 | Outpatient (CLI) | payer SELFPAY ==
[2019-11-28 15:44] VITALS: BMI 30.7
[2020-12-14 12:39] LABS: Anion Gap 8 (5-15); BUN 21 mg/dL (7-18); BUN/Creat Ratio 15.1 RATIO (10-20); Calcium,Total 8.7 mg/dL (8.5-10.1); Chloride 101 mmol/L (98-107); Cholesterol 129 mg/dL (200); Creatinine, Serum 1.39 mg/dL (0.70-1.30); EST Glomerular Filtration Rate 54 mL/min (>60); Est Glom Filt Rate - Afr Amer 65 mL/min (>60); Glucose 99 mg/dL (74-106); High Density Lipoprotein 35 mg/dL; Potassium 3.5 mmol/L (3.5-5.1); Sodium Level 139 mmol/L (136-145); Triglycerides 81 mg/dL; Very Low Density Lipoprotein 16 mg/dL (5-40)
== END ==
PROVIDERS: PCP Family Medicine; Referring Provider Family Medicine; Visit Provider Family Medicine
DX: E29.1 Testicular hypofunction (principal); I10 Essential (primary) hypertension
CPT/HCPCS: 36415; 80048; 80061; 84403

== ENCOUNTER 2021-03-07 22:21 | Emergency (ER) | payer SELFPAY ==
[2019-11-28 15:44] VITALS: BMI 30.7
[2021-03-07 22:21] VITALS: BP 175/88; PULSE 68; RESP 16; TEMP 35.6; O2SAT 96
[2021-03-07 22:22] VITALS: BP 175/88; PULSE 62; RESP 16; TEMP 35.6; O2SAT 95; BMI 32.9
--- NOTE | 2021-03-07 22:54 | CT_ITS ---
STUDY: CT ABDOMEN AND PELVIS WITH CONTRAST REASON FOR EXAM: Male, 70 years old. Abdominal Pain RADIATION DOSAGE (If Supplied By Facility): CTDIvol = ( 16.63 ) mGy, DLP = ( 1197.05 ) mGycm TECHNIQUE: Transaxial images were obtained from the dome of the diaphragm to the symphysis pubis without oral contrast. IV 100mL Isovue-300 was administered. Sagittal and coronal images were reconstructed. Individualized dose optimization techniques were used for this CT. COMPARISON: August 23, 2018 CT scan abdomen and pelvis, November 28, 2019 CT scan chest FINDINGS: The visualized lung bases are unremarkable. The visualized portions of the heart are within normal limits. There is a low attenuating cystic structure within the right hepatic lobe measuring 2.2 x 1.6 cm similar to prior study. Normal gallbladder and extrahepatic biliary system. The spleen measures 15.5 x 13.1 cm. This is relatively unchanged since prior study. Normal pancreas. Normal bilateral adrenal glands. There are multiple cysts right kidney without hydronephrosis. Partially visualized on prior study allowing for the lack of contrast on prior. There is left renal upper pole atrophy. There is a left renal cyst with benign features measuring 1.1 cm. There is no hydronephrosis. Within the distal stomach there is a focus of enhancing wall thickening, nondependent portion of the stomach. Images were 37 and appears masslike measuring 2.1 x 4 cm but more likely wall thickening on the coronal views. This appears to be continuous with a low attenuating exophytic mass extending from the wall of the stomach. Normal small intestine. There is mild to moderate stool in the colon. The appendix is visualized and appears normal. Normal abdominal aorta. Normal inferior vena cava. There is a mesenteric lymph node measuring 2.0 cm. This is the largest of several mesenteric lymph nodes as seen on prior study. Normal urinary bladder. There are prostatic calcifications. There is a left-sided fatty inguinal hernia. There is a grade 1 anterolisthesis of the level of L5-S1 with disc space narrowing and vacuum phenomenon and spondylosis and spondylolysis. There is neural foramina narrowing and mild central stenosis. There is mild disc space narrowing L5-S1. There is degenerative change of the SI joints. CT/Abdomen/Pelvis W IV Cont ONLY IMPRESSION: Enhancing wall thickening with mass within the distal stomach which is continuous with an gastric mass component best seen image #39 of the coronal views. This area may measure up to 10.3 x 6.2 cm. For which further evaluation with endoscopy is warranted. Consider possible focus of gastritis, atypia, gastric cancer, gastric leiomyoma could have this appearance. Moderate splenomegaly. Persistent atypical appearing mesenteric lymph nodes. [id number] constipation Bilateral renal cysts. Benign hepatic cyst. Electronically Signed: Adriana Hopson MD at 0:20 EDT Tel , Service support ,
--- NOTE | 2021-03-07 22:55 | EDS_ITS ---
HPI HPI - GI History of Present Illness Chief Complaint: Abd Pain Narrative Narrative: 70-year-old male presenting with abdominal pain. He states that he feels like he is bloated. He does feel like it is under his ribs bilaterally at times. He states that when he passes gas or burps his pain is improved. He is not having any vomiting. He denies constipation or diarrhea. He has not had fever or chills. He states that he is able to eat but is eating less due to feeling bloated. He denies urinary complaints. [facility] Medical History Hypertension Kidney stones Home Medications hydrochlorothiazide 12.5 mg PO DAILY 03/07/21 [History Last Taken Unknown] losartan 50 mg PO DAILY 03/07/21 [History Last Taken Unknown] meloxicam 15 mg PO DAILY 03/07/21 [History Last Taken Unknown] Allergy/AdvReac Type Severity Reaction Status Date / Time No Known Allergies Allergy Verified 11/28/19 12:14 Surgical History History of left heart catheterization (11/29/19) Social History Smoking Status: Never smoker [facility] ED Constitutional Constitutional ED: Denies chills, fever(s) or sweats Eyes Eyes: Denies blurry vision or change in vision ENT ENT ED: Denies ear pain, rhinorrhea or sore throat Cardiovascular Cardiovascular: Denies chest pain, palpitations or racing heartbeat Respiratory/Chest Respiratory/Chest: Denies cough, dyspnea or sputum Gastrointestinal Gastrointestinal: Reports abdominal pain; Denies constipation, diarrhea or vomiting Genitourinary Genitourinary ED: Denies dysuria, hematuria or urinary frequency Musculoskeletal Musculoskeletal: Denies arthralgias, myalgias or neck pain Integumentary Denies abscess, Abrasions or rash Neurologic Neurologic: Denies headache(s), paresthesias or weakness Psychiatric Psychiatric: Denies anxiety, depression, suicidal ideation or suicidal thoughts Endocrine Endocrinology: Denies polydipsia or polyuria EXAM Physical Exam Const Vital Signs: 03/07/21 22:21 03/07/21 22:22 Temperature 96.0 F L 96.0 F L Temperature Source Temporal Temporal Pulse Rate 68 62 Respiratory Rate 16 16 Blood Pressure 175/88 H 175/88 H Blood Pressure Mean 117 117 Pulse Ox 96 95 Oxygen Delivery Method Room Air Room Air Positive well nourished General Appearance ED: NAD; Negative for pallor HEENT Reports normocephalic, head/scalp atraumatic and moist mucous membranes normocephalic Eyes PERRL and EOMs intact bilaterally Neck no lymphadenopathy and supple Chest Wall inspection of chest normal and palpation of chest normal Resp normal respiratory effort and clear to auscultation bilaterally Auscultation: Negative for rales, rhonchi or wheezes Cardio regular rate and regular rhythm GI normal to inspection, nondistended, normoactive bowel sounds and non-distended Auscultation: normoactive bowel sounds Palpation: soft Narrative: Deferred Back/Spine no CVA tenderness Extremity normal to inspection General Extremety ED: Yes edema and tenderness General Extremity: edema Neuro oriented x3 and CN's II-XII intact bilaterally Sensorium / Orientation: alert Motor Exam: strength 5/5 throughout Psych mental status grossly normal Attitude: No agitated Skin no rashes or lesions noted and no wounds General Skin Exam: Negative for jaundice or pallor MDM MDM MDM Narrative Medical decision making narrative: Patient presenting with abdominal fullness which appears to improve when he belches or passes flatus. This keeps coming and going in waves. He complains of difficulty eating full meals secondary to the discomfort. Today he had lab work drawn which shows no leukocytosis, hemoglobin hematocrit are stable, platelets normal. Renal function is near baseline. Electrolytes are normal. Urinalysis is negative for infection. CT of the abdomen pelvis does show a 10.3 X 6.2 area of mass in the stomach. There is also some surrounding wall thickening. There are also atypical mesenteric lymph nodes. Patient also was found to have splenomegaly. Given patient has normal vital signs and normal lab work I did speak with Dr. Valdovinos. Neither of us felt he needed to stay in the hospital but did need a follow-up upper endoscopy. Dr. Valdovinos states that she can get him in office tomorrow. She did take his name. He is to call the office in the morning to be seen tomorrow. She will set him up with upper endoscopy. Impression: 1. Gastric mass 2. Constipation 3. Splenomegaly 4. Hepatic cyst Lab Data Labs: Laboratory Results - last 24 hr 03/07/21 03/07/21 03/07/21 23:15 23:15 23:36 WBC 8.5 RBC 4.70 Hgb 14.2 Hct 41.6 MCV 88.5 MCH 30.2 MCHC 34.1 RDW Std Deviation 40.8 RDW Coeff of Khloe 12.6 Plt Count 233 MPV 8.8 Immature Gran % (Auto) 0.500 Neut % (Auto) 76.2 H Lymph % (Auto) 14.6 L [place] % (Auto) 5.9 Eos % (Auto) 2.7 Baso % (Auto) 0.1 Absolute Neuts (auto) 6.5 Absolute Lymphs (auto) 1.24 Nucleated RBC % 0 Sodium 139 Potassium 4.2 Chloride 105 Carbon Dioxide 32.0 Anion Gap 2 L BUN 21 H Creatinine 1.38 H Estim Creat Clear Calc 47.50 Est GFR (MDRD) Af Amer 65 Est GFR (MDRD) Non-Af 54 L BUN/Creatinine Ratio 15.2 Glucose 97 Calcium 9.8 Total Bilirubin 0.90 AST 37 ALT 31 Alkaline Phosphatase 85 Total Protein 7.6 Albumin 4.0 Globulin 3.6 Albumin/Globulin Ratio 1.1 Lipase 112 Urine Color Yellow Urine Clarity Clear Urine pH 5.0 Ur Specific [place] 1.025 Urine Protein Negative Urine Glucose (UA) Normal Urine Ketones Negative Urine Occult Blood 10 H Urine Nitrite Negative Urine Bilirubin Negative Urine Urobilinogen Normal Ur Leukocyte Esterase Negative Urine RBC 0-5 SEEN Urine WBC 0 SEEN Ur Squamous Epith Cells 0 SEEN Urine Bacteria 0 SEEN Urine Mucus 0 SEEN Radiography Diagnostic Testing: Radiology Impression Abdomen/Pelvis CT 03/07/21 22:54 IMPRESSION: Enhancing wall thickening with mass within the distal stomach which is continuous with an gastric mass component best seen image #39 of the coronal views. This area may measure up to 10.3 x 6.2 cm. For which further evaluation with endoscopy is warranted. Consider possible focus of gastritis, atypia, gastric cancer, gastric leiomyoma could have this appearance. Moderate splenomegaly. Persistent atypical appearing mesenteric lymph nodes. Iies-cv-wlykkhbs constipation Bilateral renal cysts. Benign hepatic cyst. Electronically Signed: Adriana Hopson MD at 0:20 EDT Tel , Service support , Discharge Plan Triage Chief Complaint: Abd Pain ED Provider: Brandon Crain Dx/Rx/DC Orders Instructions: ED Constipation (Adult) Prescriptions: No Action meloxicam 15 mg tablet 15 mg PO DAILY RF: 0 losartan 50 mg tablet 50 mg PO DAILY RF: 0 hydrochlorothiazide 12.5 mg tablet 12.5 mg PO DAILY RF: 0 Primary Care Provider: Reji Knox Referrals: Susy Valdovinos MD [STAFF PHYSICIAN] - As soon as possible Reji Knox MD [Primary Care Provider] - Activity Restrictions/Additional Instructions: Today we found an area of mass on your stomach. As we discussed you are to follow-up with Dr. Valdovinos. I did speak with her and she wants you to call the office in the morning so that she can see you tomorrow. Disposition Disposition: Home, self care
[2021-03-07 23:27] LABS: Absolute Lymphocyte Count 1.24 X10^3/uL (0.83-4.51); Absolute Neutrophil Count 6.5 X10^3/uL (2.0-7.7); Basophil# 0.01 X10^3/uL; Basophil% 0.1 % (0-1); Eosinophil# 0.23 X10^3/uL; Eosinophils% 2.7 % (0-5); Hematocrit 41.6 % (40-54); Hemoglobin 14.2 g/dL (13.0-16.5); Lymphocyte # 1.24 X10^3/ul (0.83-4.51); Lymphocyte % 14.6 % (19-41); Mean Corp Hgb Conc 34.1 g/dL (32-36); Mean Corpuscular Hgb 30.2 pg (27.0-32.0); Mean Corpuscular Volume 88.5 fL (80-94); Mean Platelet Vol. 8.8 fl (6.2-12.0); Monocyte% 5.9 % (0-10); NRBC Flagged by Analyzer 0 % (0-5); Neutrophil # 6.49 X10^3/uL (2.7-7.7); Neutrophil % 76.2 % (47-70); Platelet Count 233 K/mm3 (150-450); RBC Distribution Width CV 12.6 % (11.6-14.6); RBC Distribution Width SD 40.8 fl (35.1-43.9); White Blood Count 8.5 K/mm3 (4.4-11.0)
[2021-03-07 23:38] LABS: ALB/GLOB Ratio 1.1 RATIO (0.9-2.4); AST(SGOT) 37 U/L (15-37); Alanine Aminotransfer ALT/SGPT 31 U/L (16-61); Alkaline Phosphatase 85 U/L (45-117); Anion Gap 2 (5-15); BUN 21 mg/dL (7-18); BUN/Creat Ratio 15.2 RATIO (10-20); Calcium,Total 9.8 mg/dL (8.5-10.1); Chloride 105 mmol/L (98-107); Creatinine, Serum 1.38 mg/dL (0.70-1.30); EST Glomerular Filtration Rate 54 mL/min (>60); Est Glom Filt Rate - Afr Amer 65 mL/min (>60); Globulin 3.6 g/dL (2.2-4.2); Glucose 97 mg/dL (74-106); Lipase 112 U/L (73-393); Potassium 4.2 mmol/L (3.5-5.1); Protein, Total 7.6 g/dL (6.4-8.2); Sodium Level 139 mmol/L (136-145)
[2021-03-07 23:45] LABS: Bacteria 0 SEEN /hpf (None Seen); Mucous, Urine 0 SEEN /hpf (<or=2+); Squamous Epithelial Cells - UA 0 SEEN /hpf (0-5); White Blood Cells 0 SEEN /hpf (0-5)
[2021-03-07 23:47] LABS: Color, Urine Yellow (Yellow); Glucose, Dipstick Normal (Normal); Ketone-Dipstick Negative (Negative); Leukocyte Esterase-Dipstick Negative /ul (Negative); Nitrite-Dipstick Negative (Negative); Occult Blood-Urine 10 /ul (Negative); Protein-Dipstick Negative (Negative); Specific Gravity, Urine 1.025 (1.002-1.030); Urine Bilirubin Dipstick Negative (Negative); Urine Clarity Clear (Clear); Urine Urobilinogen Normal (Normal)
[2021-03-07 23:52] LABS: Red Blood Cells-Urine 0-5 SEEN /hpf (0-5)
[2021-03-08 00:47] VITALS: BP 158/88
== END 2021-03-08 00:48 | disposition home or self-care (01) ==
PROVIDERS: Emergency Provider Student in an Organized Health Care Education/Training Program; PCP Family Medicine
DX: K59.00 Constipation, unspecified (principal); R16.1 Splenomegaly, not elsewhere classified; K76.89 Other specified diseases of liver; I10 Essential (primary) hypertension; Z79.899 Other long term (current) drug therapy
CPT/HCPCS: 74177; 80053; 81001; 83690; 85025; 99283; Q9967

== ENCOUNTER 2021-03-09 10:33 | Day surgery (SDC) | payer SELFPAY ==
--- NOTE | 2021-03-08 16:48 | HP.PCM_ITS ---
History and Physical Date of Admission: 03/09/21 HISTORY AND PHYSICAL ? Katherine Luevano 1950 ? ? CHIEF COMPLAINT:? ?Upper abdominal pain, gastric mass by CT scan ? HPI: The patient is a 70 year old male who presented to [facility] ED with complaint of upper abdominal pain. He states that he has noted this for the past week, but his states that he has had intermittent episodes for weeks prior. He describe the pain as a severe ache with occasional sharp pains.? He also notes some nausea. He thought it was because he was taking too many NSAIDs for his left ankle pain. He also thought that it might be a kidney stone, as he has had these in the past. He denies any history of ulcer disease. He denies emesis or history of hematemesis. He denies melena. He states that he last had a colonoscopy about 50 years ago. His work up at the [facility] ED included a CT scan which revealed distal stomach ther e is a focus of enhancing wall thickening, nondependent portion of the stomach...,mass-like measuring 2.1 x 4 cm but more likely wall thickening on the coronal views...,this appears to be continuous with a low attenuating exophytic mass extending from the wall of the stomach...,there is a mesenteric lymph node measuring 2 cm...,this is the largest of several mesenteric lymph nodes Patient denies weight loss, denies changes in appetite, denies changes in energy level No colon or stomach cancer known in family, mother had breast cancer and sister had some type of female cancer ? ? PAST MEDICAL HISTORY ?High blood pressure? PAST SURGICAL HISTORY ?BACK SURGERY HX 1993 ?COLONOSCOPY GEN ANES ? ?age- 20's ?REMOVAL OF KIDNEY STONE ? ? ? Current Outpatient Medications ?hydroCHLOROthiazide (HYDRODIURIL, ESIDRIX) 12.5 mg tabletTake 12.5 mg by mouth once daily. ?losartan (COZAAR) 50 mg tabletTake 50 mg by mouth once daily. ?meloxicam (MOBIC) 15 mg tabletTake 15 mg by mouth once daily. ? ? ALLERGIES: Patient has no known allergies. ? PERSONAL HISTORY:? Social History ? Tobacco Use ?Smoking status:Never Smoker ?Smokeless tobacco:Never Used Substance Use Topics ?Alcohol use:Not on file ?Drug use:Not on file ?? ? FAMILY HISTORY? ?other (high blood pressure)Mother? ?Breast CancerMother? ? ? The review of systems data was entered by the nurse and reviewed by me ? Nursing Notes:? Nusrat Choudhary LPN? 03/08/2021? 1:24 PM? Signed REVIEW OF SYSTEMS: ? ? ?General:? ?The patient denies fatigue, denies weight loss, denies weight gain, denies feeling hot, and denies feelings of cold. ? ? ?Eyes:? The patient denies glaucoma, denies eye injury/surgery, does not wear glasses or contacts. ? ? ?Ear/Nose/Throat:? The patient denies allergies, denies hayfever, denies ear infections, and denies bloody noses. ? ? ?Cardiovascular:? The patient denies chest pain, denies heart disease, NOTES high blood pressure,denies cardiac stent, denies prior heart attack, denies irregular heart beat, denies high cholesterol,? denies poor circulation, denies heart failure, other cardiac issues, denies claudication, denies cold feet, denies peripheral arterial stent. ? ? ?Respiratory:? The patient denies tuberculosis, NOTES pneumonia, denies frequent cough, denies pulmonary embolism, denies shortness of breath, and denies coughing up blood. ? ? ?Gastrointestinal:? The patient denies difficulty swallowing, denies acid reflux, denies ulcers, denies vomiting, denies jaundice/hepatitis, denies gallbladder problems, denies black or tarry stools, denies hemorrhoids, denies bleeding from rectum, denies diverticulitis, denies constipation, denies diarrhea, denies loss of stool control, and denies hernias. ? ? ?Kidney/Bladder:? The patient NOTES kidney stones, denies urine infections, and denies bloody urine. ? ? ?Skin:? The patient denies a history of skin cancer, denies blee ding/changing moles, and denies a history of skin rash. ? ? ?Neurologic:? The patient denies a history of epilepsy/convulsions, denies headaches, denies head/spinal injuries, and denies stroke/TIA. ? ? ?Psychiatric:? The patient denies psychiatric medications, denies depression, and denies voices, denies substance abuse. ? ? ?Endocrine:? The patient denies thyroid disorders, denies diabetes, and denies hormonal problems. ? ? ?Hematologic:? The patient denies a history of bruising, denies bleeding, and denies anemia, denies blood clots. ? ? ?Infections:? The patient NOTES a history of measles and mumps, denies rheumatic fever, and denies sexually transmitted diseases. ? ? ?Musculoskeletal:? The patient NOTES back pain/injury, denies back problems, denies sciatica, NOTES knee/foot trouble, denies arthritis, or NOTES gout. When was patient's last Mammogram screening? N/A ?Last Colonoscopy:? 1969'? Nusrat Choudhary LPN ? ? PHYSICAL EXAMINATION: General:? The patient is 70 year old male, well nourished, well hydrated in no acute distress.? The patient is oriented to time, place, and person. VITALS: Blood pressure 148/72, pulse 67, temperature 36.6 ?C (97.8 ?F), height 177.8 cm (5' 10), weight 97.1 kg (214 lb), SpO2 94 %. Body mass index is 30.71 kg/m?.? ? Head ? Normocephalic. EOM intact with sclera clear and no icterus noted. Mouth with mucus membranes moist. Neck - supple with no jugular venous distention noted. Trachea is midline.? Lungs ? clear to auscultation. Normal breath sounds. No rales/rhonchi/wheezing noted. No labored breathing noted, such as retractions. No cough heard. Heart ? normal S1 and S2 auscultated. No rubs/clicks/murmurs noted. Regular rate. Abdomen ? soft and benign and protuberant.? Difficult to determine if any masses or organomegaly due to body habitus. Extremities ? no calf tenderness noted. No pitting edema noted. Skin ? normal skin integrity. Neurological ? gait normal, no focal deficits noted. Psych ? calm and appropriate RADIOLOGIC STUDIES:? As Noted ?? IMPRESSION: upper abdominal pain, gastric mass by CT scan, screening for colon cancer ? PLAN:? ?I have discussed the above with the patient and his who is present with him. I have offered EGD with biopsies and colonoscopy with biopsies.? I have explained the rationale of obtaining a colonoscopy to rule out pathology in the colon, in case any surgical procedure is required of the stomach. I have explained the procedure to the patient.?? I have counseled the patient as to the risks of the procedure, including but not limited to:? infection, bleeding, injury to any intrabdominal organs such as liver/spleen, perforation of the GI tract, inability to complete the procedure, complications of anesthesia, etc. ? the patient understands.?? ? The patient was offered a surgery/procedure. The provider and patient have discussed in detail the risk of exposure to and/or potential harm posed by the COVID-19 virus with having a surgery/procedure at this time versus the risk of? delaying the surgery/procedure. It is not possible to know either the risk of delaying the surgery or procedure or chance of getting an infection with perfect accuracy, but a joint decision was made between the patient and the provider? to proceed at this time with the scheduled surgery/procedure.? Patient has already been vaccinated for COVID. ? The patient wishes to proceed. I have answered all questions to the patient?s satisfaction and the patient has no further questions. ?. Diagnoses: (R10.11) Right upper quadrant abdominal pain? (primary encounter diagnosis) (R93.3) Abnormal CT scan, stomach (Z12.11) Screening for colon cancer ? ? ? Return to Clinic: The patient is instructed to follow-up with me after the p rocedure as per needed. ?? ? Susy Valdovinos MD
[2021-03-09 11:40] VITALS: BP 130/77; PULSE 60; RESP 16; TEMP 36.6; O2SAT 97; BMI 30.5
[2021-03-09] MEDS: Lactated Ringers 1,000 ML 100 ML IV (11:46)
--- NOTE | 2021-03-09 12:00 | EGD_PTH ---
PATIENT: YU RECINOS LOC: EN U#:[id number] AGE/SX: 70/M ROOM: RE03/09/[address]: Dr. Susy Valdovinos MD : 1950 BED: DIS: 03/09/2021 SPEC #: [id number] RECD: 03/09/21 13:11 STATUS: DEBORAH REChano #: [id number] YANG: 03/09/21 12:[address]: Susy Valdovinos DEPT: SURGICAL PATHOLOGY RECD BY: Araceli Chand ENTERED: 03/09/21 13:34 SP TYPE: EGD BIOPSY OT DR: Dr. Reji Knox MD Tissues: A - Gastric mucous membrane B - Gastric mucous membrane Procedures: Surgery Specimen Level IV HEADER OPERATION: Colonoscopy, EGD ([facility] [place]) PRE-OP DIAGNOSIS: Upper abdominal pain, gastric mass by CT scan; screening for colon cancer TISSUE SUBMITTED: A ? Antrum biopsy for H. pylori and path, B ? Biopsy of gastric mass MICROSCOPIC DIAGNOSIS A. Antrum biopsy: Mild gastritis. See microscopic description and comment. B. Gastric mass, biopsy: Mild gastritis. Negative for malignancy. See microscopic description. SJ:rg 03/10/2021 COMMENT A. The results of immunohistochemistry for Helicobacter pylori will be reported separately ([id number]). B. The specimen consists of only mucosal tissue. Submucosal tissue is not present in the specimen. If there is high suspicion of malignancy, rebiopsy is suggested, if clinically indicated. This case is discussed with Dr. Valdovinos on 03/10/21. MICROSCOPIC DESCRIPTION Slides are reviewed. A & B. Both specimen shows similar morphologic changes. The specimens show fragments of gastric mucosa with chronic inflammatory cell infiltrates in the lamina propria consisting of lymphocytes and plasma cells, consistent with mild chronic gastritis. Focal mucosal congestion is also noted. GROSS DESCRIPTION A - Received in fixative is one container labeled with the patient's name and designated antrum biopsy. The specimen consists of two irregular fragments of light cerda soft tissue that in aggregate measure 0.6 x 0.3 x 0.1 cm. The specimen is totally submitted in one cassette. B - Received in fixative is one container labeled with the patient's name and designated biopsy of gastric mass. The specimen consists of two irregular fragments of light cerda soft tissue that in aggregate measure 0.4 x 0.2 x 0.1 cm. The specimen is totally submitted in one cassette. / SJ:rg 03/09/21 TC:3 CPT: 84099 x2
--- NOTE | 2021-03-09 12:00 | IMM_PTH ---
PATIENT: YU RECINOS LOC: EN U#:[id number] AGE/SX: 70/M ROOM: RE03/09/[address]: Dr. Susy Valdovinos MD : 1950 BED: DIS: 03/09/2021 SPEC #: [id number] RECD: 03/09/21 13:45 STATUS: DEBORAH REQ #: [id number] YANG: 03/09/21 12:[address]: Susy Valdovinos DEPT: IMMUNOHISTOCHEMISTRY RECD BY: Britany Simental ENTERED: 03/09/21 13:46 SP TYPE: IMMUNO OTHR DR: Dr. Reji Knox MD Tissues: A - Stomach, NOS Procedures: H Pylori (initial) PHYSICIAN & INSTITUTION [address] [address] SPECIMEN INFORMATION: Tissue Source: A ? Antrum biopsy Clinical Info: Upper abdominal pain; gastric mass by CT scan; screening for colon cancer Specimen Number: [id number] CPT code: 17964 METHODOLOGY: Deparaffinized sections of prefer/formalin-fixed tissue or PAP/DQ stained slides are incubated with monoclonal/polyclonal antibodies/oligonucleotide probes. Localization is made via biotin free immunoperoxidase method. Appropriate controls are performed and reacted as expected. Results on target cell population are indicated in the following table: RESULTS: ANTIBODY / CLONE RESULT Block A H Pylori (polyclonal) negative These tests were developed and their performance characteristics determined by [facility]. They may not have been cleared or approved by the U.S. Food and Drug Administration. The FDA has determined that such clearance or approval is not necessary. INTERPRETATION: A. Antrum biopsy: Negative for Helicobacter pylori organisms. SJ:kel 03/10/2021
[2021-03-09 12:54] VITALS: BP 130/77; BP 144/77; PULSE 73; RESP 20; TEMP 36.4; O2SAT 97
--- NOTE | 2021-03-09 12:57 | OP.EGD_ITS ---
Patient Name: Katherine Luevano Procedure Date: 03/09/2021 11:58 AM Date of : 1950 Age: 70 Procedure: Upper GI endoscopy Indications: Abnormal CT of the GI tract Providers: Susy Valdovinos MD Medicines: See the Anesthesia note for documentation of the administered medications Patient Profile: Refer to note in patient chart for documentation of history and physical. Complications: No immediate complications. Procedure: Pre-Anesthesia Assessment: - see anesthesia note After obtaining informed consent, the endoscope was passed under direct vision. Throughout the procedure, the patient's blood pressure, pulse, and oxygen saturations were monitored continuously. The gastroscope was introduced through the mouth, and advanced to the second part of duodenum. The upper GI endoscopy was accomplished without difficulty. The patient tolerated the procedure well. Scope In: 12:06:44 PM Scope Out: 12:32:51 PM Total Procedure Duration Time 0 hours 26 minutes 7 seconds Findings: The first portion of the duodenum and second portion of the duodenum were normal. A large, submucosal, non-circumferential mass with no bleeding and no stigmata of recent bleeding was found in the gastric body. This was biopsied with a needle for histology. Verification of patient identification for the specimen was done by the nurse. Estimated blood loss was minimal. The examined esophagus was normal. Impression: - Normal first portion of the duodenum and second portion of the duodenum. 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 Biopsied. - Normal esophagus. Recommendation: - Discharge patient to home (ambulatory). - Resume previous diet. - Continue present medications. - Await pathology results. - My office will telephone with pathology results in 1-2 weeks Procedure Code(s): --- Professional --- 77551, Esophagogastroduodenoscopy, flexible, transoral; diagnostic, including collection of specimen(s) by brushing or washing, when performed (separate procedure) Diagnosis Code(s): --- Professional --- D49.0, Neoplasm of unspecified behavior of digestive system R93.3, Abnormal findings on diagnostic imaging of other parts of digestive tract CPT copyright 2017 [employer]. All rights reserved. The codes documented in this report are preliminary and upon resource specialist teacher review may be revised to meet current compliance requirements. MD Susy Izquierdo MD 03/09/2021 12:57:35 PM This report has been signed electronically. Number of Addenda: 0 Note Initiated On: 03/09/2021 11:58 AM
--- NOTE | 2021-03-09 12:58 | OP.CCLET_ITS ---
03/09/2021 Reji Knox MD [address] [id number] Re : Upper GI endoscopy procedure for Katherine Luevano Dear Dr. Knox This procedure was performed on Tuesday, March 09, 2021. My impressions and recommendations are as follows: Impressions : - Normal first portion of the duodenum and second portion of the duodenum. 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 Biopsied. - Normal esophagus. Recommendations : - Discharge patient to home (ambulatory). - Resume previous diet. - Continue present medications. - Await pathology results. - My office will telephone with pathology results in 1-2 weeks My findings are described in the full procedure note, which is enclosed. If I can be of further assistance, please feel free to contact me at Doctor phone number(s): , Work: . Sincerely, MD Susy Izquierdo MD 03/09/2021 12:57:35 PM This report has been signed electronically.
--- NOTE | 2021-03-09 13:00 | OP.COLON_ITS ---
Patient Name: Katherine Luevano Procedure Date: 03/09/2021 12:34 PM Date of : 1950 Age: 70 Procedure: Colonoscopy Indications: Screening for colorectal malignant neoplasm Providers: Susy Valdovinos MD Medicines: See the Anesthesia note for documentation of the administered medications Patient Profile: Refer to note in patient chart for documentation of history and physical. Last Colonoscopy: more than 10 years ago. Complications: No immediate complications. Procedure: Pre-Anesthesia Assessment: - see anesthesia note After I obtained informed consent, the scope was passed under direct vision. Throughout the procedure, the patient's blood pressure, pulse, and oxygen saturations were monitored continuously. The Colonoscope was introduced through the anus and advanced to the cecum, identified by the appendiceal orifice, ileocecal valve and palpation. The colonoscopy was performed without difficulty. The patient tolerated the procedure well. The quality of the bowel preparation was poor, there was still retained fecal material. Therefore lavage and aspiration was done to clear the fecal material. This took some time. The munoz were cleared adequately. Scope In: 12:35:16 PM Scope Withdrawal Time 0 hours 7 minutes 5 seconds Scope Out: 12:47:36 PM Total Procedure Duration Time 0 hours 12 minutes 20 seconds Findings: Non-bleeding internal hemorrhoids were found. The perianal and digital rectal examinations were normal. Impression: - Non-bleeding internal hemorrhoids. - No specimens collected. Recommendation: - Discharge patient to home (ambulatory). - Resume previous diet. - Continue present medications. - Repeat colonoscopy in 10 years for screening purposes. Procedure Code(s): --- Professional --- G0121, Colorectal cancer screening; colonoscopy on individual not meeting criteria for high risk Diagnosis Code(s): --- Professional --- K64.8, Other hemorrhoids Z12.11, Encounter for screening for malignant neoplasm of colon CPT copyright 2017 [employer]. All rights reserved. The codes documented in this report are preliminary and upon fish and game warden review may be revised to meet current compliance requirements. MD Susy Izquierdo MD 03/09/2021 1:00:10 PM This report has been signed electronically. Number of Addenda: 0 Note Initiated On: 03/09/2021 12:34 PM
--- NOTE | 2021-03-09 13:01 | OP.CCLET_ITS ---
03/09/2021 Reji Knox MD [address] [id number] Re : Colonoscopy procedure for Katherine Luevano Dear Dr. Knox This procedure was performed on Tuesday, March 09, 2021. My impressions and recommendations are as follows: Impressions : - Non-bleeding internal hemorrhoids. - No specimens collected. Recommendations : - Discharge patient to home (ambulatory). - Resume previous diet. - Continue present medications. - Repeat colonoscopy in 10 years for screening purposes. My findings are described in the full procedure note, which is enclosed. If I can be of further assistance, please feel free to contact me at Doctor phone number(s): , Work: . Sincerely, MD Susy Izquierdo MD 03/09/2021 1:00:10 PM This report has been signed electronically.
[2021-03-09 13:05] VITALS: BP 128/73; BP 130/77; BP 135/63; PULSE 62; PULSE 66; RESP 18; O2SAT 97
[2021-03-09 13:10] VITALS: BP 125/70; BP 130/77; PULSE 60; RESP 18; TEMP 36.3; O2SAT 98
[2021-03-09 13:35] VITALS: BP 130/77
== END 2021-03-09 13:46 ==
LOC: EN 10:36 → AC 10:38
PROVIDERS: PCP Family Medicine; Referring Provider Family Medicine; Visit Provider Surgery
PROC: 0DJD8ZZ Inspection of Lower Intestinal Tract, Via Natural or Artificial Opening Endoscopic (ICD-10-PCS; CPT 45378; principal; 2021-03-09 11:55)
DX: Z12.11 Encounter for screening for malignant neoplasm of colon (principal); K29.70 Gastritis, unspecified, without bleeding; K64.8 Other hemorrhoids; E66.9 Obesity, unspecified; I10 Essential (primary) hypertension; Z68.30 Body mass index [BMI] 30.0-30.9, adult; Z79.899 Other long term (current) drug therapy
CPT/HCPCS: 43239; G0121; 88305; 88342; J7050; J7120; A4216; J2405

== ENCOUNTER → 2021-08-17 10:57 | Outpatient (CLI) | payer SELFPAY ==
--- NOTE | 2021-08-16 | IMM_PTH ---
PATIENT: YU RECINOS LOC: [facility] U#:[id number] AGE/SX: 74/M ROOM: RE08/17/[address]: Dr. Susy Valdovinos MD : 1950 BED: DIS: SPEC #: [id number] RECD: 08/19/21 07:37 STATUS: DEBORAH FAIR #: [id number] YANG: 08/16/21 00:[address]: Susy Valdovinos DEPT: IMMUNOHISTOCHEMISTRY RECD BY: Britany Simental ENTERED: 08/19/21 07:38 SP TYPE: IMMUNO OTHR DR: Dr. Reji Knox MD Tissues: C - Thyroid gland, NOS Procedures: HBME (initial) CD56 (add) CK19 (add) GAL-3 (add) PHYSICIAN & INSTITUTION [place] [id number] SPECIMEN INFORMATION: Tissue Source: C ? Left thyroid fluid, ultrasound-guided fine needle aspiration Clinical Info: Thyroid nodules Specimen Number: [id number] C CPT code: 05342, 76282 x3 METHODOLOGY: Deparaffinized sections of prefer/formalin-fixed tissue or PAP/DQ stained slides are incubated with monoclonal/polyclonal antibodies/oligonucleotide probes. Localization is made via biotin free immunoperoxidase method. Appropriate controls are performed and reacted as expected. Results on target cell population are indicated in the following table: RESULTS: ANTIBODY / CLONE RESULT Block C HBME1 (HBME-1) positive CK19 (A53-B/A2.26) positive GAL3 (9C4) positive CD56 (123C3.D5) negative These tests were developed and their performance characteristics determined by [facility]. They may not have been cleared or approved by the U.S. Food and Drug Administration. The FDA has determined that such clearance or approval is not necessary. The above immunohistochemical/dualISH markers are ordered and reviewed by the Pathologist. INTERPRETATION: C. Left thyroid fluid, ultrasound-guided fine needle aspiration: Malignant cells present derived from papillary thyroid carcinoma. This case has been reviewed in consultation with Dr. Alcantara who concurs with the above diagnosis. SJ:kel 08/19/2021
--- NOTE | 2021-08-16 08:00 | FLU_PTH ---
PATIENT: YU RECINOS LOC: [facility] U#:[id number] AGE/SX: 74/M ROOM: RE08/17/[address]: Dr. Susy Valdovinos MD : 1950 BED: DIS: SPEC #: [id number] RECD: 08/17/21 10:12 STATUS: DEBORAH MANJULA #: [id number] YANG: 08/16/21 08:[address]: Susy Valdovinos DEPT: CYTOLOGY RECD BY: Araceli Chand ENTERED: 08/17/21 11:34 SP TYPE: Fluid OTHR DR: Dr. Reji Knox MD Tissues: A - Thyroid gland, NOS B - Thyroid gland, NOS C - Thyroid gland, NOS D - Thyroid gland, NOS Procedures: Special Stain Group II Surgery Specimen Level IV Cytospin Fluid HEADER OPERATION: Ultrasound-guided fine needle aspiration of bilateral thyroid PRE-OP DIAGNOSIS: Thyroid nodules TISSUE SUBMITTED: A - FNA right thyroid fluid, B - FNA right thyroid x8 slides, C - FNA left thyroid fluid, D - FNA left thyroid x4 slides DIAGNOSIS CYTOLOGY A. Right thyroid nodule fluid, ultrasound-guided FNA (cytospin and cell block): Atypical follicular cells of undetermined significance. B. Right thyroid nodule, ultrasound-guided FNA (smears): Malignant cells present derived from papillary thyroid carcinoma Adequate for evaluation. C. Left thyroid nodule fluid, ultrasound-guided FNA (cytospin and cell block): Malignant cells present derived from papillary thyroid carcinoma. See comment. D. Left thyroid nodule, ultrasound-guided FNA (smears): Malignant cells present derived from papillary thyroid carcinoma. Adequate for evaluation. SJ:kel 08/18/2021 COMMENT C. Immunohistochemistry ([id number]) supports the above diagnosis. Correlation with clinical, radiologic findings and appropriate follow up are necessary. Case has been reviewed in consultation with Dr. Alcantara who concurs with the above diagnosis. IDC:AM CYTOLOGY STUDY Slides are reviewed. CYTOLOGY GROSS A - Received is 30 ml of brown cloudy fluid labeled with the patient's name and and designated per the requisition as right thyroid. Submitted for cytology preparation including cell block. B - Received are eight smears labeled with the patient's name and designated per the requisition as right thyroid. Submitted for staining. C - Received is 30 ml of brown cloudy fluid labeled with the patient's name and and designated per the requisition as left thyroid. Submitted for cytology preparation including cell block. D - Received are four smears labeled with the patient's name and designated per the requisition as left thyroid. Submitted for staining. / kel 08/17/2021 TC:0 CPT: 33709 x2, 31015 x2, 91666 x2
== END ==
LOC: LABSPEC 10:59
PROVIDERS: PCP Family Medicine; Visit Provider Surgery
DX: E04.1 Nontoxic single thyroid nodule (principal)
CPT/HCPCS: 88108; 88305; 88313; 88341; 88342

== ENCOUNTER 2021-11-28 12:06 | Emergency (ER) | payer SELFPAY ==
[2021-11-28 12:06] VITALS: BP 141/70; PULSE 66; RESP 16; TEMP 36.1; O2SAT 97; BMI 28.7
--- NOTE | 2021-11-28 12:23 | CT_ITS ---
HISTORY: head injury. TECHNIQUE: Multiple axial images were obtained of the brain without intravenous contrast. A radiation dose optimization technique was used for this scan. # of images incl. paperwork: 249. COMPARISON: None. FINDINGS: BRAIN PARENCHYMA:Multiple small foci and zones of low attenuation in the cerebral white matter most compatible with chronic small vessel ischemic gliosis. INTRACRANIAL HEMORRHAGE: No acute intracranial hemorrhage. CSF SPACES/MASS EFFECT: Diffuse atrophy with compensatory ventricular enlargement. No midline shift or other significant mass effect. ORBITS: Unremarkable. CALVARIUM: Intact. PARANASAL SINUSES AND MASTOID AIR CELLS: Fluid and mucosal thickening in the bilateral frontal ethmoid and left maxillary sinuses. OTHER: Incompletely imaged 1.8 cm right parotid mass. Incompletely image 1.5 cm left parotid nodule or mass with small calcifications. CT/Brain/Head without Contrast IMPRESSION: No acute intracranial process identified. Chronic small vessel ischemic gliosis. Incompletely imaged bilateral parotid masses. Recommend nonurgent CT or MRI neck with contrast. Paranasal sinus inflammatory disease. Individualized dose optimization techniques were used for this CT. at 1311 Reported and signed by: Ivy Soto MD Electronically Signed: Ivy Soto MD at 13:10 EST ,
--- NOTE | 2021-11-28 12:23 | CT_ITS ---
HISTORY: trauma. TECHNIQUE: Helically acquired images were obtained of the cervical spine. 2D reformatted images were reviewed. A radiation dose optimization technique was used for this scan. # of images incl. paperwork: 336. IV Contrast dosage and agent: None. COMPARISON: None. FINDINGS: VERTEBRAE: No acute fracture identified. VERTEBRAL ALIGNMENT: No significant anterior or posterior subluxation. Dextroscoliosis and straightening of the cervical lordosis noted. DISCS: Degenerative endplate changes at multiple levels. Posterior disc bulge osteophyte complexes with uncovertebral and facet arthropathy. C2-3: Mild central canal stenosis. C3-4: Severe central canal stenosis and left foraminal narrowing. C4-5: Moderate central canal stenosis and left foraminal narrowing. C6-7: Mild central canal stenosis. SOFT TISSUES: No prevertebral soft tissue swelling. Nodular thyroid with calcifications. CT/Spine Cervical without Contras IMPRESSION: No evidence of acute cervical spinal fracture or dislocation. Multilevel degenerative disc disease as described above. Individualized dose optimization techniques were used for this CT. at 1314 Reported and signed by: Ivy Soto MD Electronically Signed: Ivy Soto MD at 13:13 EST ,
--- NOTE | 2021-11-28 12:25 | RAD_ITS ---
HISTORY: fall. TECHNIQUE: XR Spine Thoracic 2 Views. # of images incl. paperwork: 3. COMPARISON: CTA 11/28/2019. FINDINGS: VERTEBRAE: Vertebral body heights maintained. No acute fracture identified. VERTEBRAL ALIGNMENT: No significant anterior or posterior subluxation. Moderate cervicothoracic levoscoliosis again seen. INTERVERTEBRAL DISCS: Degenerative changes with bridging osteophytes noted. SOFT TISSUES: Left upper quadrant postoperative change with suture. RAD/Thoracic Spine 2 Views IMPRESSION: No acute fracture or dislocation identified in the thoracic spine. Scoliosis and degenerative change. at 1317 Reported and signed by: Ivy Soto MD Electronically Signed: Ivy Soto MD at 13:16 EST ,
--- NOTE | 2021-11-28 12:25 | EDS_ITS ---
HPI History of Present Illness Chief Complaint: Fall Detail of Chief Complaint: Fall on ice approximately 1 hour ago Informant: patient Narrative Narrative: Patient presents to the emergency department complaint of a fall on the ice that occurred about an hour ago. Patient states that he slipped and hit his head and he thinks he was knocked unconscious but unsure how long. Patient states that he could not get up for about 10 minutes. Family finally helped him. Patient states that he blew his nose and there was a lot of blood and that concerned him. Patient also complaining of numbness and tingling to both hands and discomfort in his head and neck and upper back. He denies any weakness in the extremities. Patient ambulated into the department. Patient not on anticoagulation. [facility] Medical History (Updated 11/28/21 @ 14:[address] Amercia Beyer DO) Arthritis Back pain Heartburn History of stress test (~11/29/19) Hx of gout Hypertension Injury of back Kidney stones Non-smoker Normal echocardiogram (~11/29/19) Shortness of breath on exertion Home Medications hydrochlorothiazide 12.5 mg PO DAILY 03/07/21 [History Last Taken Unknown] losartan 50 mg PO DAILY 03/07/21 [History Last Taken Unknown] meloxicam 15 mg PO DAILY 03/07/21 [History Last Taken Unknown] allopurinol 100 mg PO DAILY 11/28/21 [History Last Taken Unknown] colchicine 0.6 mg PO PRN PRN 11/28/21 [History Last Taken Unknown] imatinib 400 mg PO DAILY 11/28/21 [History Last Taken Unknown] pantoprazole 40 mg PO DAILY 11/28/21 [History Last Taken Unknown] potassium chloride 20 meq PO DAILY 11/28/21 [History Last Taken Unknown] Allergy/AdvReac Type Severity Reaction Status Date / Time No Known Allergies Allergy Verified 11/28/21 12:06 Surgical History (Updated 03/08/21 @ 14:45 by Enedelia Cain) History of back surgery History of left heart catheterization (11/29/19) Hx of cystoscopy (~08/27/18) Social History Smoking Status: Never smoker ROS ROS ED Constitutional Constitutional ED: Reports systems reviewed and no addt'l complaints, except as documented; Denies body ache(s), change in weight or chills Eyes Eyes: Denies acute decrease in peripheral vision, change in vision, double vision or loss of vision ENT ENT ED: Reports none; Denies ear pain, lip swelling, loss taste/smell, neck pain, otalgia or sore throat Cardiovascular Cardiovascular: Reports none; Denies abdominal pain, chest pain with activity, leg edema, lightheadedness, palpitations, rapid heart rate or syncope Respiratory/Chest Respiratory/Chest: Reports none; Denies change in mental status, dry cough, dyspnea, hemoptysis, shortness of breath at rest or shortness of breath with exertion Gastrointestinal Gastrointestinal: Reports none; Denies abdominal pain, change in stool character, diarrhea, hematemesis, hematochezia, melena, rectal bleeding or vomiting Genitourinary Genitourinary ED: Reports none; Denies abdominal discomfort, anuria, dysuria, genital pain or polyuria Musculoskeletal Musculoskeletal: Reports none, back pain, neck pain and other Details: Right hip pain ; Denies arthralgias, difficulty walking, extremity pain, muscle weakness or myalgias Integumentary Reports none; Denies abscess or rash Neurologic Neurologic: Reports none, headache(s) and paresthesias; Denies abnormal gait, confusion, focal weakness, frequent falls, loss of vision, numbness, radicular pain, vertigo or weakness Psychiatric Psychiatric: Reports systems reviewed and no addt'l complaints, except as documented and none; Denies behavioral changes, confusion, difficulty concentrating, hallucinations, suicidal ideation, tactile hallucinations or visual hallucinations Endocrine Endocrinology: Denies none, cold intolerance, excessive sweating, fatigue or heat intolerance Hematologic/Lymphatic Hematologic/Lymphatic: Reports none; Denies anemia, easy bleeding or easy br uising Allergic/Immunologic Allergic/Immunologic ED: Denies as per HPI, none, lip swelling, mouth swelling, throat swelling, tongue swelling or hives EXAM Physical Exam Const Vital Signs: 11/28/21 12:06 11/28/21 12:31 Temperature 96.9 F L Temperature Source Temporal Pulse Rate 66 Respiratory Rate 16 Respiratory Effort Normal Non-Labored Respiratory Depth Normal Respiratory Pattern Normal Blood Pressure 141/70 H Blood Pressure Mean 93 Pulse Ox 97 Oxygen Delivery Method Room Air Positive well nourished and well developed General Appearance ED: well developed and NAD HEENT Reports TM's clear and moist mucous membranes HEENT Narrative: No external evidence of trauma to his head. No hemotympanum. normocephalic and atraumatic; Negative for trauma or tenderness Tympanic Membrane ED: Yes TM's clear Eyes PERRL and EOMs intact bilaterally General Eye ED: Negative for pale conjunctiva or scleral icterus Neck no lymphadenopathy, supple and no JVD Neck Narrative: Patient has mild diffuse tenderness over the C-spine and upper thoracic spine. No bony step-offs or crepitus noted. Range of motion is relatively normal with minimal discomfort. General: tenderness Chest Wall inspection of chest normal and palpation of chest normal Chest: Negative for tenderness Resp normal respiratory effort and clear to auscultation bilaterally Effort and Inspection: Negative for respiratory distress or pain with movement Auscultation: Negative for rhonchi, wheezes or diminished lung sounds Cardio regular rate, regular rhythm, S1 normal heart sound, S2 normal heart sound and no murmurs Peripheral Pulses: pulses 2+ throughout GI normal to inspection, nondistended, normoactive bowel sounds, soft to palpation, non-tender, non-distended and no masses Back/Spine no CVA tenderness and no thoracic nor lumbar tenderness Extremity normal to inspection Extremity Narrative: No weakness noted in the upper extremities. He has sensation intact but complains of tingling in the hands. General Extremety ED: Negative for edema General Extremity: Negative for edema Neuro oriented x3, CN's II-XII intact bilaterally, no sensory deficits noted and gait normal Sensorium / Orientation: awake, alert, oriented to person, oriented to place and oriented to time Motor Exam: strength 5/5 throughout and strength abnormal Psych mental status grossly normal Skin no rashes or lesions noted and no wounds MDM MDM MDM Narrative Medical decision making narrative: Patient had a CT scan of the brain without contrast that showed chronic involutional changes otherwise nothing acute. Patient also had a CT scan of the cervical spine that showed degenerative changes with severe canal stenosis at C3-4. No fractures noted. Patient also had x-ray of the pelvis and there was some question of a superior pubic ramus fracture although patient not tender over that area. I do not feel a CT scan is indicated to further evaluate as they would not change treatment. X-rays of the thoracic spine 2 views obtained interpreted by myself as no acute fractures. Radiology in agreement. Patient's symptoms of numbness and tingling mostly resolved still having some numbness in both thumbs. I did discuss case with Dr. 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 This was my concern as well however it was not felt that patient needed an emergent MRI as symptoms continue to improve. He is advised to follow-up with Dr. Armas in the office within next 3 to 5 days. He is advised to return if worsening pain in the arms or legs or difficulty walking or using his arms or worsening paresthesias. I was asked to put patient in a soft collar. Patient is comfortable with plan going forward. I also did send off a Covid 19 test which results will be pending. Radiography Diagnostic Testing: Clinical Impression(s) from Imaging Studies Brain CT 11/28/21 12:23 IMPRESSION: No acute intracranial process identified. Chronic small vessel ischemic gliosis. Incompletely imaged bilateral parotid masses. Recommend nonurgent CT or MRI neck with contrast. Paranasal sinus inflammatory disease. Individualized dose optimization techniques were used for this CT. at 1311 Reported and signed by: Ivy Soto MD Electronically Signed: Ivy Soto MD at 13:10 EST , Cervical Spine CT 11/28/21 12:23 IMPRESSION: No evidence of acute cervical spinal fracture or dislocation. Multilevel degenerative disc disease as described above. Individualized dose optimization techniques were used for this CT. at 1314 Reported and signed by: Ivy Soto MD Electronically Signed: Ivy Soto MD at 13:13 EST , Pelvis X-Ray 11/28/21 12:25 IMPRESSION: Mild cortical irregularity of the right superior pubic ramus, question nondisplaced fracture. Recommend CT. at 1321 Reported and signed by: Ivy Soto MD Electronically Signed: Ivy Soto MD at 13:20 EST Reading Location ID and State: [address] [place] [address] Tel , Service support , Thoracic Spine X-Ray 11/28/21 12:25 IMPRESSION: No acute fracture or dislocation identified in the thoracic spine. Scoliosis and degenerative change. at 1317 Reported and signed by: Ivy Soto MD Electronically Signed: Ivy Soto MD at 13:16 EST Reading Location ID and State: [address] [place] [address] Tel , Service support , 2 view x-rays of thoracic spine obtained interpreted by myself as no acute fractures. Radiology in agreement. 1 view pelvis x-ray obtained interpreted by myself as no acute fractures. Radiology felt there might be mild cortical irregularity of right superior pubic ramus. Discharge Plan Triage Chief Complaint: Fall ED Provider: America Beyer Dx/Rx/DC Orders Clinical Impression: Fall, Closed head injury, Cervical strain, Contusion of spinal cord Instructions: Concussion Dc, ED Back Sprain/Strain, ED Neck Sprain or Strain Prescriptions: No Action meloxicam 15 mg tablet 15 mg PO DAILY RF: 0 losartan 50 mg tablet 50 mg PO DAILY RF: 0 hydrochlorothiazide 12.5 mg tablet 12.5 mg PO DAILY RF: 0 allopurinol 100 mg tablet 100 mg PO DAILY RF: 0 pantoprazole 40 mg Tablet,Delayed Release (Dr/Ec) 40 mg PO DAILY RF: 0 colchicine 0.6 mg tablet 0.6 mg PO PRN PRN (Reason: gout) RF: 0 imatinib 400 mg Tablet 400 mg PO DAILY RF: 0 potassium chloride 20 mEq Tablet Extended Release 20 meq PO DAILY RF: 0 Primary Care Provider: Reji Knox Referrals: Svia Armas DO [STAFF PHYSICIAN] - 3-5 Days Reji Knox MD [Primary Care Provider] - Disposition Disposition: Home, Self Care
--- NOTE | 2021-11-28 12:25 | RAD_ITS ---
HISTORY: fall. TECHNIQUE: AP Pelvis: 1 view. # of images incl. paperwork: 1. COMPARISON: CT 03/07/2021. FINDINGS: PELVIC BONES: Mild cortical irregularity of the right superior pubic ramus. Note that overlapping bowel shadows may obscure detail. HIPS: Alignment within normal limits without dislocation. Mild degenerative changes noted. SOFT TISSUES: Chronic ossifications at the bilateral hamstring tendons from old avulsion injuries. RAD/Pelvis 1 or 2 Views IMPRESSION: Mild cortical irregularity of the right superior pubic ramus, question nondisplaced fracture. Recommend CT. at 1321 Reported and signed by: Ivy Soto MD Electronically Signed: Ivy Soto MD at 13:20 EST ,
[2021-11-28 14:15] VITALS: BP 138/69; PULSE 67; RESP 15; O2SAT 95
--- NOTE | 2021-11-29 11:10 | CASEMGMT ---
[facility] ER follow-up: Date of ER visit: 11/28/2021 Presenting ER complaint: fall [facility] placed call to patient's telephone number listed on demographics with no answer. Dagoberto Ndiaye RN, CM
== END 2021-11-28 14:15 | disposition home or self-care (01) ==
PROVIDERS: Emergency Provider Emergency Medicine; PCP Family Medicine; Visit Provider Emergency Medicine
DX: S09.90XA Unspecified injury of head, initial encounter (principal); S24.109A Unspecified injury at unspecified level of thoracic spinal cord, initial encounter; S16.1XXA Strain of muscle, fascia and tendon at neck level, initial encounter; I10 Essential (primary) hypertension; M19.90 Unspecified osteoarthritis, unspecified site; W00.9XXA Unspecified fall due to ice and snow, initial encounter; Z79.899 Other long term (current) drug therapy
CPT/HCPCS: 70450; 72070; 72125; 72170; 87426; 99282

== ENCOUNTER 2022-09-11 03:17 | Observation (INO) | payer MEDICARE, SELFPAY ==
[2022-09-11] VITALS (15 sets, daily range): BP systolic 126–203; BP diastolic 69–90; PULSE 48–86; RESP 16–18; TEMP 36.2–36.8; O2SAT 94–100; BMI 31.0
--- NOTE | 2022-09-11 03:32 | CT_ITS ---
ACR Level 3 findings have been noted. An addendum which confirms receipt of the report will follow. EXAM: CT ABDOMEN AND PELVIS WITHOUT INTRAVENOUS CONTRAST CLINICAL INDICATION: LLQ pain TECHNIQUE: Helically acquired images were obtained of the abdomen and pelvis without intravenous contrast. This CT exam was performed using one or more of the following dose reduction techniques: automated exposure control, adjustment of the mA and/or kV according to patient size, and/or use of iterative reconstruction technique. This report was created using [employer] report generation technology. RADIATION DOSE: Total DLP: 931.80 mGy-cm. COMPARISON: Previous CT of 03/07/2021. FINDINGS: LOWER THORAX: Visualized lung bases are clear. Minimal coronary artery calcification is present. No significant pericardial effusion. ABDOMEN: LIVER: A rounded hypoattenuating lesion within the lateral right hepatic lobe has enlarged, now measuring 3.5 x 3.2 x 3.2 cm in diameter. Margins of this lesion are ill-defined. There is overlying capsular retraction. Right hepatic lobe is elongated measuring 18.4 cm in cephalocaudal dimension. GALLBLADDER AND BILE DUCTS: Unremarkable. No calcified gallstones. No gallbladder distention or wall edema. No intra- or extrahepatic biliary ductal dilation. PANCREAS: Pancreas is atrophic. No findings of acute pancreatitis. No focal cystic mass. SPLEEN: Spleen remains enlarged measuring 15.7 cm in cephalocaudal dimension. ADRENALS: Unremarkable. No nodules. KIDNEYS AND URETERS: Simple cyst noted in the lower pole of the right kidney, and requires no follow-up. On the left, mild hydronephrosis has developed with extensive left-sided perirenal stranding and minimal perirenal fluid. Within the proximal third of the right ureter are 2 adjacent obstructing stones, measuring 2 and 5 mm in diameter. A 3 mm nonobstructing stone is seen within the left renal lower pole collecting system. No right renal calculi are identified. STOMACH AND BOWEL: Findings prior partial gastrectomy are now present. No distended small bowel loops are seen. Numerous normal-sized lymph nodes are again noted within the jejunal mesentery. Sutures and metallic clips are now present about the duodenal C-loop. PELVIS: APPENDIX: No evidence of acute appendicitis. BLADDER: Unremarkable. REPRODUCTIVE: Unremarkable as visualized. No mass. ABDOMEN and PELVIS: INTRAPERITONEAL SPACE: Unremarkable. No ascites or other fluid collection. No free air. BONES/JOINTS: No acute osseous abnormality. Previous lower lumbar midline laminectomy. Severe degenerative disc space narrowing again noted at the L4/5 level with vacuum disc phenomenon and marginal osteophytes. Stable grade 1 anterolisthesis of L4 on L5. Following osteophytes noted about the lower thoracic disc spaces. Lumbar facet arthritis is present. No suspicious lytic or blastic abnormality. SOFT TISSUES: Unremarkable. No discrete abdominal or pelvic wall hernia. VASCULATURE: Abdominal aorta is minimally calcific, and is normal in caliber. Fat-filled left inguinal hernia. LYMPH NODES: No para-aortic adenopathy. CT/Abdomen/Pelvis without Cont IMPRESSION: Mild left hydronephrosis due to 2 adjacent obstructing stones within the proximal third of the ureter. Extensive perirenal stranding and a small amount of associated perirenal fluid on the left, suggesting forniceal rupture due to the obstruction. Status post partial gastrectomy. Hypoattenuating 3.5 cm mass within the right hepatic lobe with overlying capsular retraction; this lesion has enlarged and the capsular retraction has developed developed since the prior study. This is not a simple cyst, and could represent primary hepatic neoplasm, metastatic lesion or previously treated metastasis. Hepatic MR may be of benefit for further characterization. Non-standard communication protocol initiated. Electronically Signed: Ian Artis MD at 4:45 EST ,
--- NOTE | 2022-09-11 03:32 | ED.VIS.GI ---
HPI HPI - GI History of Present Illness Chief Complaint: Abd Pain Informant: patient and family Abdominal Pain/Flank Pain Onset: Hours Context: Gradual Onset Timing: Continuous Quality: Aching, Cramping and Sharp Location: LLQ Current Severity: Moderate Maximum Severity: Severe Nausea/Vomiting/Emesis GI Symptom: Positive for Nausea and Vomiting Narrative Narrative: Patient presents via EMS secondary to left lower quadrant abdominal pain. He states pain started a couple hours ago and has been progressive. He had nausea and vomiting secondary to the pain. Patient does have a history of stomach cancer and is undergoing treatment with Dr. Shane. [facility] Medical History Arthritis Back pain Gastric cancer Heartburn History of stress test (~11/29/19) Hx of gout Hypertension Injury of back Kidney stones Non-smoker Normal echocardiogram (~11/29/19) Shortness of breath on exertion Home Medications hydrochlorothiazide 12.5 mg tablet 12.5 mg PO DAILY 03/07/21 [History Last Taken Unknown] losartan 50 mg tablet 50 mg PO DAILY 03/07/21 [History Last Taken Unknown] meloxicam 15 mg tablet 15 mg PO DAILY 03/07/21 [History Last Taken Unknown] allopurinol 100 mg tablet 100 mg PO DAILY 11/28/21 [History Last Taken Unknown] colchicine 0.6 mg tablet 0.6 mg PO PRN PRN gout 11/28/21 [History Last Taken Unknown] imatinib 400 mg tablet 400 mg PO DAILY 11/28/21 [History Last Taken Unknown] pantoprazole 40 mg tablet,delayed release 40 mg PO DAILY 11/28/21 [History Last Taken Unknown] potassium chloride 20 mEq tablet,extended release 20 meq PO DAILY 11/28/21 [History Last Taken Unknown] Allergy/AdvReac Type Severity Reaction Status Date / Time No Known Allergies Allergy Verified 11/28/21 12:06 Surgical History History of back surgery History of left heart catheterization (11/29/19) Hx of cystoscopy (~08/27/18) Social History Smoking Status: Never smoker ROS ROS ED Constitutional Constitutional ED: Denies chills or fever(s) Eyes Eyes: Denies change in vision or discharge from eye(s) ENT ENT ED: Denies discharge from eye(s), rhinorrhea or sore throat Cardiovascular Cardiovascular: Denies chest pain or palpitations Respiratory/Chest Respiratory/Chest: Denies cough or dyspnea Gastrointestinal Gastrointestinal: Reports abdominal pain, nausea and vomiting; Denies diarrhea Genitourinary Genitourinary ED: Denies dysuria Musculoskeletal Musculoskeletal: Denies back pain or extremity pain Integumentary Denies Abrasions or rash Neurologic Neurologic: Denies headache(s) or weakness Allergic/Immunologic Allergic/Immunologic ED: Denies lip swelling or urticaria EXAM Physical Exam Const Vital Signs: 09/11/22 03:18 Temperature 97.2 F L Temperature Source Temporal Pulse Rate 54 L Respiratory Rate 18 Blood Pressure 184/69 H Blood Pressure Mean 107 Pulse Ox 99 Oxygen Delivery Method Room Air Positive well nourished and well developed General Appearance ED: well developed HEENT Reports normocephalic and head/scalp atraumatic Eyes PERRL and EOMs intact bilaterally Neck supple Chest Wall inspection of chest normal and palpation of chest normal Resp normal respiratory effort and clear to auscultation bilaterally Cardio regular rate and regular rhythm GI GI Narrative: Mild tenderness left lower quadrant. Hypoactive but present bowel sounds are noted. Palpation: soft Extremity normal to inspection Neuro oriented x3 and no sensory deficits noted Sensorium / Orientation: alert Motor Exam: strength 5/5 throughout Psych mental status grossly normal Skin no rashes or lesions noted MDM MDM MDM Narrative Medical decision making narrative: Patient was given Dilaudid and Zofran for pain. Lab work, urinalysis, CT flank obtained. Lab Data Attestation: I reviewed the patient's lab results. Labs: Laboratory Results - last 24 hr 09/11/22 09/11/22 09/11/22 03:30 03:30 04:05 WBC 10.2 RBC 4.34 L Hgb 13.1 Hct 39.3 L MCV 90.6 MCH 30.2 MCHC 33.3 RDW Std Deviation 45.1 H RDW Coeff of Hkloe 13.5 Plt Count 184 MPV 8.1 Immature Gran % (Auto) 0.600 Neut % (Auto) 85.0 H Lymph % (Auto) 6.5 L [place] % (Auto) 6.1 Eos % (Auto) 1.6 Baso % (Auto) 0.2 Absolute Neuts (auto) 8.7 H Absolute Lymphs (auto) 0.66 L Nucleated RBC % 0 Sodium 141 Potassium 3.5 Chloride 110 H Carbon Dioxide 27.0 Anion Gap 4 L BUN 17 Creatinine 1.60 H Estim Creat Clear Calc 40.38 Est GFR (MDRD) Af Amer 55 L Est GFR (MDRD) Non-Af 45 L BUN/Creatinine Ratio 10.6 Glucose 108 H Calcium 8.2 L Total Bilirubin 0.50 Direct Bilirubin 0.14 AST 32 ALT 31 Alkaline Phosphatase 90 Total Protein 6.6 Albumin 3.3 Globulin 3.3 Urine Color Yellow Urine Clarity Clear Urine pH 6.0 Ur Specific [place] 1.020 Urine Protein 30 H Urine Glucose (UA) Normal Urine Ketones Negative Urine Occult Blood 10 H Urine Nitrite Negative Urine Bilirubin Negative Urine Urobilinogen Normal Ur Leukocyte Esterase Negative Urine RBC 0 SEEN Urine WBC 0-5 SEEN Ur Squamous Epith Cells 0-5 SEEN Urine Bacteria RARE Urine Mucus 0 SEEN Radiography Diagnostic Testing: Clinical Impression(s) from Imaging Studies Abdomen/Pelvis CT 09/11/22 03:32 IMPRESSION: Mild left hydronephrosis due to 2 adjacent obstructing stones within the proximal third of the ureter. Extensive perirenal stranding and a small amount of associated perirenal fluid on the left, suggesting forniceal rupture due to the obstruction. Status post partial gastrectomy. Hypoattenuating 3.5 cm mass within the right hepatic lobe with overlying capsular retraction; this lesion has enlarged and the capsular retraction has developed developed since the prior study. This is not a simple cyst, and could represent primary hepatic neoplasm, metastatic lesion or previously treated metastasis. Hepatic MR may be of benefit for further characterization. Non-standard communication protocol initiated. Electronically Signed: Ian Artis MD at 4:45 EST , ADDENDUM: 09/11/22 9305 IMPRESSION: Mild left hydronephrosis due to 2 adjacent obstructing stones within the proximal third of the ureter. Extensive perirenal stranding and a small amount of associated perirenal fluid on the left, suggesting forniceal rupture due to the obstruction. Status post partial gastrectomy. Hypoattenuating 3.5 cm mass within the right hepatic lobe with overlying capsular retraction; this lesion has enlarged and the capsular retraction has developed developed since the prior study. This is not a simple cyst, and could represent primary hepatic neoplasm, metastatic lesion or previously treated metastasis. Hepatic MR may be of benefit for further characterization. Non-standard communication protocol initiated. N.B. : ARIN Mccarthy, confirmed on 09/11/2022 04:55:49 (ET) that the healthcare facility has received the radiology report. Electronically Signed: Ian Artis MD at 4:45 EST , Treatment and Re-Evaluation Narrative: CBC and chemistry studies remarkable for creatinine of 1.6. Appears his baseline is around 1.3 or so but he has been well over 2 in the past. Urinalysis reveals no sign of acute infection. CT flank reveals mild left hydronephrosis due to 2 adjacent obstructing stones in the proximal third of the ureter. There is extensive perirenal stranding and a small amount of perirenal fluid on the left suggesting forniceal rupture due to obstruction. He also has findings noted in the liver. Son states that Dr. Shane has been watching a spot in the liver Given the obstruction and perirenal fluid collection I spoke with Dr. To. Patient's pain is returning at this point he has been redosed with Dilaudid. Dr. To will admit the patient overnight for pain control and further evaluation.. Discharge Plan Triage Chief Complaint: Abd Pain ED Provider: Kylah Urban Dx/Rx/DC Orders Clinical Impression: Ureterolithiasis Prescriptions: No Action meloxicam 15 mg tablet 15 mg PO DAILY Label Comments: TAKE 1 TABLET BY MOUTH ONCE DAILY losartan 50 mg tablet 50 mg PO DAILY Label Comments: TAKE 1 TABLET BY MOUTH ONCE DAILY hydrochlorothiazide 12.5 mg tablet 12.5 mg PO DAILY Label Comments: TAKE 1 TABLET BY MOUTH ONCE DAILY allopurinol 100 mg tablet 100 mg PO DAILY Label Comments: TAKE 1 TABLET BY MOUTH ONCE DAILY pantoprazole 40 mg Tablet,Delayed Release (Dr/Ec) 40 mg PO DAILY colchicine 0.6 mg tablet 0.6 mg PO PRN PRN (Reason: gout) imatinib 400 mg Tablet 400 mg PO DAILY potassium chloride 20 mEq Tablet Extended Release 20 meq PO DAILY Primary Care Provider: Reji Knox Referrals: Reji Knox MD [Primary Care Provider] - Disposition Disposition: Acute Care Hospital [facility]
[2022-09-11] MEDS: HYDROmorphone 1 MG/ML Syringe 0.5 MG IV (03:36)
[2022-09-11 03:37] LABS: Absolute Lymphocyte Count 0.66 X10^3/uL (0.83-4.51); Absolute Neutrophil Count 8.7 X10^3/uL (2.0-7.7); Basophil# 0.02 X10^3/uL; Basophil% 0.2 % (0-1); Eosinophil# 0.16 X10^3/uL; Eosinophils% 1.6 % (0-5); Hematocrit 39.3 % (40-54); Hemoglobin 13.1 g/dL (13.0-16.5); Lymphocyte # 0.66 X10^3/ul (0.83-4.51); Lymphocyte % 6.5 % (19-41); Mean Corp Hgb Conc 33.3 g/dL (32-36); Mean Corpuscular Hgb 30.2 pg (27.0-32.0); Mean Corpuscular Volume 90.6 fL (80-94); Mean Platelet Vol. 8.1 fl (6.2-12.0); Monocyte# 0.62 X10^3/uL; Monocyte% 6.1 % (0-10); NRBC Flagged by Analyzer 0 % (0-5); Platelet Count 184 K/mm3 (150-450); RBC Distribution Width CV 13.5 % (11.6-14.6); RBC Distribution Width SD 45.1 fl (35.1-43.9); Red Blood Count 4.34 M/mm3 (4.6-6.2); White Blood Count 10.2 K/mm3 (4.4-11.0)
[2022-09-11] MEDS: Ondansetron 4 MG/2 ML Vial IV (03:37)
[2022-09-11] MEDS: 0.9% Normal Saline 1,000 ML 150 ML IV ×2 (03:47→07:03)
[2022-09-11 04:11] LABS: Mucous, Urine 0 SEEN /hpf (<or=2+); Red Blood Cells-Urine 0 SEEN /hpf (0-5)
[2022-09-11 04:11] LABS: AST(SGOT) 32 U/L (15-37); Alanine Aminotransfer ALT/SGPT 31 U/L (16-61); Albumin, Serum 3.3 g/dL (3.2-5.0); Alkaline Phosphatase 90 U/L (45-117); Anion Gap 4 (5-15); BUN 17 mg/dL (7-18); BUN/Creat Ratio 10.6 RATIO (10-20); Bilirubin, Direct 0.14 mg/dL (0.00-0.30); Calcium,Total 8.2 mg/dL (8.5-10.1); Chloride 110 mmol/L (98-107); EST Glomerular Filtration Rate 45 mL/min (>60); Est Glom Filt Rate - Afr Amer 55 mL/min (>60); Estimated Creatinine Clearance 40.38 ml/min; Globulin 3.3 g/dL (2.2-4.2); Glucose 108 mg/dL (74-106); Potassium 3.5 mmol/L (3.5-5.1); Protein, Total 6.6 g/dL (6.4-8.2); Sodium Level 141 mmol/L (136-145)
[2022-09-11 04:12] LABS: Color, Urine Yellow (Yellow); Glucose, Dipstick Normal (Normal); Ketone-Dipstick Negative (Negative); Leukocyte Esterase-Dipstick Negative /ul (Negative); Nitrite-Dipstick Negative (Negative); Occult Blood-Urine 10 /ul (Negative); Protein-Dipstick 30 mg/dl (Negative); Urine Bilirubin Dipstick Negative (Negative); Urine Clarity Clear (Clear); Urine Urobilinogen Normal (Normal)
[2022-09-11 04:18] LABS: Bacteria RARE /hpf (None Seen); Squamous Epithelial Cells - UA 0-5 SEEN /hpf (0-5); White Blood Cells 0-5 SEEN /hpf (0-5)
[2022-09-11] MEDS: HYDROmorphone 0.5 MG/0.5 ML SYRINGE IV (04:59)
[2022-09-11] MEDS: Morphine 2 MG/ML Syringe IV (09:18)
[2022-09-11] MEDS: 0.9% Saline Lock 10 ML Syringe IV (09:18)
[2022-09-11] MEDS: Ketorolac 15 MG/ML Vial IV (09:38)
[2022-09-11] MEDS: Cefazolin 1 GM/50 ML BAG IV (10:28)
--- NOTE | 2022-09-11 10:28 | PCM.HP.STD ---
HPI - General General Date of Admission: 09/11/22 HPI Narrative YU RECINOS, is a 71 M who presents with a 7 mm mid ureteral stone causing obstruction on the left kidney has a forniceal rupture and plan to taken the surgery today for cystoscopy left stent placement [facility] Medical History Arthritis Back pain Gastric cancer Heartburn History of stress test (~11/29/19) Hx of gout Hypertension Hypothyroidism Injury of back Kidney stones Non-smoker Normal echocardiogram (~11/29/19) Shortness of breath on exertion Home Medications hydrochlorothiazide 12.5 mg tablet 12.5 mg PO DAILY 03/07/21 [History Last Taken Unknown] losartan 50 mg tablet 50 mg PO DAILY 03/07/21 [History Last Taken Unknown] meloxicam 15 mg tablet 15 mg PO DAILY 03/07/21 [History Last Taken Unknown] allopurinol 100 mg tablet 100 mg PO DAILY 11/28/21 [History Last Taken Unknown] colchicine 0.6 mg tablet 0.6 mg PO PRN PRN gout 11/28/21 [History Last Taken Unknown] imatinib 400 mg tablet 400 mg PO DAILY 11/28/21 [History Last Taken Unknown] levothyroxine 175 mcg tablet 175 mcg PO DAILY 09/11/22 [History Last Taken Unknown] Allergy/AdvReac Type Severity Reaction Status Date / Time No Known Allergies Allergy Verified 11/28/21 12:06 Surgical History History of back surgery History of left heart catheterization (11/29/19) Hx of cystoscopy (~08/27/18) Social History Smoking Status: Never smoker ROS Constitutional Constitutional: Denies chills, fever(s) or malaise Eyes Eyes: Denies blurry vision or change in vision ENT HEENT: Reports none Cardiovascular Cardiovascular: Denies chest pain or palpitations Respiratory/Chest Respiratory/Chest: Denies cough or shortness of breath with exertion Gastrointestinal Gastrointestinal: Denies abdominal pain, constipation or diarrhea Musculoskeletal Musculoskeletal: Denies back pain, joint stiffness or joint swelling Integumentary Integumentary: Denies dry skin, jaundice, lesions or rash Neurologic Neurologic: Denies confusion, syncope or weakness Psychiatric Psychiatric: Reports none; Denies anxiety or depression Endocrine Endocrinology: Denies excessive sweating, fatigue or flushing Hematologic/Lymphatic Hematologic/Lymphatic: Denies anemia, easy bleeding or easy bruising Vital Signs Vital Signs Vital Signs: 09/11/22 03:18 09/11/22 05:32 09/11/22 06:34 Temperature 97.2 F L 97.6 F L 98.2 F Temperature Source Temporal Temporal Oral Pulse Rate 54 L 50 L 50 L Pulse Strength Respiratory Rate 18 17 16 Respiratory Effort Respiratory Depth Respiratory Pattern Blood Pressure 184/69 H 173/74 H 165/74 H Blood Pressure [BP] Blood Pressure Mean 107 107 104 Blood Pressure Mean [BP] Blood Pressure Source Blood Pressure Source [BP] Blood Pressure Position [BP] Blood Pressure Location [BP] Pulse Ox 99 99 100 Oxygen Delivery Method Room Air Nasal Cannula Nasal Cannula Oxygen Flow Rate (L/min) 2 2 09/11/22 07:27 09/11/22 07:47 09/11/22 07:50 Temperature 98.2 F Temperature Source Oral Pulse Rate 59 L 50 L Pulse Strength Respiratory Rate 16 Respiratory Effort Normal Non-Labored Respiratory Depth Normal Respiratory Pattern Normal Blood Pressure 165/74 H Blood Pressure [BP] Blood Pressure Mean 104 Blood Pressure Mean [BP] Blood Pressure Source Blood Pressure Source [BP] Blood Pressure Position [BP] Blood Pressure Location [BP] Pulse Ox 100 Oxygen Delivery Method Nasal Cannula Nasal Cannula Oxygen Flow Rate (L/min) 2 2 09/11/22 09:24 09/11/22 09:26 09/11/22 10:07 Temperature 98.0 F Temperature Source Oral Pulse Rate 48 L Pulse Strength Normal (2+) Respiratory Rate 16 Respiratory Effort Respiratory Depth Respiratory Pattern Blood Pressure 203/87 H Blood Pressure [BP] 154/76 H Blood Pressure Mean 125 Blood Pressure Mean [BP] 102 Blood Pressure Source Monitor Blood Pressure Source [BP] Monitor Blood Pressure Position [BP] Semi-Fowlers Blood Pressure Location [BP] Right Arm Pulse Ox 98 Oxygen Delivery Method Room Air Oxygen Flow Rate (L/min) Weight Weight: 89.7 kg Body Mass Index (BMI) 30.0 Physical Exam Const alert and oriented x3 General Appearance: cooperative HEENT normocephalic, head/scalp atraumatic, EAC's normal and TM's normal bilaterally Eyes PERRL and EOMs intact bilaterally Pupil: sluggish Neck no lymphadenopathy, supple and no JVD General: trachea midline Lymph Lymphatic: no lymphadenopathy noted, lymphedema and lymphadenopathy Resp normal respiratory effort, normal air movement and clear to auscultation bilaterally Cardio regular rate, regular rhythm and peripheral pulses 2+ throughout GI soft to palpation, non-tender and non-distended Extremity normal capillary refill and no clubbing, cyanosis or edema General Extremity: no tenderness to palpation of joints or extremities Skin no rashes or lesions noted General Skin Exam: turgor normal Lesions: no lesions Rashes: no rashes Neuro CN's II-XII intact bilaterally Speech: speech normal Motor Exam: strength 5/5 throughout; Negative for general weakness Psych thought process normal, cooperative and affect normal Appearance: appropriate Results Lab / Micro Data Result Diagrams: 09/11/22 03:30 09/11/22 03:30 Labs: Laboratory Results - last 24 hr 09/11/22 03:30: WBC 10.2, RBC 4.34 L, Hgb 13.1, Hct 39.3 L, MCV 90.6, MCH 30.2, MCHC 33.3, RDW Std Deviation 45.1 H, RDW Coeff of Khloe 13.5, Plt Count 184, MPV 8.1, Immature Gran % (Auto) 0.600, Neut % (Auto) 85.0 H, Lymph % (Auto) 6.5 L, [place] % (Auto) 6.1, Eos % (Auto) 1.6, Baso % (Auto) 0.2, Absolute Neuts (auto) 8.7 H, Absolute Lymphs (auto) 0.66 L, Nucleated RBC % 0 09/11/22 03:30: Sodium 141, Potassium 3.5, Chloride 110 H, Carbon Dioxide 27.0, Anion Gap 4 L, BUN 17, Creatinine 1.60 H, Estim Creat Clear Calc 40.38, Est GFR (MDRD) Af Amer 55 L, Est GFR (MDRD) Non-Af 45 L, BUN/Creatinine Ratio 10.6, Glucose 108 H, Calcium 8.2 L, Total Bilirubin 0.50, Direct Bilirubin 0.14, AST 32, ALT 31, Alkaline Phosphatase 90, Total Protein 6.6, Albumin 3.3, Globulin 3.3 09/11/22 04:05: Urine Color Yellow, Urine Clarity Clear, Urine pH 6.0, Ur Specific [place] 1.020, Urine Protein 30 H, Urine Glucose (UA) Normal, Urine Ketones Negative, Urine Occult Blood 10 H, Urine Nitrite Negative, Urine Bilirubin Negative, Urine Urobilinogen Normal, Ur Leukocyte Esterase Negative, Urine RBC 0 SEEN, Urine WBC 0-5 SEEN, Ur Squamous Epith Cells 0-5 SEEN, Urine Bacteria RARE, Urine Mucus 0 SEEN Radiology Impression Abdomen/Pelvis CT 09/11/22 03:32 IMPRESSION: Mild left hydronephrosis due to 2 adjacent obstructing stones within the proximal third of the ureter. Extensive perirenal stranding and a small amount of associated perirenal fluid on the left, suggesting forniceal rupture due to the obstruction. Status post partial gastrectomy. Hypoattenuating 3.5 cm mass within the right hepatic lobe with overlying capsular retraction; this lesion has enlarged and the capsular retraction has developed developed since the prior study. This is not a simple cyst, and could represent primary hepatic neoplasm, metastatic lesion or previously treated metastasis. Hepatic MR may be of benefit for further characterization. Non-standard communication protocol initiated. Electronically Signed: Ian Artis MD at 4:45 EST , ADDENDUM: 09/11/22 0502 IMPRESSION: Mild left hydronephrosis due to 2 adjacent obstructing stones within the proximal third of the ureter. Extensive perirenal stranding and a small amount of associated perirenal fluid on the left, suggesting forniceal rupture due to the obstruction. Status post partial gastrectomy. Hypoattenuating 3.5 cm mass within the right hepatic lobe with overlying capsular retraction; this lesion has enlarged and the capsular retraction has developed developed since the prior study. This is not a simple cyst, and could represent primary hepatic neoplasm, metastatic lesion or previously treated metastasis. Hepatic MR may be of benefit for further characterization. Non-standard communication protocol initiated. N.B. : ARIN Mccarthy, confirmed on 09/11/2022 04:55:49 (ET) that the healthcare facility has received the radiology report. Electronically Signed: Ian Artis MD at 4:45 EST , Assessment & Plan Assessment/Plan (1) Left ureteral calculus: PLAN: Plan for cystoscopy left stent placement (2) Hydronephrosis, left: (3) Hypertension:
--- NOTE | 2022-09-11 10:32 | DCINST_ITS ---
Discharge Instructions Diet Discharge Diet: No restrictions, Light diet - advance as tolerated and Soft diet Activity Discharge Activity: Return to Normal Activity Follow Up Care Please Follow Up With: Manfred To MD When: call to set up Surgery Test Results: Test results from this visit will be discussed in further detail at your follow- up appointment, if applicable. Discharge Plan Admission Admit Date/Time: 09/11/22 05:20 Primary Reason for Your Visit: Left stent placement Attending Provider: Manfred To Primary Care Provider: Reji Knox Discharge Orders/Prescriptions Prescriptions: New oxycodone-acetaminophen 5-325 mg tablet 1 tab PO Q4H PRN (Reason: pain) 7 Days Qty: 20 0RF ciprofloxacin HCl [Cipro] 500 mg tablet 500 mg PO BID Qty: 6 0RF Continued meloxicam 15 mg tablet 15 mg PO DAILY Label Comments: TAKE 1 TABLET BY MOUTH ONCE DAILY losartan 50 mg tablet 50 mg PO DAILY Label Comments: TAKE 1 TABLET BY MOUTH ONCE DAILY hydrochlorothiazide 12.5 mg tablet 12.5 mg PO DAILY Label Comments: TAKE 1 TABLET BY MOUTH ONCE DAILY allopurinol 100 mg tablet 100 mg PO DAILY Label Comments: TAKE 1 TABLET BY MOUTH ONCE DAILY colchicine 0.6 mg tablet 0.6 mg PO PRN PRN (Reason: gout) imatinib 400 mg Tablet 400 mg PO DAILY levothyroxine 175 mcg tablet 175 mcg PO DAILY Label Comments: TAKE 1 TABLET BY MOUTH ONCE DAILY Referrals / Follow Up: Manfred To MD [Med Staff - Active Staff] - Reji Knox MD [Primary Care Provider] -
[2022-09-11] MEDS: Lidocaine Jelly 2% 20 ML Syringe (URO-JET) 1 APPLIC (10:44)
--- NOTE | 2022-09-11 10:56 | OP.PCM_ITS ---
Report of Operation Date of Procedure: 09/11/22 Pre-Operative Diagnosis: Left mid ureteral calculi Post-Operative Diagnosis: Same Surgery/Procedure Performed:: Cystoscopy and left stent placement with retrograde pyelogram Description of Surgical Findings:: Patient was taken back to the operating room after induction of general anesthesia, the patient was placed in dorsolithotomy position. The urethra and genitals were prepped and draped in usual sterile fashion. Using a 21 Palestinian rigid cystourethroscope the entire length of the urethra was normal then went into the bladder. Identified the trigone the left and right ureteral orifice. I then cannulated the Left orifice and advanced a wire up into the kidney. I then backloaded a 5 Palestinian open ended catheter over the wire and injected contrast to delineate the anatomy. After the retrograde was performed I then used fluoroscopic images and guidance to advanced a wire up into the kidney and over the 0.038 glidewire I advanced a 6 Palestinian by 26 cm double pigtail stent. I then pulled the 0.038 Glidewire off and the stent coiled in the kidney bladder good position. The bladder was then drained. We confirmed the position of the stent by fluoroscopy. Patient anesthetic was reversed and was taken back to the PACU in good condition. Surgeon: Manfred To Type of Anesthesia: General Drains: left stent Admit VTE Documentation VTE Present on Admission: No VTE Mechan Device Prophylaxis: SCD's VTE Pharm Prophylaxis ordered?: No
[2022-09-11] MEDS: FLU VACC QS2022-23(6MOS UP)/PF 60 MCG/0.5 ML SYRINGE IM (14:25)
--- NOTE | 2022-09-15 14:17 | CASEMGMT ---
INCIDENTAL FINDING F/U -Per [facility] report: EXAM:? CT ABDOMEN AND PELVIS WITHOUT INTRAVENOUS CONTRAST. Hypoattenuating 3.5 cm mass within the right hepatic lobe with overlying capsular retraction; this lesion has enlarged and the capsular retraction has developed developed since the prior study.? This is not a simple cyst, and could represent primary hepatic neoplasm, metastatic lesion or previously treated metastasis.? Hepatic MR may be of benefit for further characterization. -1416: TC to pt to discuss the above. No answer. [employer] Administrative Assistant left a voicemail with name and phone contact.
== END 2022-09-11 12:39 | disposition home or self-care (01) ==
LOC: ED 05:06 → PCU 06:43
PROVIDERS: Admitting Provider Urology; Emergency Provider Emergency Medicine; PCP Family Medicine; Visit Provider Urology
PROC: 0TJB8ZZ Inspection of Bladder, Via Natural or Artificial Opening Endoscopic (ICD-10-PCS; CPT 52000; principal; 2022-09-11 11:30)
DX: N13.2 Hydronephrosis with renal and ureteral calculous obstruction (principal); Z98.84 Bariatric surgery status; I10 Essential (primary) hypertension; M10.9 Gout, unspecified; M19.90 Unspecified osteoarthritis, unspecified site; Z79.899 Other long term (current) drug therapy; E03.9 Hypothyroidism, unspecified; Z79.890 Hormone replacement therapy; Z23 Encounter for immunization
CPT/HCPCS: 52332; 00910; 74176; 76000; 80048; 80076; 81001; 85025; 96361; 96374; 96375; 96376; 99285; G0008; J7030; 90686; A4216; C1769; C2617; J2405

== ENCOUNTER → 2023-01-06 | Outpatient (CLI) | payer MEDICARE, SELFPAY | END | disposition home or self-care (01) | LOC: MFPLAB 17:00 | PROVIDERS: PCP Family Medicine; Visit Provider Family Medicine | DX: E29.1 Testicular hypofunction (principal) | CPT/HCPCS: 36415; 84403 ==

== ENCOUNTER → 2024-05-08 | Outpatient (CLI) | payer SELFPAY ==
[2024-05-08 10:54] LABS: Anion Gap 7 (5-15); BUN 18 mg/dL (7-18); BUN/Creat Ratio 13.5 RATIO (10-20); Calcium,Total 8.6 mg/dL (8.5-10.1); Chloride 105 mmol/L (98-107); Cholesterol 99 mg/dL (200); Creatinine, Serum 1.33 mg/dL (0.70-1.30); EST Glomerular Filtration Rate 56 mL/min (>60); Est Glom Filt Rate - Afr Amer 68 mL/min (>60); Glucose 100 mg/dL (74-106); High Density Lipoprotein 29 mg/dL; Potassium 3.9 mmol/L (3.5-5.1); Sodium Level 137 mmol/L (136-145); Triglycerides 61 mg/dL; Very Low Density Lipoprotein 12 mg/dL (5-40)
== END | disposition home or self-care (01) ==
LOC: MFPLAB 08:34
PROVIDERS: PCP Family Medicine; Visit Provider Family Medicine
DX: I10 Essential (primary) hypertension (principal)
CPT/HCPCS: 36415; 80048; 80061